=== PATIENT | female | born 1955 | race Caucasian/White ===

== ENCOUNTER 2016-09-15 19:35 | Emergency (ER) | payer BC, OTHER ==
--- NOTE | 2016-09-15 20:22 | EDM.PDOC ---
ED HPI GENERAL MEDICAL PROBLEM - General Chief Complaint: General Stated Complaint: fell Time Seen by Provider: 09/15/16 19:40 Source of Information: Reports: Patient History Limitations: Reports: No Limitations - History of Present Illness INITIAL COMMENTS - FREE TEXT/NARRATIVE: According to patient she was taking her dog for walk, her dog as barking at something and she turned back to look and continued to walk and tripped over the dog and fell, landed of her right forearm and sustained deep abrasion and skin tear over the upper forearm. Able to move her elbow not in pain presently. Pt is not sure of her last tetanus shot. no other injuries. Onset: Today Onset Date: 09/15/16 Onset Time: 19:00 Location: Reports: Other (right elbow) Quality: Reports: Ache Severity: Mild Improves with: Reports: None Worsens with: Reports: None Associated Symptoms: Denies: Confusion, Cough, Fever/Chills, Loss of Appetite, Rash, Shortness of Breath, Syncope, Weakness - Related Data Allergies Allergy/AdvReac Type Severity Reaction Status Date / Time adhesive tape Allergy Intermediate itching Verified 12/20/15 01:18 rash adhesive Allergy itching Verified 12/20/15 01:18 rash Home Meds: Home Meds Amitriptyline [Elavil] 100 mg PO BEDTIME 03/04/13 [History] DULoxetine HCl [Cymbalta] 60 mg PO DAILY 03/04/13 [History] Hydrocodone/Acetaminophen [Hydrocodon-Acetaminophn 10-325] 1 tab PO Q8H PRN [History] Ibuprofen 800 mg PO Q8H PRN 03/04/13 [History] Levothyroxine [Synthroid] 50 mcg PO DAILY 03/04/13 [History] RABEprazole Sodium [Aciphex] 20 mg PO DAILY 03/04/13 [History] Albuterol Sulfate [Proair Respiclick] 90 mcg IH Q4H PRN 09/13/15 [History] Lisinopril 10 mg PO DAILY 09/13/15 [History] Methocarbamol [Methocarbamol] 500 mg PO TID 09/13/15 [History] Potassium Chloride 20 meq PO DAILY 09/13/15 [History] hydrOXYzine HCl [hydrOXYzine] 10 mg PO DAILY 09/13/15 [History] Past Medical History HEENT History: Reports: Impaired Vision Cardiovascular History: Reports: None, Hypertension Respiratory History: Reports: Asthma Gastrointestinal History: Reports: GERD, Other (See Below) Other Gastrointestinal History: constipation Genitourinary History: Reports: Acute Renal Failure 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 parity: 2, gravity: 2 Musculoskeletal History: Reports: Fracture, Osteoarthritis Other Musculoskeletal History: arthritis especially in shoulders, severe fx with plate rt femur, repaired several times shoulders injected with steriods fracture right lower leg 2 days ago fell Psychiatric History: Reports: Addiction, Anxiety, Depression Other Psychiatric History: please note: patient states she stopped smoking approx 8 months ago Endocrine/Metabolic History: Reports: Hypothyroidism, Other (See Below), Osteoporosis, Osteopenia Other Endocrine/Metabolic History: hx of osteomylitis Oncologic (Cancer) History: Reports: None Dermatologic History: Reports: Other (See Below) Other Dermatologic History: Has some allergies whch cause hives, not sure of the source - Infectious Disease History Infectious Disease History: Reports: Chicken Pox, Measles, Mumps - Past Surgical History HEENT Surgical History: Reports: Other (See Below) GI Surgical History: Reports: Hernia, Abdominal Musculoskeletal Surgical History: Reports: Other (See Below) - History Comment History Comment: Pt has a drinking problem recently drawn to my attention. Is also on narcotics for the fracture of her right upper leg, osteomyelitis also - treated at the [facility] in the past year Social & Family History - Family History Family Medical History: Noncontributory - Tobacco Use Smoking Status *Q: Former Smoker Years of Tobacco use: 16 Packs/Tins Daily: 1 Used Tobacco, but Quit: Yes Month Tobacco Last Used: october Second Hand Smoke Exposure: No - Alcohol Use Days Per Week of Alcohol Use: 7 Number of Drinks Per Day: 4 Total Drinks Per Week: 28 - Recreational Drug Use Recreational Drug Use: No ED ROS GENERAL - Review of Systems Review Of Systems: See Below Constitutional: Denies: Fever, Chills HEENT: Denies: Rhinitis, Sinus Problem, Throat Pain, Throat Swelling Respiratory: Denies: Cough, Sputum Cardiovascular: Denies: Chest Pain, Lightheadedness GI/Abdominal: Denies: Abdominal Pain, Nausea, Vomiting : Denies: Dysuria, Flank Pain Musculoskeletal: Denies: Neck Pain, Joint Pain, Joint Swelling Skin: Reports: Bruising. Denies: Pruritis, Rash ED EXAM, GENERAL - Physical Exam Exam: See Below Exam Limited By: No Limitations General Appearance: Alert, WD/WN, No Apparent Distress Eye Exam: Bilateral Eye: EOMI, PERRL Ears: Normal External Exam, Normal Canal, Hearing Grossly Normal, Normal TMs Ear Exam: Bilateral Ear: Auricle Normal, Canal Normal, TM normal Nose: Normal Inspection, Normal Mucosa, No Blood Throat/Mouth: Normal Inspection, Normal Lips, Normal Teeth, Normal Gums, Normal Oropharynx, Normal Voice, No Airway Compromise Head: Atraumatic, Normocephalic Neck: Normal Inspection, Supple, Non-Tender, Full Range of Motion Respiratory/Chest: No Respiratory Distress, Lungs Clear, Normal Breath Sounds, No Accessory Muscle Use, Chest Non-Tender Cardiovascular: Normal Peripheral Pulses, Regular Rate, Rhythm, No Edema, No Gallop, No JVD, No Murmur, No Rub Peripheral Pulses: 2+: Brachial (R), Radial (L) Skin Exam: Warm, Other (Right elbow: there is a 2cm by 3cm skin tear with abrasion over the upper dorsal aspect of the forearm. the wound is hemostatic. there is no dirt contamination of the wound seen. the wound is only skin deep. Good ROM of the right elbow and wrist.) Course - Vital Signs Text/Narrative:: Pt has developed skin tear over the upper right forearm with abrasion. The wound is hemostatic. The wound was washed with normal saline and then iodoform vaseline guaze applied across the wound to prevent skin adherence to dressing. Pressure dressing applied. As she is not sure of her tetanus shot. Tetanus was given today. Advised tylenol 500mg 3-4 times daily as needed. Daily simple dressing. Infection precaution discussed. Followup in clinic next week for recheck. Departure - Departure Time of Disposition: 20:40 Disposition: Home, Self-Care 01 Condition: good Clinical Impression: Skin tear of right upper arm without complication - Discharge Information Forms: ED Department Discharge - Problem List & Annotations (1) Skin tear of right upper arm without complication SNOMED Code(s): 469435027 Code(s): S41.111A - LACERATION W/O FOREIGN BODY OF RIGHT UPPER ARM, INIT ENCNTR Status: Acute - Problem List Review Problem List Initiated/Reviewed/Updated: Yes - Assessment/Plan Assessment:: Skin tear over right forearm Plan: Pt has developed skin tear over the upper right forearm with abrasion. The wound is hemostatic. The wound was washed with normal saline and then iodoform vaseline guaze applied across the wound to prevent skin adherence to dressing. Pressure dressing applied. As she is not sure of her tetanus shot. Tetanus was given today. Advised tylenol 500mg 3-4 times daily as needed. Daily simple dressing. Infection precaution discussed. Followup in clinic next week for recheck.
[2016-09-15] MEDS ORDERED: Diphtheria/Tetanus Toxoids,Adult (Td) 0.5 ML SDV IM ONE (20:29)
[2016-09-16 00:19] VITALS: BP 136/111
== END 2016-09-15 20:32 | disposition home or self-care (01) ==
LOC: LB.ED 19:35
DX: S50.811A Abrasion of right forearm, initial encounter (principal); I10 Essential (primary) hypertension; J45.909 Unspecified asthma, uncomplicated; K21.9 Gastro-esophageal reflux disease without esophagitis; M19.90 Unspecified osteoarthritis, unspecified site; F41.9 Anxiety disorder, unspecified; F32.9 Major depressive disorder, single episode, unspecified; E03.9 Hypothyroidism, unspecified; M81.0 Age-related osteoporosis without current pathological fracture; Z98.890 Other specified postprocedural states; Z79.899 Other long term (current) drug therapy; Z23 Encounter for immunization; Z87.891 Personal history of nicotine dependence; W01.0XXA Fall on same level from slipping, tripping and stumbling without subsequent striking against object, initial encounter
CPT/HCPCS: 90471; 90714; 99283-25

== ENCOUNTER 2018-07-17 23:09 | Emergency (ER) | payer MEDICARE, BC, OTHER ==
[2018-07-17 23:32] VITALS: BP 126/108
--- NOTE | 2018-07-17 23:41 | EDM.PDOC ---
ED HPI GENERAL MEDICAL PROBLEM - General Chief Complaint: General Stated Complaint: POSSIBLE UE Fx Time Seen by Provider: 07/17/18 23:30 Source of Information: Reports: Patient, RN History Limitations: Reports: Intoxication - History of Present Illness INITIAL COMMENTS - FREE TEXT/NARRATIVE: 63 yr female presents to ER, brought in by EMS. Pt states she fell at home and hit the floor and now her right shoulder hurts. Right Shoulder Pain Score (Numeric/FACES): 7 - Related Data Allergies Allergy/AdvReac Type Severity Reaction Status Date / Time adhesive tape Allergy Intermediate itching Verified 07/17/18 23:31 rash adhesive Allergy itching Verified 07/17/18 23:31 rash prednisolone Allergy Nausea Verified 07/17/18 23:31 Home Meds: Home Meds Amitriptyline [Elavil] 100 mg PO BEDTIME 03/04/13 [History] DULoxetine HCl [Cymbalta] 60 mg PO DAILY 03/04/13 [History] Hydrocodone/Acetaminophen [Hydrocodon-Acetaminophn 10-325] 1 tab PO Q8H PRN [History] Ibuprofen 800 mg PO Q8H PRN 03/04/13 [History] Levothyroxine [Synthroid] 50 mcg PO DAILY 03/04/13 [History] RABEprazole Sodium [Aciphex] 20 mg PO DAILY 03/04/13 [History] Albuterol Sulfate [Proair Respiclick] 90 mcg IH Q4H PRN 09/13/15 [History] Lisinopril 10 mg PO DAILY 09/13/15 [History] Methocarbamol 500 mg PO TID 09/13/15 [History] Potassium Chloride 20 meq PO DAILY 09/13/15 [History] hydrOXYzine HCl [hydrOXYzine] 10 mg PO DAILY 09/13/15 [History] Past Medical History HEENT History: Reports: Impaired Vision Cardiovascular History: Reports: None, Hypertension Respiratory History: Reports: Asthma Gastrointestinal History: Reports: GERD, Other (See Below) Other Gastrointestinal History: constipation Genitourinary History: Reports: Acute Renal Failure 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 parity: 2, gravity: 2 Musculoskeletal History: Reports: Fracture, Osteoarthritis Other Musculoskeletal History: arthritis especially in shoulders, severe fx with plate rt femur, repaired several times shoulders injected with steriods fracture right lower leg 2 days ago fell Psychiatric History: Reports: Addiction, Anxiety, Depression Other Psychiatric History: please note: patient states she stopped smoking approx 8 months ago Endocrine/Metabolic History: Reports: Hypothyroidism, Other (See Below), Osteoporosis, Osteopenia Other Endocrine/Metabolic History: hx of osteomylitis Oncologic (Cancer) History: Reports: None Dermatologic History: Reports: Other (See Below) Other Dermatologic History: Has some allergies whch cause hives, not sure of the source - Infectious Disease History Infectious Disease History: Reports: Chicken Pox, Measles, Mumps - Past Surgical History HEENT Surgical History: Reports: Other (See Below) GI Surgical History: Reports: Hernia, Abdominal Musculoskeletal Surgical History: Reports: Other (See Below) - History Comment History Comment: Pt has a drinking problem recently drawn to my attention. Is also on narcotics for the fracture of her right upper leg, osteomyelitis also - treated at the [facility] in the past year Social & Family History - Family History Family Medical History: Noncontributory - Tobacco Use Smoking Status *Q: Current Every Day Smoker ED ROS GENERAL - Review of Systems Review Of Systems: See Below Constitutional: Reports: Weakness HEENT: Reports: No Symptoms Respiratory: Reports: No Symptoms Cardiovascular: Reports: No Symptoms Musculoskeletal: Reports: Shoulder Pain (right) Skin: Reports: Dryness, Bruising ED EXAM, GENERAL - Physical Exam Exam: See Below Exam Limited By: Intoxication General Appearance: Alert, No Apparent Distress Eye Exam: Bilateral Eye: PERRL Ears: Normal External Exam, Hearing Grossly Normal Nose: Normal Inspection, Normal Mucosa Throat/Mouth: Normal Lips, Normal Voice, No Airway Compromise Head: Atraumatic, Normocephalic. No: Facial Swelling, Facial Tenderness Neck: Supple, Non-Tender, Full Range of Motion Respiratory/Chest: No Respiratory Distress, Lungs Clear, Normal Breath Sounds Cardiovascular: Regular Rate, Rhythm, No Edema Peripheral Pulses: 2+: Radial (L), Radial (R) GI/Abdominal: Soft, Non-Tender Back Exam: Normal Inspection Extremities: Limited Range of Motion (right shoulder, moving extremities well.) , Other (pain with moving right shoulder, swelling to mid clavicle area). No: Arm Pain Neurological: Alert, Oriented Psychiatric: Normal Affect, Normal Mood Skin Exam: Warm, Dry, Other (multiple bruising/redness to arms and scabbed skin tears. Skin intact to shoulder and clavicle with mild swelling and bruising noted.) Lymphatic: No Adenopathy Course - Vital Signs Last Recorded V/S: Last Vital Signs Temp 98.1 F 07/17/18 23:22 Pulse 63 07/17/18 23:22 Resp 16 07/17/18 23:22 BP 126/108 H 07/17/18 23:22 Pulse Ox 93 L 07/17/18 23:22 - Orders/Labs/Meds Orders: Active Orders 24 hr Category Date Time Status Shoulder Comp Rt [CR] Stat Exams 07/17/18 23:39 Taken Departure - Departure Time of Disposition: 01:25 Disposition: Home, Self-Care 01 Condition: Fair Clinical Impression: Clavicle fracture - Discharge Information *PRESCRIPTION DRUG MONITORING PROGRAM REVIEWED*: Not Applicable *COPY OF PRESCRIPTION DRUG MONITORING REPORT IN PATIENT SARY: Not Applicable Instructions: Clavicle Fracture, [id number] Referrals: PCP,None [Primary Care Provider] - Forms: ED Department Discharge Additional Instructions: Keep applied immobilizer in place at all times. Apply cold compress to affected area for 10-15 minutes every 2-3 hours to help decrease swelling and for pain relief. Follow up in clinic tomorrow, , 07/18/2018 for further evaluation with Dr. Luo. Call with any questions. - My Orders Last 24 Hours: My Active Orders 07/17/18 23:39 Shoulder Comp Rt [CR] Stat - Assessment/Plan Last 24 Hours: My Active Orders 07/17/18 23:39 Shoulder Comp Rt [CR] Stat Plan: Reviewed rad. read of x-ray and reviewed results with pt and son. Right clavicle fracture and possible rib fracture. Pt has pain to clavicle area and bruising noted to mid clavicle area. Ice applied and immobilizer applied. Instructed on use of immobilizer and keep arm and shoulder in immobile position. Expect 6-8 weeks for healing of fracture. May use Tylenol and alternate with Ibuprofen for relief of pain. Ice important for at least first 48 hour. RTC tomorrow with PCP for follow-up. Pt discharged to care of son.
--- NOTE | 2018-07-18 09:02 | CR ---
Date of Service: 07/17/18 Clinical Data: RIGHT SHOULDER: Comparison is made to a prior exam dated 12/18/14. There is diffuse osteopenia. There is a comminuted minimally displaced fracture through the distal clavicle. There is cortical stepoff of the right third and fourth ribs consistent with displaced rib fractures. There are old fractures of the right eight and ninth ribs anteriorly. No other acute abnormalities. [id number] [facility]
== END 2018-07-18 01:18 | disposition home or self-care (01) ==
LOC: LB.ED 23:09
DX: S42.031A Displaced fracture of lateral end of right clavicle, initial encounter for closed fracture (principal); K21.9 Gastro-esophageal reflux disease without esophagitis; I10 Essential (primary) hypertension; F41.9 Anxiety disorder, unspecified; F32.9 Major depressive disorder, single episode, unspecified; E03.9 Hypothyroidism, unspecified; Z91.09 Other allergy status, other than to drugs and biological substances; Z88.8 Allergy status to other drugs, medicaments and biological substances; Z79.899 Other long term (current) drug therapy; W19.XXXA Unspecified fall, initial encounter; Y92.009 Unspecified place in unspecified non-institutional (private) residence as the place of occurrence of the external cause
CPT/HCPCS: 73030-RT; 99283-25; A0425; A0429

== ENCOUNTER 2018-07-22 14:26 | Emergency (ER) | payer MEDICARE, BC, OTHER ==
[2018-07-22] MEDS ORDERED: Ketorolac 60 MG/2 ML SDV IVPUSH ONE (14:44)
[2018-07-22] MEDS ORDERED: Sodium Chloride 0.9% 10 ML Syringe FLUSH PRN ×2 (14:44→15:13)
--- NOTE | 2018-07-22 15:01 | EDM.PDOC ---
ED HPI GENERAL MEDICAL PROBLEM - General Chief Complaint: Abdominal Pain Stated Complaint: pain Time Seen by Provider: 07/22/18 14:45 Source of Information: Reports: Patient, Family History Limitations: Reports: No Limitations - History of Present Illness INITIAL COMMENTS - FREE TEXT/NARRATIVE: This patient presents to the ED for evaluation of pain. She is accompanied by her son who believes she may have a bowel obstruction "again." He states that she had one in the recent past and was treated in [place] without surgical intervention. She had a fall 5 days ago and fractured her right clavicle and states she is having pain from that as well. She denies a bowel movement in the past 5 days-she has been on narcotic pain medication for her fracture during this time as well. Her appetite has been decreased but she has been drinking some fluids. She denies other concerns or complaints except that her shoulder hurts. Onset: Gradual - Related Data Allergies Allergy/AdvReac Type Severity Reaction Status Date / Time adhesive tape Allergy Intermediate itching Verified 07/22/18 15:09 rash adhesive Allergy itching Verified 07/22/18 15:09 rash prednisolone Allergy Nausea Verified 07/22/18 15:09 Home Meds: Home Meds Amitriptyline [Elavil] 100 mg PO BEDTIME 03/04/13 [History] DULoxetine HCl [Cymbalta] 60 mg PO DAILY 03/04/13 [History] Hydrocodone/Acetaminophen [Hydrocodon-Acetaminophn 10-325] 1 tab PO Q8H PRN [History] Ibuprofen 800 mg PO Q8H PRN 03/04/13 [History] Levothyroxine [Synthroid] 50 mcg PO DAILY 03/04/13 [History] RABEprazole Sodium [Aciphex] 20 mg PO DAILY 03/04/13 [History] Albuterol Sulfate [Proair Respiclick] 90 mcg IH Q4H PRN 09/13/15 [History] Lisinopril 10 mg PO DAILY 09/13/15 [History] Methocarbamol 500 mg PO TID 09/13/15 [History] Potassium Chloride 20 meq PO DAILY 09/13/15 [History] hydrOXYzine HCl [hydrOXYzine] 10 mg PO DAILY 09/13/15 [History] Past Medical History HEENT History: Reports: Impaired Vision Cardiovascular History: Reports: None, Hypertension Respiratory History: Reports: Asthma Gastrointestinal History: Reports: GERD, Other (See Below) Other Gastrointestinal History: constipation Genitourinary History: Reports: Acute Renal Failure AGED OR DISABLED CARER History: Reports: Other AGED OR DISABLED CARER History: 2 son vaginal. parity: 2, gravity: 2 Musculoskeletal History: Reports: Fracture, Osteoarthritis Other Musculoskeletal History: arthritis especially in shoulders, severe fx with plate rt femur, repaired several times shoulders injected with steriods fracture right lower leg 2 days ago fell Psychiatric History: Reports: Addiction, Anxiety, Depression Other Psychiatric History: please note: patient states she stopped smoking approx 8 months ago Endocrine/Metabolic History: Reports: Hypothyroidism, Other (See Below), Osteoporosis, Osteopenia Other Endocrine/Metabolic History: hx of osteomylitis Oncologic (Cancer) History: Reports: None Dermatologic History: Reports: Other (See Below) Other Dermatologic History: Has some allergies whch cause hives, not sure of the source - Infectious Disease History Infectious Disease History: Reports: Chicken Pox, Measles, Mumps - Past Surgical History HEENT Surgical History: Reports: Other (See Below) GI Surgical History: Reports: Hernia, Abdominal Musculoskeletal Surgical History: Reports: Other (See Below) - History Comment History Comment: Pt has a drinking problem recently drawn to my attention. Is also on narcotics for the fracture of her right upper leg, osteomyelitis also - treated at the of in the past year Social & Family History - Family History Family Medical History: Noncontributory - Caffeine Use Caffeine Use: Reports: Coffee ED ROS GENERAL - Review of Systems Review Of Systems: See Below Constitutional: Reports: Decreased Appetite. Denies: Fever HEENT: Reports: No Symptoms Respiratory: Denies: Shortness of Breath, Cough Cardiovascular: Denies: Chest Pain, Lightheadedness Endocrine: Reports: No Symptoms GI/Abdominal: Reports: Abdominal Pain, Constipation, Decreased Appetite. Denies : Bloody Stool, Diarrhea, Vomiting : Reports: No Symptoms Musculoskeletal: Reports: Shoulder Pain Skin: Reports: Dryness, Pruritis, Erythema Neurological: Reports: Other (son states she has been hallucinating the past couple of days but is generally alert and oriented.) ED EXAM, GI/ABD - Physical Exam Exam: See Below Exam Limited By: No Limitations General Appearance: Alert, WD/WN, No Apparent Distress Eyes: Bilateral: Normal Appearance Ears: Normal External Exam Nose: Normal Inspection Throat/Mouth: Normal Inspection Neck: Normal Inspection, Supple, Non-Tender, Full Range of Motion Respiratory/Chest: No Respiratory Distress, Lungs Clear, Normal Breath Sounds, No Accessory Muscle Use Cardiovascular: Regular Rate, Rhythm GI/Abdominal Exam: No Organomegaly, Tender, Abnormal Bowel Sounds, Other ( Abdomen distended, tenderness in all quadrants particularly right upper quadrant. Hypoactive bowel sounds. ). No: Rebound Extremities: Other (distal CMS intact; deformity of right clavicle noted. ) Neurological: Alert, Oriented Psychiatric: Normal Affect, Normal Mood Skin Exam: Warm, Dry, Erythema, Rash, Other (skin erythematous with some scabbed lesions and scars. Evidence of itching with flaking skin on arms) Course - Vital Signs Last Recorded V/S: Last Vital Signs Temp 36.6 C 07/22/18 14:29 Pulse 94 07/22/18 14:29 Resp 22 H 07/22/18 14:29 BP 130/96 H 07/22/18 14:29 Pulse Ox 98 07/22/18 14:29 - Orders/Labs/Meds Orders: Active Orders 24 hr Category Date Time Status NPO [Nothing Per Oral Diet] [DIET] Diet 07/23/18 Breakfast Ordered Abdomen Pelvis wo Cont [CT] Stat Exams 07/22/18 14:45 Taken LACTIC ACID [CHEM] Stat Lab 07/22/18 17:31 Ordered Haloperidol Lactate [Haldol] Med 07/22/18 18:03 Once 1 mg IVPUSH ONETIME ONE Iopamidol [Isovue-300 (61%)] Med 07/22/18 15:15 Active 100 ml IV . DIRECTED Sodium Chloride 0.9% [Normal Saline] 1,000 ml Med 07/22/18 14:45 Active IV ASDIRECTED Sodium Chloride 0.9% [Saline Flush] Med 07/22/18 14:44 Active 10 ml FLUSH ASDIRECTED PRN Sodium Chloride 0.9% [Saline Flush] Med 07/22/18 15:13 Active 10 ml FLUSH ASDIRECTED PRN Peripheral IV Insertion Adult [OM.PC] Routine Oth 07/22/18 15:13 Ordered Saline Lock Insert [OM.PC] Stat Oth 07/22/18 14:44 Ordered Medication Orders Sodium Chloride (Normal Saline) 1,000 mls @ 1,000 mls/hr IV ASDIRECTED DANA Last Admin: 04/15/19 15:07 Dose: 1,000 mls/hr Iopamidol (Isovue-300 (61%)) 100 ml IV . DIRECTED DANA Sodium Chloride (Saline Flush) 10 ml FLUSH ASDIRECTED PRN PRN Reason: Keep Vein Open Last Admin: 07/22/18 15:00 Dose: 10 ml Sodium Chloride (Saline Flush) 10 ml FLUSH ASDIRECTED PRN PRN Reason: Keep Vein Open Labs: Laboratory Tests 07/22/18 07/22/18 Range/Units 14:59 14:59 WBC 4.5 D (4.0-11.0) K/uL RBC 3.39 L (3.80-5.80) M/uL Hgb 12.6 (11.5-16.5) g/dL Hct 36.4 L (37.0-47.0) % MCV 107 H (76-96) fL MCH 37.2 H (27.0-32.0) pg MCHC 34.6 (31.0-35.0) g/dL RDW 15.0 (11.0-16.0) % Plt Count 220 (150-500) K/uL MPV 9.4 (6.0-10.0) fL Neut % (Auto) 77.6 H (45.0-70.0) % Lymph % (Auto) 6.5 L (20.0-40.0) % [place] % (Auto) 15.0 H (3.0-10.0) % Eos % (Auto) 0.7 L (1.0-5.0) % Baso % (Auto) 0.2 (0.0-0.5) % Neut # (Auto) 3.47 (2.00-7.50) K/uL Lymph # (Auto) 0.29 L (1.50-4.00) K/uL [place] # (Auto) 0.67 (0.20-0.80) K/uL Eos # (Auto) 0.03 L (0.04-0.40) K/uL Baso # (Auto) 0.01 L (0.02-0.10) K/uL Sodium 133 L (136-145) mmol/L Potassium 5.5 H D (3.5-5.1) mmol/L Chloride 99 (98-107) mmol/L Carbon Dioxide 15.7 L D (21.0-32.0) mmol/L Anion Gap 23.8 H (5.0-15.0) mmol/L BUN 26 D (8-26) mg/dL Creatinine 1.43 H D (0.55-1.02) mg/dL Est Cr Clr Drug Dosing TNP Estimated GFR (MDRD) 37 L (>60) MLS/MIN BUN/Creatinine Ratio 18.2 (6-25) Glucose 71 L (74-100) mg/dL Calcium 8.7 (8.5-10.1) mg/dL Total Bilirubin 1.2 H D (0.0-1.0) mg/dL AST 28 (15-37) U/L ALT 29 (12-78) U/L Alkaline Phosphatase 210 H (46-116) U/L Total Protein 7.1 (6.4-8.2) g/dL Albumin 2.9 L (3.4-5.0) g/dL Globulin 4.2 (2.2-4.2) g/dL Albumin/Globulin Ratio 0.7 L (0.8-2.0) Meds: Medications Generic Name Dose Route Start Last Admin Trade Name Freq PRN Reason Stop Dose Admin Sodium Chloride 1,000 mls @ 1,000 mls/hr 07/22/18 14:45 07/22/18 15:07 Normal Saline IV 1,000 mls/hr ASDIRECTED DANA Administration Iopamidol 100 ml 07/22/18 15:15 Isovue-300 (61%) IV . DIRECTED DANA Sodium Chloride 10 ml 07/22/18 14:44 07/22/18 15:00 Saline Flush FLUSH 10 ml ASDIRECTED PRN Administration Keep Vein Open Sodium Chloride 10 ml 07/22/18 15:13 Saline Flush FLUSH ASDIRECTED PRN Keep Vein Open Discontinued Medications Generic Name Dose Route Start Last Admin Trade Name Freq PRN Reason Stop Dose Admin Haloperidol Lactate Confirm 07/22/18 18:14 Haldol Administered 07/22/18 18:15 Dose 5 mg .ROUTE .STK-MED ONE Hydromorphone HCl Confirm 07/22/18 15:56 07/22/18 15:56 Dilaudid Administered 07/22/18 15:57 Not Given Dose 2 mg .ROUTE .STK-MED ONE Hydromorphone HCl 0.5 mg 07/22/18 15:55 07/22/18 15:57 Dilaudid IVPUSH 07/22/18 15:56 0.5 mg ONETIME ONE Administration Hydromorphone HCl 0.5 mg 07/22/18 17:20 07/22/18 17:21 Dilaudid IVPUSH 07/22/18 17:21 0.5 mg ONETIME ONE Administration Hydromorphone HCl Confirm 07/22/18 17:24 Dilaudid Administered 07/22/18 17:25 Dose 2 mg .ROUTE .STK-MED ONE Hydromorphone HCl 0.5 mg 07/22/18 17:45 Dilaudid IVPUSH 07/22/18 17:46 ONETIME ONE Hydromorphone HCl Confirm 07/22/18 17:52 Dilaudid Administered 07/22/18 17:53 Dose 2 mg .ROUTE .STK-MED ONE Ketorolac Tromethamine 15 mg 07/22/18 14:44 07/22/18 15:00 Toradol IVPUSH 07/22/18 14:45 15 mg ONETIME ONE Administration Ketorolac Tromethamine Confirm 07/22/18 15:05 07/22/18 15:08 Toradol Administered 07/22/18 15:06 Not Given Dose 30 mg .ROUTE .STK-MED ONE Lorazepam 2 mg 07/22/18 17:44 Ativan IVPUSH 07/22/18 17:45 ONETIME ONE Lorazepam Confirm 07/22/18 17:52 Ativan Administered 07/22/18 17:53 Dose 2 mg .ROUTE .STK-MED ONE Sodium Chloride 50 ml 07/22/18 15:13 07/22/18 15:56 Normal Saline FLUSH 07/22/18 15:14 50 ml ONETIME ONE Administration - Re-Assessments/Exams Free Text/Narrative Re-Assessment/Exam: 07/22/18 17:20 This patient presents to the ED for evaluation of pain. History and clinical findings are most consistent with a small bowel obstruction. According to the CT report, she also has findings concerning for a volvulus. An NG tube was placed and her pain was fairly well controlled with Dilaudid. I contacted [facility] and spoke with hospitalist, Dr. Parra regarding the transfer and definitive care of this patient. Dr. Parra did agree to accept this patient in transfer. Arrangements were made for her transfer to their facility by ground BLS. The patient was stable at the time of transfer. 07/22/18 18:10 Addendum per EMS: patient is well known to EMS. She has a history of heavy drinking. She denies having any alcohol as did her son. Departure - Departure Time of Disposition: 18:20 Disposition: DC/Tfer to [facility] Condition: Fair Clinical Impression: Small bowel obstruction - Discharge Information *PRESCRIPTION DRUG MONITORING PROGRAM REVIEWED*: Not Applicable *COPY OF PRESCRIPTION DRUG MONITORING REPORT IN PATIENT SARY: Not Applicable Referrals: PCP,None [Primary Care Provider] - Forms: ED Department Discharge, ED Return to Work/School Form - My Orders Last 24 Hours: My Active Orders 07/22/18 14:44 Sodium Chloride 0.9% [Saline Flush] 10 ml FLUSH ASDIRECTED PRN Saline Lock Insert [OM.PC] Stat 07/22/18 14:45 Abdomen Pelvis wo Cont [CT] Stat Sodium Chloride 0.9% [Normal Saline] 1,000 ml IV ASDIRECTED 07/22/18 15:13 Sodium Chloride 0.9% [Saline Flush] 10 ml FLUSH ASDIRECTED PRN Peripheral IV Insertion Adult [OM.PC] Routine 07/22/18 15:15 Iopamidol [Isovue-300 (61%)] 100 ml IV . DIRECTED 07/22/18 17:31 LACTIC ACID [CHEM] Stat 07/22/18 18:03 Haloperidol Lactate [Haldol] 1 mg IVPUSH ONETIME ONE 07/23/18 Breakfast NPO [Nothing Per Oral Diet] [DIET] - Assessment/Plan Last 24 Hours: My Active Orders 07/22/18 14:44 Sodium Chloride 0.9% [Saline Flush] 10 ml FLUSH ASDIRECTED PRN Saline Lock Insert [OM.PC] Stat 07/22/18 14:45 Abdomen Pelvis wo Cont [CT] Stat Sodium Chloride 0.9% [Normal Saline] 1,000 ml IV ASDIRECTED 07/22/18 15:13 Sodium Chloride 0.9% [Saline Flush] 10 ml FLUSH ASDIRECTED PRN Peripheral IV Insertion Adult [OM.PC] Routine 07/22/18 15:15 Iopamidol [Isovue-300 (61%)] 100 ml IV . DIRECTED 07/22/18 17:31 LACTIC ACID [CHEM] Stat 07/22/18 18:03 Haloperidol Lactate [Haldol] 1 mg IVPUSH ONETIME ONE 07/23/18 Breakfast NPO [Nothing Per Oral Diet] [DIET]
[2018-07-22] MEDS ORDERED: Ketorolac 30 MG/ML SDV ONE (15:05)
[2018-07-22] MEDS: Sodium Chloride 0.9% 1,000 ML IV SCH ×2 (15:07→16:48)
[2018-07-22] MEDS ORDERED: Sodium Chloride 0.9% 50 ML SDV FLUSH ONE (15:13)
[2018-07-22] MEDS ORDERED: Iopamidol 612 MG/ML 100 ML Bottle IV SCH (15:15)
[2018-07-22] MEDS ORDERED: HYDROmorphone 2 MG/ML Syringe IVPUSH ONE ×3 (15:55→17:45)
[2018-07-22] MEDS ORDERED: HYDROmorphone 2 MG/ML Syringe ONE ×3 (15:56→17:52)
[2018-07-22 16:43] VITALS: BP 130/96
[2018-07-22] MEDS ORDERED: LORazepam 2 MG/ML SDV IVPUSH ONE (17:44)
[2018-07-22] MEDS ORDERED: LORazepam 2 MG/ML SDV ONE (17:52)
[2018-07-22] MEDS ORDERED: Haloperidol Lactate 5 MG/ML SDV IVPUSH ONE ×2 (18:03→18:16)
[2018-07-22] MEDS ORDERED: Haloperidol Lactate 5 MG/ML SDV ONE (18:14)
--- NOTE | 2018-07-23 09:29 | CT ---
DATE OF SERVICE: 07/22/2018 CLINICAL DATA: Abdominal pain, recent bowel obstruction Unenhanced abdomen and pelvic CT: Multislice acquisition through the abdomen and pelvis without IV or oral contrast was performed. No priors. There is a small right pleural effusion. There are atelectatic changes in the dependent portion both lower lungs. There is mild eventration of the right hemidiaphragm. The heart size is normal. No significant pericardial effusion. The liver is normal size with homogeneous attenuation. No focal hepatic lesions. Gallbladder is mildly distended. No calcified gallstones. The spleen appears normal. The pancreas is mildly atrophic. There are calcifications within the head and uncinate process of the pancreas consistent chronic pancreatitis. The right and left adrenals appear normal. No evidence of adrenal mass. There are small nonobstructing renal calculi on the left. No hydronephrosis or hydroureter. The patient is status post right hip internal fixation. This does cause significant beam hardening streak artifact obscuring adjacent structures. The bladder is partially fluid-filled. It appears grossly normal. The patient is status post hysterectomy. There are numerous fluid and gas-filled, distended loops of small bowel throughout the abdomen and pelvis with air-fluid levels consistent obstruction. The cecum and ascending colon also gas filled and distended. The distal colon is decompressed. The possibility of cecal volvulus should be considered. Other causes for obstruction cannot be excluded. No free air. No free fluid. No adenopathy. No aortic aneurysm. Impression: Abnormal exam. See above. The findings were discussed with the patient's health care provider by telephone. CHRISTIANO
== END 2018-07-22 18:25 ==
LOC: LB.ED 14:26
DX: K56.609 Unspecified intestinal obstruction, unspecified as to partial versus complete obstruction (principal); K21.9 Gastro-esophageal reflux disease without esophagitis; J45.909 Unspecified asthma, uncomplicated; I10 Essential (primary) hypertension; F41.9 Anxiety disorder, unspecified; F32.9 Major depressive disorder, single episode, unspecified; E03.9 Hypothyroidism, unspecified; Z91.048 Other nonmedicinal substance allergy status; Z88.8 Allergy status to other drugs, medicaments and biological substances; Z79.899 Other long term (current) drug therapy
CPT/HCPCS: 36415; 74176; 80053; 85025; 96374; 96375; 96376; 99284-25; A0425; A0429; J1170; J1630; J1885; J2060; J7030

== ENCOUNTER 2018-08-25 18:05 | Emergency (ER) | payer MEDICARE, BC, OTHER ==
--- NOTE | 2018-08-25 18:48 | EDM.PDOC ---
ED HPI GENERAL MEDICAL PROBLEM - General Chief Complaint: General Stated Complaint: weakness Time Seen by Provider: 08/25/18 18:10 Source of Information: Reports: Patient History Limitations: Reports: No Limitations - History of Present Illness INITIAL COMMENTS - FREE TEXT/NARRATIVE: 63 year old female s/p hemicolectomy on 07/22/18 for bowel obstruction. Very conflicting history from son and patient. According to patient she claims she has been having abdominal pain for 4-5 days now. Most of the pain is in the upper abdomen and periumbilical region. Has not been able to eat much or drink for the past 5 days. No fever or chills. She claims she has not been able to urinate today. She had small amount of urine yesterday,She did urinate this morning, very little, after which she has not urinated much. Abdominal bloating. Her last bowel movement was last night and was hard stool. She was brought in by her son as she has been c/o abdominal pain. According to son, patient has been having abdominal pain for 4 days, has not eaten or drunk anything for 4 days. Also she has not urinated since yesterday. No nausea or vomiting. No fever or chills. He is concerned that her kidney failure has got worse, as she has renal failure. She has been confused. Pt claims she has not used alcohol since after her surgery. Onset: Gradual Onset Date: 08/22/18 Duration: Getting Worse Quality: Reports: Ache Severity: Moderate Associated Symptoms: Denies: Confusion, Chest Pain, Cough, Diaphoresis, Fever/ Chills, Headaches, Nausea/Vomiting, Rash, Seizure, Shortness of Breath, Syncope , Weakness Abdomen Pain Score (Numeric/FACES): 4 - Related Data Allergies Allergy/AdvReac Type Severity Reaction Status Date / Time adhesive tape Allergy Intermediate itching Verified 08/25/18 20:25 rash adhesive Allergy itching Verified 08/25/18 20:25 rash prednisolone Allergy Nausea Verified 08/25/18 20:25 Home Meds: Home Meds DULoxetine HCl [Cymbalta] 60 mg PO DAILY 03/04/13 [History] Ibuprofen 800 mg PO Q8H PRN 03/04/13 [History] Levothyroxine [Synthroid] 50 mcg PO DAILY 03/04/13 [History] Albuterol Sulfate [Proair Respiclick] 90 mcg IH Q4H PRN 09/13/15 [History] Methocarbamol 500 mg PO TID 09/13/15 [History] Potassium Chloride 20 meq PO DAILY 09/13/15 [History] Doxepin [SINEquan] 50 mg PO BEDTIME 08/25/18 [History] Esomeprazole [NexIUM] 40 mg PO DAILY 08/25/18 [History] Folic Acid 1 mg PO DAILY 08/25/18 [History] Magnesium Oxide 400 mg PO DAILY 08/25/18 [History] Multivit-Min/FA/Lycopene/Lut [Certavite Sr-Antioxidant Tab] 1 tab PO DAILY 08/25 [History] Pramoxine HCl/Benzyl Alcohol [Itch-X] 1 applic TOP DAILY 08/25/18 [History] Thiamine HCl [Vitamin B-1] 1 tab PO DAILY 08/25/18 [History] buPROPion [buPROPion XL] 150 mg PO DAILY 08/25/18 [History] diphenhydrAMINE HCl/Zinc Acet [Benadryl Itch Stopping Crm] 1 applic TOP BID PRN 08/25/18 [History] Past Medical History HEENT History: Reports: Impaired Vision Cardiovascular History: Reports: None, Hypertension Respiratory History: Reports: Asthma Gastrointestinal History: Reports: GERD, Other (See Below) Other Gastrointestinal History: constipation Genitourinary History: Reports: Acute Renal Failure [employer]ER History: Reports: Other [employer]ER History: 2 son vaginal. parity: 2, gravity: 2 Musculoskeletal History: Reports: Fracture, Osteoarthritis Other Musculoskeletal History: arthritis especially in shoulders, severe fx with plate rt femur, repaired several times shoulders injected with steriods fracture right lower leg 2 days ago fell Psychiatric History: Reports: Addiction, Anxiety, Depression Other Psychiatric History: please note: patient states she stopped smoking approx 8 months ago Endocrine/Metabolic History: Reports: Hypothyroidism, Other (See Below), Osteoporosis, Osteopenia Other Endocrine/Metabolic History: hx of osteomylitis Oncologic (Cancer) History: Reports: None Dermatologic History: Reports: Other (See Below) Other Dermatologic History: Has some allergies whch cause hives, not sure of the source - Infectious Disease History Infectious Disease History: Reports: Chicken Pox, Measles, Mumps - Past Surgical History HEENT Surgical History: Reports: Other (See Below) GI Surgical History: Reports: Hernia, Abdominal Musculoskeletal Surgical History: Reports: Other (See Below) - History Comment History Comment: Pt has a drinking problem recently drawn to my attention. Is also on narcotics for the fracture of her right upper leg, osteomyelitis also - treated at the [facility] in the past year Social & Family History - Family History Family Medical History: Noncontributory - Caffeine Use Caffeine Use: Reports: Coffee ED ROS GENERAL - Review of Systems Review Of Systems: See Below Constitutional: Reports: Chills, Decreased Appetite. Denies: Fever, Malaise HEENT: Denies: Ear Pain, Rhinitis, Throat Pain Respiratory: Denies: Shortness of Breath, Cough, Sputum Cardiovascular: Denies: Chest Pain, Lightheadedness GI/Abdominal: Reports: Abdominal Pain, Distension. Denies: Constipation, Diarrhea, Difficulty Swallowing, Flatus, Hematemesis, Nausea, Vomiting : Reports: Urinary Retention. Denies: Discharge, Dysuria, Flank Pain, Frequency, Hematuria, Urgency Musculoskeletal: Denies: Joint Pain, Joint Swelling Skin: Denies: Bruising, Pruritis, Rash Neurological: Denies: Confusion, Dizziness, Headache, Numbness, Tingling Psychiatric: Denies: Agitation, Anxiety ED EXAM, GENERAL - Physical Exam Exam: See Below Exam Limited By: No Limitations General Appearance: Alert, WD/WN, Mild Distress, Other (Pt does not appear confused to me, answers appropriately.) Eye Exam: Bilateral Eye: EOMI, PERRL Ears: Normal External Exam, Normal Canal, Hearing Grossly Normal, Normal TMs Nose: Normal Inspection, Normal Mucosa, No Blood Throat/Mouth: Normal Inspection, Normal Lips, Normal Teeth, Normal Gums, Normal Oropharynx, Normal Voice, No Airway Compromise Head: Atraumatic, Normocephalic Neck: Normal Inspection, Supple, Non-Tender, Full Range of Motion Respiratory/Chest: No Respiratory Distress, Lungs Clear, Normal Breath Sounds, No Accessory Muscle Use, Chest Non-Tender Cardiovascular: Normal Peripheral Pulses, Regular Rate, Rhythm, No Edema, No Gallop, No JVD, No Murmur, No Rub GI/Abdominal: Soft, Distended, Tender (suprapubic mass- appears like distended urinary bladder), Abnormal Bowel Sounds (slightly hyperactive in the periumbilical region.), Other (There is midline healed scar noted. there is a small area of superficial wound over the scar.there is distension over the lower abdomen. Tense distended swellling noted from suprapubic region to the umbilicus.Tender to palpation.Appears like distended bladder.). No: Guarding, Rigid, Rebound Back Exam: Normal Inspection, Full Range of Motion, NT Extremities: Normal Inspection, Normal Range of Motion, Non-Tender, Normal Capillary Refill, No Pedal Edema Skin Exam: Warm, Intact, Other (chronic epidermal erythema from scratching the skin.) Course - Vital Signs Text/Narrative:: Pt has had 4 days history of abdominal pain with distension. She has not had very minimal urine output yesterday and has not had any today. There is a suprapubic mass consistent with a distended bladder. She does have hyperactive upper abdominal bowel sounds. As patient has had 4 days history of abdominal pain with distension and also pt is very poor historian, I did get Ct abdomen and pelvis done. Pt was catheterized and drained about 700cc of foul smelling high colored urine. Her white count is 17K. Her Electrolytes are stable, her creat is up at 1.6 with BUN of 20. UA does show plenty of WBC. Pt was started on Iv normal saline bolus of 500 followed by NS with KCL at 20mq at 125cc/hr.Urine culture ordered. Pt's Ct abdomen was reported as SBO , there is anterior abdominal wall inflammation with anterior abdominal wall gas containing fluid collection along the anterior abdominal wall roughly measuring 0.9 by 10.2 cms. I did contact Dr. Rosas, General surgeon transportation project manager at [facility]. His recommendation as to place NG tube to bowel decompression and start antibiotics and transfer patient down to [facility]. NG tube has been placed and also Zoysn 3.725mg IV given I have discussed patient with Hospitalist , Dr. Peter. He has agreed to accept patient. She did have 2 sets of blood cultures and also lactic acid drawn.Pt will be transferred by ALS ambulance down to [facility] under care pf Dr. Peter/ . Pt is hemodynamically stable at the time of transfer. Last Recorded V/S: Last Vital Signs Temp 98 F 08/25/18 18: Pulse 107 H 08/25/18 18:19 Resp 20 08/25/18 18:19 BP 100/66 08/25/18 18:19 Pulse Ox 95 08/25/18 18:19 - Orders/Labs/Meds Orders: Active Orders 24 hr Category Date Time Status Abdomen Pelvis wo Cont [CT] Stat Exams 08/25/18 18:32 Taken CULTURE URINE [RM] Stat Lab 08/25/18 19:34 Ordered Labs: Laboratory Tests 08/25/18 08/25/18 08/25/18 Range/Units 08:50 18:32 19:14 WBC 17.5 H D (4.0-11.0) K/uL RBC 2.93 L (3.80-5.80) M/uL Hgb 9.9 L D (11.5-16.5) g/dL Hct 29.3 L (37.0-47.0) % MCV 100 H (76-96) fL MCH 33.8 H (27.0-32.0) pg MCHC 33.8 (31.0-35.0) g/dL RDW 14.9 (11.0-16.0) % Plt Count 372 D (150-500) K/uL MPV 9.0 (6.0-10.0) fL Neut % (Auto) 84.5 H (45.0-70.0) % Lymph % (Auto) 8.3 L (20.0-40.0) % [place] % (Auto) 5.7 (3.0-10.0) % Eos % (Auto) 1.4 (1.0-5.0) % Baso % (Auto) 0.1 (0.0-0.5) % Neut # (Auto) 14.83 H (2.00-7.50) K/uL Lymph # (Auto) 1.45 L (1.50-4.00) K/uL [place] # (Auto) 1.00 H (0.20-0.80) K/uL Eos # (Auto) 0.24 (0.04-0.40) K/uL Baso # (Auto) 0.02 (0.02-0.10) K/uL Sodium 146 H (136-145) mmol/L Potassium 3.4 L D (3.5-5.1) mmol/L Chloride 111 H (98-107) mmol/L Carbon Dioxide 19.0 L D (21.0-32.0) mmol/L Anion Gap 19.4 H (5.0-15.0) mmol/L BUN 20 D (8-26) mg/dL Creatinine 1.63 H (0.55-1.02) mg/dL Est Cr Clr Drug Dosing TNP Estimated GFR (MDRD) 32 L (>60) MLS/MIN BUN/Creatinine Ratio 12.3 (6-25) Glucose 96 D (74-100) mg/dL Calcium 7.0 L (8.5-10.1) mg/dL Total Bilirubin 0.5 D (0.0-1.0) mg/dL AST 30 (15-37) U/L ALT 33 (12-78) U/L Alkaline Phosphatase 192 H (46-116) U/L Total Protein 5.8 L (6.4-8.2) g/dL Albumin 1.9 L (3.4-5.0) g/dL Globulin 3.9 (2.2-4.2) g/dL Albumin/Globulin Ratio 0.5 L (0.8-2.0) Urine Color Yellow Urine Appearance Cloudy (CLEAR) Urine pH 6.5 (5.0-8.0) Ur Specific [place] 1.020 (1.003-1.030) Urine Protein 30 H (NEGATIVE) mg/dL Urine Glucose (UA) Negative (NEGATIVE) mg/dL Urine Ketones Negative (NEGATIVE) mg/dL Urine Occult Blood Moderate H (NEGATIVE) Urine Nitrite Negative (NEGATIVE) Urine Bilirubin Small H (NEGATIVE) Urine Urobilinogen 0.2 (0.2-1.0) E.U./dL Ur Leukocyte Esterase Small H (NEGATIVE) Urine RBC 5-10 H /HPF Urine WBC 40-50 H /HPF Urine WBC Clumps Few /HPF Ur Squamous Epith Cells Few /HPF Urine Bacteria Many H /HPF Departure - Departure Time of Disposition: 09:30 Disposition: DC/Tfer to Acute Hospital 02 Condition: Fair Clinical Impression: Small bowel obstruction due to adhesions, Abscess of postoperative wound of abdominal wall - Discharge Information *PRESCRIPTION DRUG MONITORING PROGRAM REVIEWED*: Not Applicable *COPY OF PRESCRIPTION DRUG MONITORING REPORT IN PATIENT SARY: Not Applicable Referrals: PCP,None [Primary Care Provider] - Forms: ED Department Discharge - Problem List & Annotations (1) Abscess of postoperative wound of abdominal wall SNOMED Code(s): 804142183 Code(s): T81.49XA - INFECTION FOLLOWING A PROCEDURE, OTHER SURGICAL SITE, INIT Status: Acute Current Visit: Yes (2) Small bowel obstruction due to adhesions SNOMED Code(s): 537200335 Code(s): K56.50 - INTESTNL ADHESIONS, UNSP TO PARTIAL VERSUS COMPLETE OBST Status: Acute Current Visit: Yes - Problem List Review Problem List Initiated/Reviewed/Updated: Yes - My Orders Last 24 Hours: My Active Orders 08/25/18 18:32 Abdomen Pelvis wo Cont [CT] Stat 08/25/18 19:34 CULTURE URINE [RM] Stat - Assessment/Plan Last 24 Hours: My Active Orders 08/25/18 18:32 Abdomen Pelvis wo Cont [CT] Stat 08/25/18 19:34 CULTURE URINE [RM] Stat Assessment:: Small bowel obstruction with anterior abdominal wall abscess Plan: Pt has had 4 days history of abdominal pain with distension. She has not had very minimal urine output yesterday and has not had any today. There is a suprapubic mass consistent with a distended bladder. She does have hyperactive upper abdominal bowel sounds. As patient has had 4 days history of abdominal pain with distension and also pt is very poor historian, I did get Ct abdomen and pelvis done. Pt was catheterized and drained about 700cc of foul smelling high colored urine. Her white count is 17K. Her Electrolytes are stable, her creat is up at 1.6 with BUN of 20. UA does show plenty of WBC. Pt was started on Iv normal saline bolus of 500 followed by NS with KCL at 20mq at 125cc/hr.Urine culture ordered. Pt's Ct abdomen was reported as SBO , there is anterior abdominal wall inflammation with anterior abdominal wall gas containing fluid collection along the anterior abdominal wall roughly measuring 0.9 by 10.2 cms. I did contact Dr. Rosas, General surgeon transportation project manager at [facility]. His recommendation as to place NG tube to bowel decompression and start antibiotics and transfer patient down to [facility]. NG tube has been placed and also Zoysn 3.725mg IV given I have discussed patient with Hospitalist , Dr. Peter. He has agreed to accept patient. She did have 2 sets of blood cultures and also lactic acid drawn.Pt will be transferred by ALS ambulance down to [facility] under care pf Dr. Peter/ . Pt is hemodynamically stable at the time of transfer.
[2018-08-25] MEDS ORDERED: Sodium Chloride 0.9% 10 ML Syringe FLUSH PRN (19:55)
[2018-08-25] MEDS ORDERED: Sodium Chloride 0.9% 500 ML IV ONE (19:56)
[2018-08-25] MEDS ORDERED: Piperacillin/Tazobactam 3.375 GM in Sodium Chloride 0.9% 100 ML IV STA (19:57)
[2018-08-25] MEDS ORDERED: NS + KCl 20mEq/L 1,000 ML IV SCH (20:00)
[2018-08-25] MEDS ORDERED: HYDROmorphone 2 MG/ML SDV IVPUSH ONE (20:10)
[2018-08-25] MEDS ORDERED: HYDROmorphone 2 MG/ML SDV ONE (20:22)
[2018-08-25 21:20] VITALS: BP 151/88
--- NOTE | 2018-08-26 05:15 | CT ---
DATE OF SERVICE: 08/25/2018 CLINICAL DATA: Abdominal pain. UNENHANCED ABDOMEN AND PELVIC CT: Multislice acquisition through the abdomen and pelvis without IV or oral contrast was performed. Comparison is made to a prior unenhanced abdomen and pelvic CT dated 07/22/2018. There are mild atelectatic changes of the dependent portions of both lung bases. The lung bases are otherwise clear. There is diffuse fatty infiltration of the liver. No focal hepatic lesions. The gallbladder appears normal. The spleen appears normal. The pancreas is mildly atrophic, otherwise normal. The right and left adrenals appear normal. The right and left kidneys are unremarkable. No nephrocalcinosis or nephrolithiasis. No hydronephrosis or hydroureter. The patient is status post internal fixation of the right hip. This does produce beam hardening and streak artifact, obscuring adjacent structures. The bladder is fluid filled and moderately distended. Bladder outlet obstruction cannot be excluded. The patient is status post partial right hemicolectomy with an end-to-end anastomosis with the distal ileum. There are multiple gas and fluid-filled loops of small bowel throughout the abdomen and pelvis with a transition in the left mid-abdomen. There is also swirling of the mesenteric pedicle. The findings are consistent with a small bowel obstruction. There is a moderate amount of stool noted within the splenic flexure and descending colon and within the sigmoid colon and rectum. There are surgical changes in the anterior abdominal wall. There are multiple small gas collections within the anterior abdominal wall at the incision site. These are probably related to prior surgery. A gas-forming infectious process should at least be considered. No free intraperitoneal air. No adenopathy. No aortic aneurysm. IMPRESSION: Abnormal exam. See above. [id number] MTDD
== END 2018-08-25 21:30 ==
LOC: LB.ED 18:05
DX: T81.49XA Infection following a procedure, other surgical site, initial encounter (principal); L02.211 Cutaneous abscess of abdominal wall; K56.609 Unspecified intestinal obstruction, unspecified as to partial versus complete obstruction; F41.9 Anxiety disorder, unspecified; F32.9 Major depressive disorder, single episode, unspecified; I10 Essential (primary) hypertension; J45.909 Unspecified asthma, uncomplicated; K21.9 Gastro-esophageal reflux disease without esophagitis; Z79.899 Other long term (current) drug therapy; Z91.09 Other allergy status, other than to drugs and biological substances; Z88.8 Allergy status to other drugs, medicaments and biological substances
CPT/HCPCS: 36415; 51702; 74176; 80053; 81001; 83605; 85025; 87040; 87086; 87088; 87186; 96374; 99285; 99285-25; J1170; J2543; J3480; J7030; J7040

== ENCOUNTER 2018-09-09 13:38 | Inpatient (IN) | payer MEDICARE, BC, OTHER ==
[2018-09-09] MEDS ORDERED: DIPHENHYDRAMINE HCL TOP PRN (17:22)
[2018-09-09] MEDS ORDERED: [UNRECOGNIZED DRUG - OTHER] TOP PRN (17:22)
[2018-09-09] MEDS ORDERED: ZINC ACET TOP PRN (17:22)
[2018-09-09] MEDS ORDERED: Acetaminophen 500 MG Tab PO PRN (17:28)
[2018-09-09] MEDS ORDERED: Amitriptyline 25 MG Tab PO PRN ×2 (17:29→23:23)
--- NOTE | 2018-09-09 17:38 | PCM.HP ---
H&P History of Present Illness - General Date of Service: 09/09/18 Admit Problem/Dx: Admission Diagnosis/Problem Admission Diagnosis/Problem Weakness Source of Information: Patient History Limitations: Reports: No Limitations - History of Present Illness Initial Comments - Free Text/Narative: This is a 63yo F here in swing bed from 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 She states she is feeling well and denies any concerns or issues. She does request pain pills at this time. She acquired C. diff at [place] and was started on Vancomycin. They noted some concerns of skin irritation and started her on Keflex as well. She has improved greatly from presentation and post surgery. Location: Reports: Abdomen Quality: Reports: Ache Severity: Mild Improves with: Reports: None Worsens with: Reports: None Associated Symptoms: Reports: Weakness Lower Back Pain Score (Numeric/FACES): 3 Abdominal Pain Score (Numeric/FACES): 5 - Related Data Allergies/Adverse Reactions: Allergies Allergy/AdvReac Type Severity Reaction Status Date / Time adhesive tape Allergy Intermediate itching Verified 09/09/18 19:05 rash adhesive Allergy itching Verified 09/09/18 19:05 rash prednisolone Allergy Nausea Verified 09/09/18 19:05 Home Medications: Home Meds Levothyroxine [Synthroid] 50 mcg PO ACBREAKFAST 03/04/13 [History] Albuterol Sulfate [Proair Respiclick] 1 - 2 inh IH Q4H PRN 09/13/15 [History] Methocarbamol 500 mg PO QID PRN 09/13/15 [History] Potassium Chloride 40 meq PO DAILY 09/13/15 [History] Doxepin [SINEquan] 50 mg PO TID PRN 08/25/18 [History] Esomeprazole [NexIUM] 40 mg PO ACBREAKFAST 08/25/18 [History] Folic Acid 1 mg PO DAILY 08/25/18 [History] Magnesium Oxide 400 mg PO BID 08/25/18 [History] Multivit-Min/FA/Lycopene/Lut [Certavite Sr-Antioxidant Tab] 1 tab PO DAILY 08/25 [History] Thiamine HCl [Vitamin B-1] 1 tab PO DAILY 08/25/18 [History] buPROPion [buPROPion XL] 150 mg PO DAILY 08/25/18 [History] diphenhydrAMINE HCl/Zinc Acet [Benadryl Itch Stopping Crm] 1 applic TOP TID PRN 08/25/18 [History] Acetaminophen [Acetaminophen Extra Strength] 500 mg PO Q4HR PRN 09/10/18 [ History] Acetaminophen/HYDROcodone [[place] 325-5 MG] 1 tab PO Q6H PRN 09/10/18 [History] Amitriptyline [Elavil] 25 - 75 mg PO BEDTIME PRN 09/10/18 [History] Cephalexin [Keflex] 500 mg PO BID 09/10/18 [History] DULoxetine [Cymbalta] 60 mg PO DAILY 09/10/18 [History] Ferrous Sulfate 325 mg PO DAILY 09/10/18 [History] Vancomycin HCl 125 mg PO QID 09/10/18 [History] Past Medical History HEENT History: Reports: Impaired Vision Cardiovascular History: Reports: None, Hypertension Respiratory History: Reports: Asthma Gastrointestinal History: Reports: GERD, Other (See Below) Other Gastrointestinal History: constipation Genitourinary History: Reports: Acute Renal Failure Other Genitourinary History: Son stated he was worried about her kidneys 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 parity: 2, gravity: 2 Musculoskeletal History: Reports: Fracture, Osteoarthritis Other Musculoskeletal History: arthritis especially in shoulders, severe fx with plate rt femur, repaired several times shoulders injected with steriods fracture right lower leg 2 days ago fell Psychiatric History: Reports: Addiction, Anxiety, Depression Other Psychiatric History: please note: patient states she stopped smoking approx 8 months ago Endocrine/Metabolic History: Reports: Hypothyroidism, Other (See Below), Osteoporosis, Osteopenia Other Endocrine/Metabolic History: hx of osteomylitis Immunologic History: Reports: None Oncologic (Cancer) History: Reports: None Dermatologic History: Reports: Other (See Below) Other Dermatologic History: Has some allergies whch cause hives, not sure of the source - Infectious Disease History Infectious Disease History: Reports: Chicken Pox, Measles, Mumps - Past Surgical History HEENT Surgical History: Reports: Other (See Below) GI Surgical History: Reports: Hernia, Abdominal Musculoskeletal Surgical History: Reports: Other (See Below) - History Comment History Comment: Pt has a drinking problem recently drawn to my attention. Is also on narcotics for the fracture of her right upper leg, osteomyelitis also - [facility] Social & Family History - Family History Family Medical History: Noncontributory - Caffeine Use Caffeine Use: Reports: Coffee H&P Review of Systems - Review of Systems: Review Of Systems: ROS reveals no pertinent complaints other than HPI. Exam - Exam Exam: See Below - Exam Quality Assessment: Supplemental Oxygen General: Alert, Oriented, Cooperative HEENT: PERRLA, Conjunctiva Clear, EACs Clear, EOMI, Hearing Intact Neck: Supple, Trachea Midline Lungs: Clear to Auscultation, Normal Respiratory Effort Cardiovascular: Regular Rate, Regular Rhythm GI/Abdominal Exam: Other (drainage tube in place, jayce appear healing well, ) Back Exam: Normal Inspection Extremities: Normal Inspection Skin: Ecchymosis, Wound, Incision Neuro Extensive - Mental Status: Alert, Oriented x3, Normal Mood/Affect, Normal Cognition, Memory Intact - Problem List (1) Generalized weakness SNOMED Code(s): 70413131 ICD Code: R53.1 - WEAKNESS Status: Acute Priority: High Current Visit: Yes (2) Clostridium difficile diarrhea SNOMED Code(s): 6111613339981 ICD Code: A04.72 - ENTEROCOLITIS D/T CLOSTRIDIUM DIFFICILE, NOT SPCF RECUR Status: Acute Priority: High Current Visit: Yes (3) Cellulitis SNOMED Code(s): 565975162 ICD Code: L03.90 - CELLULITIS, UNSPECIFIED Status: Acute Priority: High Current Visit: Yes (4) Post-op pain SNOMED Code(s): 397472815 ICD Code: G89.18 - OTHER ACUTE POSTPROCEDURAL PAIN Status: Acute Priority : High Current Visit: Yes (5) Encounter for management of wound VAC SNOMED Code(s): 516954660 ICD Code: IBD3059 - Status: Acute Priority: High Current Visit: Yes (6) Encounter for postoperative wound care SNOMED Code(s): 841633749, 982990328, 662743445 ICD Code: Z48.89 - ENCOUNTER FOR OTHER SPECIFIED SURGICAL AFTERCARE Status : Acute Priority: High Current Visit: Yes Problem List Initiated/Reviewed/Updated: Yes Orders Last 24hrs: Active Orders 24 hr Category Date Time Status Patient Status [ADT] Routine ADT 09/09/18 14:09 Active Consult to Family Reunification Specialist [CONS] Routine Cons 09/09/18 14:09 Active Consult to Home Health [CONS] Routine Cons 09/09/18 14:09 Active Consult to Infection Prevention [CONS] Routine Cons 09/09/18 14:09 Active Consult to Wound Care Services [CONS] Routine Cons 09/09/18 14:09 Active OT Evaluation and Treatment [CONS] Routine Cons 09/09/18 14:09 Active PT Evaluation and Treatment [CONS] Routine Cons 09/09/18 14:09 Active Acetaminophen [Tylenol Extra Strength] Med 09/09/18 17:28 Ordered 500 mg PO Q4H PRN Acetaminophen/HYDROcodone [[place] 325-10 MG] Med 09/09/18 17:37 Ordered 1 tab PO Q6H PRN Albuterol Sulfate [Proair Respiclick] Med 09/09/18 17:22 Ordered 2 inh IH Q4H PRN Amitriptyline [Elavil] Med 09/09/18 17:29 Ordered 25 mg PO BEDTIME PRN Bacitracin [Bacitracin Oint 1 GM] Med 09/09/18 17:30 Once 1 dose TOP ONETIME ONE DULoxetine [Cymbalta] Med 09/10/18 08:00 Ordered 60 mg PO DAILY Doxepin [SINEquan] Med 09/09/18 20:00 Ordered 50 mg PO BEDTIME Esomeprazole [NexIUM] Med 09/10/18 08:00 Ordered 40 mg PO DAILY Ferrous Sulfate Med 09/10/18 07:00 Ordered 325 mg PO WITHBREAKFAST Folic Acid Med 09/10/18 08:00 Ordered 1 mg PO DAILY Levothyroxine [Synthroid] Med 09/10/18 08:00 Ordered 50 mcg PO DAILY Magnesium Oxide Med 09/10/18 08:00 Ordered 400 mg PO DAILY Methocarbamol [Robaxin] Med 09/09/18 20:00 Ordered 500 mg PO TID Multivit-Min/FA/Lycopene/Lut [Certavite Sr-Antioxidant Med 09/10/18 08:00 Ordered Tab] 1 tab PO DAILY Potassium Chloride [Potassium Chloride] Med 09/10/18 08:00 Ordered 20 meq PO DAILY Pramoxine HCl/Benzyl Alcohol [Itch-X] Med 09/10/18 08:00 Ordered 1 applic TOP DAILY Thiamine [Vitamin B-1] Med 09/10/18 08:00 Ordered 100 mg PO DAILY Vancomycin Med 09/09/18 20:00 Active 0.125 gm PO QID buPROPion [Wellbutrin XL] Med 09/10/18 08:00 Ordered 150 mg PO DAILY cephALEXin [Keflex] Med 09/09/18 20:00 Ordered 500 mg PO TID diphenhydrAMINE HCl/Zinc Acet [Benadryl Itch Stopping Med 09/09/18 17:22 Ordered Crm] 1 applic TOP BID PRN Medication Orders Acetaminophen (Tylenol Extra Strength) 500 mg PO Q4H PRN PRN Reason: Pain Hydrocodone Bitart/Acetaminophen ([place] 325-10 Mg) 1 tab PO Q6H PRN PRN Reason: Pain Amitriptyline HCl (Elavil) 25 mg PO BEDTIME PRN PRN Reason: Insomnia Bacitracin (Bacitracin Oint 1 Gm) 1 dose TOP BID DANA Bupropion HCl (Wellbutrin Xl) 150 mg PO DAILY DANA Cephalexin (Keflex) 500 mg PO TID DANA Duloxetine HCl (Cymbalta) 60 mg PO DAILY [facility] Esomeprazole Magnesium (Nexium) 40 mg PO DAILY [facility] Ferrous Sulfate (Ferrous Sulfate) 325 mg PO WITHBREAKFAST [facility] Folic Acid (Folic Acid) 1 mg PO DAILY [facility] Levothyroxine Sodium (Synthroid) 50 mcg PO DAILY [facility] Magnesium Oxide (Magnesium Oxide) 400 mg PO DAILY [facility] Methocarbamol (Robaxin) 500 mg PO TID [facility] Non-Formulary Medication (Albuterol Sulfate [Proair Respiclick]) 2 inh IH Q4H PRN PRN Reason: shortness of breath Non-Formulary Medication (Diphenhydramine Hcl/Zinc Acet [Benadryl Itch Stopping Crm]) 1 applic TOP BID PRN PRN Reason: Itching Non-Formulary Medication (Doxepin [Sinequan]) 50 mg PO BEDTIME DANA Non-Formulary Medication (Multivit-Min/Fa/Lycopene/Lut [Certavite Sr- Antioxidant Tab]) 1 tab PO DAILY DANA Non-Formulary Medication (Potassium Chloride [Potassium Chloride]) 20 meq PO DAILY DANA Non-Formulary Medication (Pramoxine Hcl/Benzyl Alcohol [Itch-X]) 1 applic TOP DAILY DANA Thiamine HCl (Vitamin B-1) 100 mg PO DAILY DANA Vancomycin HCl (Vancomycin) 0.125 gm PO QID DANA Stop: 09/20/18 23:59 Assessment/Plan Comment:: Patient admitted for rehabilitation and wound care. Patient currently on a wound vac. She states her pain is under control. We will have wound care f/u with wound vac and wound dressing and checks. PT/OT referral for strengthening and ADLs. Meds reconciled. Patient agrees with plan of care. Continue current oral vancomycin treatment for another 12 days. Continue keflex for 8 more days. Contact precautions.
[2018-09-09] MEDS ORDERED: Methocarbamol 500 MG Tab PO PRN (20:00)
[2018-09-09] MEDS ORDERED: DOXEPIN 50 MG PO PRN (20:00)
[2018-09-09] MEDS ORDERED: Cephalexin 500 MG Cap PO SCH (20:00)
[2018-09-09] MEDS: Vancomycin 1 GM SDV PO SCH (21:52)
[2018-09-09] MEDS: Bacitracin Oint 1 GM U/D Packet TOP SCH (21:57)
[2018-09-09] MEDS ORDERED: Albuterol 8 GM Inhaler INH PRN (23:07)
[2018-09-10] MEDS ORDERED: Ferrous Sulfate 325 MG Tab PO SCH (07:00)
[2018-09-10] MEDS ORDERED: Thiamine 100 MG Tab PO SCH (08:00)
[2018-09-10] MEDS ORDERED: Esomeprazole 40 MG Cap PO SCH (08:00)
[2018-09-10] MEDS ORDERED: Levothyroxine 50 MCG Tab PO SCH (08:00)
[2018-09-10] MEDS: Magnesium Oxide 400 MG Tab PO SCH ×3 (08:15→19:58)
[2018-09-10] MEDS: DULoxetine 60 MG Cap PO SCH (09:25)
[2018-09-10] MEDS: Folic Acid 1 MG Tab PO SCH (09:26)
[2018-09-10] MEDS: Potassium Chloride 20 MEQ Tab.ER PO SCH (09:26)
[2018-09-10] MEDS: Cephalexin 500 MG Cap PO SCH ×2 (09:26→19:59)
[2018-09-10] MEDS: Multivitamins with Iron/Calcium/Folic Acid/Minerals Tab PO SCH (09:29)
[2018-09-10] MEDS: Thiamine 100 MG Tab PO SCH (09:29)
[2018-09-10] MEDS: buPROPion 150 MG Tab.ER PO SCH (09:29)
[2018-09-10] MEDS: Acetaminophen/HYDROcodone 325-10 MG Tab PO PRN ×2 (09:31→22:45)
[2018-09-10] MEDS: Vancomycin 1 GM SDV PO SCH ×4 (09:41→20:00)
[2018-09-10] MEDS: Tuberculin, PPD 5 Units/0.1 ML 1 ML MDV IDERM ONE ×2 (09:48→15:00)
[2018-09-10] MEDS ORDERED: Amitriptyline 25 MG Tab PO PRN (10:25)
[2018-09-10] MEDS ORDERED: Hydrocortisone Acetate 1% Crm 30 GM Tube TOP PRN (10:26)
[2018-09-10] MEDS: Bacitracin Oint 1 GM U/D Packet TOP SCH ×2 (11:00→19:58)
[2018-09-10] MEDS: [UNRECOGNIZED DRUG - OTHER] TOP SCH (15:28)
[2018-09-10] MEDS: PRAMOXINE TOP SCH (15:28)
[2018-09-10] MEDS ORDERED: hydrOXYzine HCl 25 MG Tab PO PRN (16:15)
[2018-09-11] MEDS: Levothyroxine 50 MCG Tab PO SCH (06:39)
[2018-09-11] MEDS: Esomeprazole 40 MG Cap PO SCH (06:40)
[2018-09-11] MEDS: Vancomycin 1 GM SDV PO SCH ×4 (07:21→20:08)
[2018-09-11] MEDS: Acetaminophen/HYDROcodone 325-10 MG Tab PO PRN ×3 (07:22→21:40)
[2018-09-11] MEDS: DULoxetine 60 MG Cap PO SCH (07:23)
[2018-09-11] MEDS: buPROPion 150 MG Tab.ER PO SCH (07:23)
[2018-09-11] MEDS: Cephalexin 500 MG Cap PO SCH ×2 (07:23→20:07)
[2018-09-11] MEDS: Folic Acid 1 MG Tab PO SCH (07:24)
[2018-09-11] MEDS: Multivitamins with Iron/Calcium/Folic Acid/Minerals Tab PO SCH (07:24)
[2018-09-11] MEDS: Potassium Chloride 20 MEQ Tab.ER PO SCH (07:24)
[2018-09-11] MEDS: Ferrous Sulfate 325 MG Tab PO SCH (07:24)
[2018-09-11] MEDS: Thiamine 100 MG Tab PO SCH (07:24)
[2018-09-11] MEDS: Bacitracin Oint 1 GM U/D Packet TOP SCH ×2 (07:24→20:08)
[2018-09-11] MEDS: Magnesium Oxide 400 MG Tab PO SCH ×2 (07:24→20:07)
[2018-09-11] MEDS: PRAMOXINE TOP SCH (07:26)
[2018-09-11] MEDS: [UNRECOGNIZED DRUG - OTHER] TOP SCH (07:26)
[2018-09-11] MEDS ORDERED: Doxazosin 2 MG Tab PO SCH (08:00)
[2018-09-11] MEDS: Fluconazole 150 MG Tab PO SCH (13:49)
[2018-09-12] MEDS: Esomeprazole 40 MG Cap PO SCH (06:41)
[2018-09-12] MEDS: Levothyroxine 50 MCG Tab PO SCH (06:42)
[2018-09-12] MEDS: Potassium Chloride 20 MEQ Tab.ER PO SCH (07:35)
[2018-09-12] MEDS: DULoxetine 60 MG Cap PO SCH (07:35)
[2018-09-12] MEDS: Multivitamins with Iron/Calcium/Folic Acid/Minerals Tab PO SCH (07:35)
[2018-09-12] MEDS: Ferrous Sulfate 325 MG Tab PO SCH (07:35)
[2018-09-12] MEDS: Vancomycin 1 GM SDV PO SCH ×4 (07:35→20:23)
[2018-09-12] MEDS: Folic Acid 1 MG Tab PO SCH (07:36)
[2018-09-12] MEDS: Thiamine 100 MG Tab PO SCH (07:36)
[2018-09-12] MEDS: Magnesium Oxide 400 MG Tab PO SCH ×2 (07:36→21:20)
[2018-09-12] MEDS: buPROPion 150 MG Tab.ER PO SCH (07:36)
[2018-09-12] MEDS: Fluconazole 150 MG Tab PO SCH (07:36)
[2018-09-12] MEDS: PRAMOXINE TOP SCH (07:37)
[2018-09-12] MEDS: Bacitracin Oint 1 GM U/D Packet TOP SCH ×2 (07:37→20:23)
[2018-09-12] MEDS: [UNRECOGNIZED DRUG - OTHER] TOP SCH (07:37)
[2018-09-12] MEDS: Acetaminophen/HYDROcodone 325-10 MG Tab PO PRN ×2 (07:43→18:06)
[2018-09-13] MEDS: Acetaminophen/HYDROcodone 325-10 MG Tab PO PRN ×2 (00:17→12:24)
[2018-09-13] MEDS: Esomeprazole 40 MG Cap PO SCH (08:45)
[2018-09-13] MEDS: Levothyroxine 50 MCG Tab PO SCH (08:45)
[2018-09-13] MEDS: DULoxetine 60 MG Cap PO SCH (08:46)
[2018-09-13] MEDS: Bacitracin Oint 1 GM U/D Packet TOP SCH (08:46)
[2018-09-13] MEDS: Folic Acid 1 MG Tab PO SCH (08:47)
[2018-09-13] MEDS: Ferrous Sulfate 325 MG Tab PO SCH (08:47)
[2018-09-13] MEDS: Potassium Chloride 20 MEQ Tab.ER PO SCH (08:48)
[2018-09-13] MEDS ORDERED: Potassium Chloride 20 MEQ Tab.ER ONE (08:50)
[2018-09-13] MEDS ORDERED: Fluconazole 150 MG Tab ONE (08:50)
[2018-09-13] MEDS: Multivitamins with Iron/Calcium/Folic Acid/Minerals Tab PO SCH (08:51)
[2018-09-13] MEDS: Fluconazole 150 MG Tab PO SCH (08:51)
[2018-09-13] MEDS: Magnesium Oxide 400 MG Tab PO SCH (08:51)
[2018-09-13] MEDS: buPROPion 150 MG Tab.ER PO SCH (08:52)
[2018-09-13] MEDS: Thiamine 100 MG Tab PO SCH (08:52)
[2018-09-13] MEDS: Vancomycin 1 GM SDV PO SCH ×2 (08:52→12:26)
--- NOTE | 2018-09-13 11:30 | PCM.DCSUM1 ---
Discharge Summary - Discharge Data Discharge Date: 09/13/18 Discharge Disposition: Home, Self-Care 01 Condition: Good - Discharge Diagnosis/Problem(s) (1) Generalized weakness SNOMED Code(s): 40528170 ICD Code: R53.1 - WEAKNESS Status: Acute Priority: High (2) Clostridium difficile diarrhea SNOMED Code(s): 1938313976122 ICD Code: A04.72 - ENTEROCOLITIS D/T CLOSTRIDIUM DIFFICILE, NOT SPCF RECUR Status: Acute Priority: High (3) Cellulitis SNOMED Code(s): 372140350 ICD Code: L03.90 - CELLULITIS, UNSPECIFIED Status: Acute Priority: High (4) Post-op pain SNOMED Code(s): 330936504 ICD Code: G89.18 - OTHER ACUTE POSTPROCEDURAL PAIN Status: Acute Priority : High (5) Encounter for management of wound VAC SNOMED Code(s): 576398605 ICD Code: BYY8174 - Status: Acute Priority: High (6) Encounter for postoperative wound care SNOMED Code(s): 798552137, 779425427, 496561734 ICD Code: Z48.89 - ENCOUNTER FOR OTHER SPECIFIED SURGICAL AFTERCARE Status : Acute Priority: High - Patient Summary/Data Consults: Consultations 09/09/18 14:09 Consult to Elementary Assistant Principal [CONS] Routine Comment: Physician Instructions: Quantity: Consult to Home Health [CONS] Routine Comment: Physician Instructions: Consult to Infection Prevention [CONS] Routine Comment: Physician Instructions: Consult to Wound Care Services [CONS] Routine Comment: Physician Instructions: OT Evaluation and Treatment [CONS] Routine Please Evaluate and Treat. OT Reason for Consult: ADL's This query below is only for informational purposes and is not editable. Admission Diagnosis/Problem: Weakness PT Evaluation and Treatment [CONS] Routine Please Evaluate and Treat. PT Reason for Consult: Wound Care Special Instructions: Wound vac This query below is only for informational purposes and is not editable. Admission Diagnosis/Problem: Weakness - Patient Instructions Diet: Usual Diet as Tolerated Activity: As Tolerated Driving: Do Not Drive - Discharge Plan Prescriptions/Med Rec: Vancomycin HCl [Firvanq] 50 mg PO QID #1 soln.recon Home Medications: Home Meds Levothyroxine [Synthroid] 50 mcg PO ACBREAKFAST 03/04/13 [History] Albuterol Sulfate [Proair Respiclick] 1 - 2 inh IH Q4H PRN 09/13/15 [History] Methocarbamol 500 mg PO QID PRN 09/13/15 [History] Potassium Chloride 40 meq PO DAILY 09/13/15 [History] Doxepin [SINEquan] 50 mg PO TID PRN 08/25/18 [History] Esomeprazole [NexIUM] 40 mg PO ACBREAKFAST 08/25/18 [History] Folic Acid 1 mg PO DAILY 08/25/18 [History] Magnesium Oxide 400 mg PO BID 08/25/18 [History] Multivit-Min/FA/Lycopene/Lut [Certavite Sr-Antioxidant Tab] 1 tab PO DAILY 08/25 [History] Thiamine HCl [Vitamin B-1] 1 tab PO DAILY 08/25/18 [History] buPROPion [buPROPion XL] 150 mg PO DAILY 08/25/18 [History] Acetaminophen [Acetaminophen Extra Strength] 500 mg PO Q4HR PRN 09/10/18 [ History] Amitriptyline [Elavil] 25 - 75 mg PO BEDTIME PRN 09/10/18 [History] DULoxetine [Cymbalta] 60 mg PO DAILY 09/10/18 [History] Ferrous Sulfate 325 mg PO DAILY 09/10/18 [History] Vancomycin HCl [Firvanq] 50 mg PO QID #1 soln.recon 09/12/18 [Rx] Acetaminophen/HYDROcodone [[place] 325-10 MG] 1 tab PO Q6H PRN tablet 09/13/18 [ Rx] Bacitracin [Bacitracin Oint 1 GM] 1 dose TOP BID packet 09/13/18 [Rx] Fluconazole [Diflucan] 150 mg PO DAILY tablet 09/13/18 [Rx] Hydrocortisone Acetate [Hydrocortisone Acetate 1% Crm] 1 gm TOP TID PRN tube [Rx] Pramoxine HCl/Benzyl Alcohol [Itch-X] 1 applic TOP DAILY 09/13/18 [Rx] Patient Handouts: Clostridium Difficile Infection, [id number], Negative Pressure Wound Therapy, Vancomycin oral solution, Peripheral Edema - Discharge Summary/Plan Comment DC Time >30 min.: No Discharge Summary/Plan Comment: Counseled on continued f/u in clinic. Discussed care and management and rtc as needed. Patient meds reconciled and discussed with patient. F/u as routine. - Patient Data Vitals - Most Recent: Last Vital Signs Temp 37.1 C 09/12/18 20:00 Pulse 80 09/12/18 20:00 Resp 14 09/12/18 20:00 BP 98/56 L 09/12/18 20:00 Pulse Ox 97 09/12/18 20:00 Weight - Most Recent: 60.781 kg Med Orders - Current: Current Medications Acetaminophen (Tylenol Extra Strength) 500 mg PO Q4H PRN PRN Reason: Pain Hydrocodone Bitart/Acetaminophen ([place] 325-10 Mg) 1 tab PO Q6H PRN PRN Reason: Pain Last Admin: 09/13/18 00:17 Dose: 1 tab Albuterol (Ventolin Hfa) 0 gm INH Q4H PRN PRN Reason: Shortness of Breath Amitriptyline HCl (Elavil) 25 mg PO BEDTIME PRN PRN Reason: Insomnia Bacitracin (Bacitracin Oint 1 Gm) 1 dose TOP BID [facility] Last Admin: 09/13/18 08:46 Dose: Not Given Bupropion HCl (Wellbutrin Xl) 150 mg PO DAILY [facility] Last Admin: 09/13/18 08:52 Dose: 150 mg Duloxetine HCl (Cymbalta) 60 mg PO DAILY [facility] Last Admin: 09/13/18 08:46 Dose: 60 mg Esomeprazole Magnesium (Nexium) 40 mg PO ACBREAKFAST [facility] Last Admin: 09/13/18 08:45 Dose: 40 mg Ferrous Sulfate (Ferrous Sulfate) 325 mg PO DAILY [facility] Last Admin: 09/13/18 08:47 Dose: 325 mg Fluconazole (Diflucan) 150 mg PO DAILY [facility] Stop: 09/14/18 23:59 Last Admin: 09/13/18 08:51 Dose: 150 mg Folic Acid (Folic Acid) 1 mg PO DAILY [facility] Last Admin: 09/13/18 08:47 Dose: 1 mg Hydrocortisone Acetate (Hydrocortisone Acetate 1% Crm) 1 gm TOP TID PRN PRN Reason: ITCHING Hydroxyzine HCl (Atarax) 25 mg PO TID PRN PRN Reason: ITCHING Levothyroxine Sodium (Synthroid) 50 mcg PO ACBREAKFAST [facility] Last Admin: 09/13/18 08:45 Dose: 50 mcg Magnesium Oxide (Magnesium Oxide) 400 mg PO BID [facility] Last Admin: 09/13/18 08:51 Dose: 400 mg Methocarbamol (Robaxin) 500 mg PO QID PRN PRN Reason: Muscle Spasm Multivitamins/Minerals (Thera M Plus) 1 tab PO DAILY [facility] Last Admin: 09/13/18 08:51 Dose: 1 tab Non-Formulary Medication (Pramoxine Hcl/Benzyl Alcohol [Itch-X]) 1 applic TOP DAILY [facility] Last Admin: 09/12/18 07:37 Dose: 1 applic Potassium Chloride (Klor-Con M20) 40 meq PO DAILY [facility] Last Admin: 09/13/18 08:48 Dose: 40 meq Thiamine HCl (Vitamin B-1) 100 mg PO DAILY [facility] Last Admin: 09/13/18 08:52 Dose: 100 mg Vancomycin HCl (Vancomycin) 0.125 gm PO QID [facility] Stop: 09/22/18 20:01 Last Admin: 09/13/18 08:52 Dose: 0.125 gm Discontinued Medications Amitriptyline HCl (Elavil) 25 mg PO BEDTIME PRN PRN Reason: Insomnia Amitriptyline HCl (Elavil) 0 mg PO BEDTIME PRN PRN Reason: Insomnia Cephalexin (Keflex) 500 mg PO TID [facility] Last Admin: 09/09/18 21:58 Dose: 500 mg Cephalexin (Keflex) 500 mg PO BID [facility] Stop: 09/11/18 20:01 Last Admin: 09/11/18 20:07 Dose: 500 mg Esomeprazole Magnesium (Nexium) 40 mg PO DAILY [facility] Last Admin: 09/10/18 09:27 Dose: 40 mg Ferrous Sulfate (Ferrous Sulfate) 325 mg PO WITHBREAKFAST [facility] Last Admin: 09/10/18 09:28 Dose: 325 mg Fluconazole (Diflucan) Confirm Administered Dose 150 mg .ROUTE .STK-MED ONE Stop: 09/13/18 08:51 Levothyroxine Sodium (Synthroid) 50 mcg PO DAILY [facility] Last Admin: 09/10/18 09:33 Dose: 50 mcg Potassium Chloride (Klor-Con M20) Confirm Administered Dose 20 meq .ROUTE .STK- MED ONE Stop: 09/13/18 08:51 Tuberculin PPD (Aplisol) 5 unit IDERM ONETIME ONE Stop: 09/09/18 14:10 Last Admin: 09/10/18 15:00 Dose: Not Given
[2018-09-13 16:24] VITALS: BP 137/110
== END 2018-09-13 14:10 | disposition home or self-care (01) | DRG 948 ==
LOC: LB.MS 13:59 → UNDOADMIN 13:59 → LB.MS 18:25
PROVIDERS: ADMIT Family Medicine; ATTEND Family Medicine
DX: R53.1 Weakness (principal); A04.72 Enterocolitis due to Clostridium difficile, not specified as recurrent; L03.90 Cellulitis, unspecified; G89.18 Other acute postprocedural pain; Z48.89 Encounter for other specified surgical aftercare; I10 Essential (primary) hypertension; H54.7 Unspecified visual loss; J45.909 Unspecified asthma, uncomplicated; K21.9 Gastro-esophageal reflux disease without esophagitis; K59.00 Constipation, unspecified; M19.90 Unspecified osteoarthritis, unspecified site; M81.0 Age-related osteoporosis without current pathological fracture; E03.9 Hypothyroidism, unspecified; F32.9 Major depressive disorder, single episode, unspecified; F41.9 Anxiety disorder, unspecified; Z87.891 Personal history of nicotine dependence; Z72.89 Other problems related to lifestyle; Z88.8 Allergy status to other drugs, medicaments and biological substances; Z91.048 Other nonmedicinal substance allergy status
CPT/HCPCS: 86580; 97110-GP; 97116-GP; 97161-GP; 97165-GO; 97530-GO; 97530-GP; 97535-GO; 97605-GP; A9270-GY; J3370

== ENCOUNTER 2018-12-23 16:10 | Emergency (ER) | payer MEDICARE, BC, OTHER ==
[2018-12-23 17:30] VITALS: BP 96/67; PULSE 82
[2018-12-23] MEDS ORDERED: Sodium Chloride 0.9% with KCl 1,000 ML IV SCH (18:15)
--- NOTE | 2018-12-23 19:32 | EDM.PDOC ---
ED HPI GENERAL MEDICAL PROBLEM - General Chief Complaint: General Stated Complaint: POSSIBLE STROKE Time Seen by Provider: 12/23/18 16:40 Source of Information: Reports: Patient, Family History Limitations: Reports: No Limitations - History of Present Illness INITIAL COMMENTS - FREE TEXT/NARRATIVE: This is a 63yo F here for left sided weakness and some right sided weakness. She states her symptoms began a few days ago and progressed. She denies any other health concerns or complaints. Her son is with her and does note her symptoms have progressed and worsened the past few days. Onset: Gradual Duration: Day(s):, Getting Worse Location: Reports: Upper Extremity, Left, Upper Extremity, Right, Lower Extremity, Left, Lower Extremity, Right Severity: Moderate Improves with: Reports: None Worsens with: Reports: None Associated Symptoms: Reports: Weakness Generalized Pain Score (Numeric/FACES): 8 - Related Data Allergies Allergy/AdvReac Type Severity Reaction Status Date / Time adhesive tape Allergy Intermediate itching Verified 09/09/18 19:05 rash adhesive Allergy itching Verified 09/09/18 19:05 rash prednisolone Allergy Nausea Verified 09/09/18 19:05 Home Meds: Home Meds Levothyroxine [Synthroid] 50 mcg PO ACBREAKFAST 03/04/13 [History] Albuterol Sulfate [Proair Respiclick] 1 - 2 inh IH Q4H PRN 09/13/15 [History] Methocarbamol 500 mg PO QID PRN 09/13/15 [History] Potassium Chloride 40 meq PO DAILY 09/13/15 [History] Doxepin [SINEquan] 50 mg PO TID PRN 08/25/18 [History] Esomeprazole [NexIUM] 40 mg PO ACBREAKFAST 08/25/18 [History] Folic Acid 1 mg PO DAILY 08/25/18 [History] Magnesium Oxide 400 mg PO BID 08/25/18 [History] Multivit-Min/FA/Lycopene/Lut [Certavite Sr-Antioxidant Tab] 1 tab PO DAILY 08/25 [History] Thiamine HCl [Vitamin B-1] 1 tab PO DAILY 08/25/18 [History] buPROPion [buPROPion XL] 150 mg PO DAILY 08/25/18 [History] Acetaminophen [Acetaminophen Extra Strength] 500 mg PO Q4HR PRN 09/10/18 [ History] Amitriptyline [Elavil] 25 - 75 mg PO BEDTIME PRN 09/10/18 [History] DULoxetine [Cymbalta] 60 mg PO DAILY 09/10/18 [History] Ferrous Sulfate 325 mg PO DAILY 09/10/18 [History] Acetaminophen/HYDROcodone [[place] 325-10 MG] 1 tab PO Q6H PRN tablet 09/13/18 [ Rx] Bacitracin [Bacitracin Oint 1 GM] 1 dose TOP BID packet 09/13/18 [Rx] Fluconazole [Diflucan] 150 mg PO DAILY tablet 09/13/18 [Rx] Hydrocortisone Acetate [Hydrocortisone Acetate 1% Crm] 1 gm TOP TID PRN tube [Rx] Pramoxine HCl/Benzyl Alcohol [Itch-X] 1 applic TOP DAILY 09/13/18 [Rx] Past Medical History HEENT History: Reports: Impaired Vision Cardiovascular History: Reports: None, Hypertension Respiratory History: Reports: Asthma Gastrointestinal History: Reports: GERD, Other (See Below) Other Gastrointestinal History: constipation Genitourinary History: Reports: Acute Renal Failure Other Genitourinary History: Son stated he was worried about her kidneys MARKETING SYSTEMS ANALYST 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 parity: 2, gravity: 2 Musculoskeletal History: Reports: Fracture, Osteoarthritis Other Musculoskeletal History: arthritis especially in shoulders, severe fx with plate rt femur, repaired several times shoulders injected with steriods fracture right lower leg 2 days ago fell Psychiatric History: Reports: Addiction, Anxiety, Depression Other Psychiatric History: please note: patient states she stopped smoking approx 8 months ago Endocrine/Metabolic History: Reports: Hypothyroidism, Other (See Below), Osteoporosis, Osteopenia Other Endocrine/Metabolic History: hx of osteomylitis Immunologic History: Reports: None Oncologic (Cancer) History: Reports: None Dermatologic History: Reports: Other (See Below) Other Dermatologic History: Has some allergies whch cause hives, not sure of the source - Infectious Disease History Infectious Disease History: Reports: Chicken Pox, Measles, Mumps - Past Surgical History HEENT Surgical History: Reports: Other (See Below) GI Surgical History: Reports: Hernia, Abdominal Other Neurological Surgeries/Procedures: B LEs: no sensation changes Musculoskeletal Surgical History: Reports: Other (See Below) - History Comment History Comment: Pt has a drinking problem recently drawn to my attention. Is also on narcotics for the fracture of her right upper leg, osteomyelitis also - [facility] Social & Family History - Family History Family Medical History: Noncontributory - Tobacco Use Smoking Status *Q: Current Every Day Smoker Years of Tobacco use: 50 Packs/Tins Daily: 1 - Caffeine Use Caffeine Use: Reports: None Caffeine Use Comment: 2 cups a day - Alcohol Use Days Per Week of Alcohol Use: 7 Number of Drinks Per Day: 3 Total Drinks Per Week: 21 - Recreational Drug Use Recreational Drug Use: No ED ROS GENERAL - Review of Systems Review Of Systems: ROS reveals no pertinent complaints other than HPI. ED EXAM, GENERAL - Physical Exam Exam: See Below Exam Limited By: No Limitations General Appearance: Alert, No Apparent Distress, Thin Eye Exam: Bilateral Eye: EOMI, PERRL Ears: Normal External Exam Nose: Normal Inspection Throat/Mouth: Normal Inspection Head: Atraumatic, Normocephalic Neck: Normal Inspection, Supple, Non-Tender Respiratory/Chest: No Respiratory Distress, Lungs Clear, Normal Breath Sounds Cardiovascular: Normal Peripheral Pulses, Regular Rate, Rhythm Peripheral Pulses: 2+: Dorsalis Pedis (L), Dorsalis Pedis (R) GI/Abdominal: Normal Bowel Sounds Back Exam: Normal Inspection Extremities: Normal Inspection, Normal Range of Motion, Non-Tender Neurological: Alert, Sensory/Motor Deficit Psychiatric: Normal Affect, Normal Mood Skin Exam: Warm, Dry, Intact Course - Vital Signs Last Recorded V/S: Last Vital Signs Temp 36.4 C 12/23/18 17:27 Pulse 82 12/23/18 17:27 Resp 18 12/23/18 17:27 BP 96/67 12/23/18 17:27 Pulse Ox 97 12/23/18 17:27 - Orders/Labs/Meds Orders: Active Orders 24 hr Category Date Time Status Head wo Cont [CT] Stat Exams 12/23/18 16:19 Taken DRUG SCREEN, URINE [URCHEM] Stat Lab 12/23/18 16:19 Ordered UA RFX LANCE AND CULT IF INDIC [URIN] Stat Lab 12/23/18 16:20 Ordered Sodium Chloride 0.9% with KCl [Normal Saline with 40 Med 12/23/18 18:15 Active mEq KCl] 1,000 ml IV ASDIRECTED Medication Orders Potassium Chloride/Sodium Chloride (Normal Saline With 40 Meq Kcl) 1,000 mls @ 250 mls/hr IV ASDIRECTED DANA Last Admin: 12/23/18 18:24 Dose: 250 mls/hr Labs: Laboratory Tests 12/23/18 12/23/18 Range/Units 16:19 16:19 WBC 7.7 D (4.0-11.0) K/uL RBC 4.39 (3.80-5.80) M/uL Hgb 14.6 D (11.5-16.5) g/dL Hct 41.6 D (37.0-47.0) % MCV 95 (76-96) fL MCH 33.3 H (27.0-32.0) pg MCHC 35.1 H (31.0-35.0) g/dL RDW 14.6 (11.0-16.0) % Plt Count 272 D (150-500) K/uL MPV 9.0 (6.0-10.0) fL Neut % (Auto) 75.1 H (45.0-70.0) % Lymph % (Auto) 14.8 L (20.0-40.0) % [place] % (Auto) 8.6 (3.0-10.0) % Eos % (Auto) 1.4 (1.0-5.0) % Baso % (Auto) 0.1 (0.0-0.5) % Neut # (Auto) 5.75 (2.00-7.50) K/uL Lymph # (Auto) 1.13 L (1.50-4.00) K/uL [place] # (Auto) 0.66 (0.20-0.80) K/uL Eos # (Auto) 0.11 (0.04-0.40) K/uL Baso # (Auto) 0.01 L (0.02-0.10) K/uL Sodium 141 (136-145) mmol/L Potassium 1.8 L* D (3.5-5.1) mmol/L Chloride 103 (98-107) mmol/L Carbon Dioxide 23.4 D (21.0-32.0) mmol/L Anion Gap 16.4 H (5.0-15.0) mmol/L BUN 15 D (8-26) mg/dL Creatinine 0.97 D (0.55-1.02) mg/dL Est Cr Clr Drug Dosing 41.40 mL/min Estimated GFR (MDRD) 58 L (>60) MLS/MIN BUN/Creatinine Ratio 15.5 (6-25) Glucose 131 H D (74-100) mg/dL Calcium 8.2 L (8.5-10.1) mg/dL Total Bilirubin 0.8 D (0.0-1.0) mg/dL AST 105 H (15-37) U/L ALT 71 (12-78) U/L Alkaline Phosphatase 265 H (46-116) U/L Total Protein 7.3 (6.4-8.2) g/dL Albumin 3.0 L (3.4-5.0) g/dL Globulin 4.3 H (2.2-4.2) g/dL Albumin/Globulin Ratio 0.7 L (0.8-2.0) TSH, Ultra Sensitive 1.627 (0.358-3.740) uIU/mL Ethyl Alcohol 9.0 H (0.0-0.0) mg/dL Meds: Medications Generic Name Dose Route Start Last Admin Trade Name Freq PRN Reason Stop Dose Admin Potassium Chloride/Sodium Chloride 1,000 mls @ 250 mls/hr 12/23/18 18:15 18:24 Normal Saline With 40 Meq Kcl IV 250 mls/hr ASDIRECTED DANA Administration Departure - Departure Time of Disposition: 19:31 Disposition: DC/Tfer to Acute Hospital 02 Condition: Fair Clinical Impression: CVA (cerebral vascular accident) Qualifiers: CVA mechanism: unspecified Qualified Code(s): I63.9 - Cerebral infarction, unspecified - Discharge Information Referrals: PCP,Unknown [Primary Care Provider] - Forms: ED Department Discharge - Problem List & Annotations (1) CVA (cerebral vascular accident) SNOMED Code(s): 424315014 Code(s): I63.9 - CEREBRAL INFARCTION, UNSPECIFIED Status: Acute Priority : High Qualifiers: CVA mechanism: unspecified Qualified Code(s): I63.9 - Cerebral infarction, unspecified - Problem List Review Problem List Initiated/Reviewed/Updated: Yes - My Orders Last 24 Hours: My Active Orders 12/23/18 16:19 Head wo Cont [CT] Stat DRUG SCREEN, URINE [URCHEM] Stat 12/23/18 16:20 UA RFX LANCE AND CULT IF INDIC [URIN] Stat 12/23/18 18:15 Sodium Chloride 0.9% with KCl [Normal Saline with 40 mEq KCl] 1,000 ml IV ASDIRECTED - Assessment/Plan Last 24 Hours: My Active Orders 12/23/18 16:19 Head wo Cont [CT] Stat DRUG SCREEN, URINE [URCHEM] Stat 12/23/18 16:20 UA RFX LANCE AND CULT IF INDIC [URIN] Stat 12/23/18 18:15 Sodium Chloride 0.9% with KCl [Normal Saline with 40 mEq KCl] 1,000 ml IV ASDIRECTED Plan: Patient to be transferred to [facility] for further CVA workup and management. Patient and family agree with plan of care. Neurology and Hospitalist consulted.
--- NOTE | 2018-12-23 21:33 | CT ---
DATE OF SERVICE: 12/23/2018 CLINICAL DATA: Weakness - stroke symptoms. UNENHANCED BRAIN CT: Multislice acquisitions through the brain without IV contrast was performed. No priors. There is bifrontal atrophy. There are periventricular lucencies bilaterally consistent with small vessel ischemic change. There is a subtle low density in the left internal capsule suggesting the possibility of an acute/subacute infarct. No other significant findings. No intracranial hemorrhage. No osseous abnormalities. Followup CT or followup MRI may be helpful. [id number] [facility]
== END 2018-12-23 19:20 ==
LOC: LB.ED 16:10
DX: I63.9 Cerebral infarction, unspecified (principal); I10 Essential (primary) hypertension; J45.909 Unspecified asthma, uncomplicated; K21.9 Gastro-esophageal reflux disease without esophagitis; F41.9 Anxiety disorder, unspecified; F32.9 Major depressive disorder, single episode, unspecified; E03.9 Hypothyroidism, unspecified; F17.210 Nicotine dependence, cigarettes, uncomplicated; Z91.048 Other nonmedicinal substance allergy status; Z88.8 Allergy status to other drugs, medicaments and biological substances; Z79.899 Other long term (current) drug therapy
CPT/HCPCS: 36415; 70450; 80053; 84443; 85025; 96365; 99285; 99285-25; G0480; J3480

== ENCOUNTER 2020-04-04 13:35 | Inpatient (IN) | payer MEDICARE, BC, OTHER ==
[2020-04-04] MEDS ORDERED: Lactated Ringers 1,000 ML IV SCH (14:00)
--- NOTE | 2020-04-04 14:02 | EDM.PDOC ---
ED HPI GENERAL MEDICAL PROBLEM - General Chief Complaint: General Stated Complaint: Low Potassium/Weakness Time Seen by Provider: 04/04/20 13:45 Source of Information: Reports: Patient, Old Records, Significant Other History Limitations: Reports: No Limitations - History of Present Illness INITIAL COMMENTS - FREE TEXT/NARRATIVE: patient presented to the ER with a c/o progressive fatigue over the last 5-7 days. h/o hypokalemia. hasn't been taking her K supplements lately. Similar incidence a year ago. Reports fatigue and progressive weakness. no headache, no CP, SOB, no loose stool. Decreased appetite today. lives at home with son, who report that she hasn't been able to move around by herself like usual and has been needing help and assistance. No fever or chills. h/o afib, but not on any blood thinners. h/o SBO requiring SBRx2 several months ago. Onset: Gradual Duration: Week(s): (1) - Related Data Allergies Allergy/AdvReac Type Severity Reaction Status Date / Time adhesive tape Allergy Intermediate itching Verified 09/09/18 19:05 rash adhesive Allergy itching Verified 09/09/18 19:05 rash prednisolone Allergy Nausea Verified 09/09/18 19:05 Home Meds: Home Meds Levothyroxine [Synthroid] 50 mcg PO ACBREAKFAST 03/04/13 [History] Albuterol Sulfate [Proair Respiclick] 1 - 2 inh IH Q4H PRN 09/13/15 [History] Potassium Chloride 40 meq PO DAILY 09/13/15 [History] methocarbamoL [Methocarbamol] 500 mg PO QID PRN 09/13/15 [History] Doxepin [SINEquan] 50 mg PO TID PRN 08/25/18 [History] Esomeprazole [NexIUM] 40 mg PO ACBREAKFAST 08/25/18 [History] Folic Acid 1 mg PO DAILY 08/25/18 [History] Magnesium Oxide 400 mg PO BID 08/25/18 [History] Multivit-Min/FA/Lycopen/Lutein [Certavite Sr-Antioxidant Tab] 1 tab PO DAILY 08/25/18 [History] Thiamine HCl [Vitamin B-1] 1 tab PO DAILY 08/25/18 [History] buPROPion [buPROPion XL] 150 mg PO DAILY 08/25/18 [History] Acetaminophen [Acetaminophen Extra Strength] 500 mg PO Q4HR PRN 09/10/18 [History] Amitriptyline [Elavil] 25 - 75 mg PO BEDTIME PRN 09/10/18 [History] DULoxetine [Cymbalta] 60 mg PO DAILY 09/10/18 [History] Ferrous Sulfate 325 mg PO DAILY 09/10/18 [History] Acetaminophen/HYDROcodone [[place] 325-10 MG] 1 tab PO Q6H PRN tablet 09/13/18 [Rx] Bacitracin [Bacitracin Oint 1 GM] 1 dose TOP BID packet 09/13/18 [Rx] Fluconazole [Diflucan] 150 mg PO DAILY tablet 09/13/18 [Rx] Hydrocortisone Acetate [Hydrocortisone Acetate 1% Crm] 1 gm TOP TID PRN tube 09/13/18 [Rx] Pramoxine HCl/Benzyl Alcohol [Itch-X] 1 applic TOP DAILY 09/13/18 [Rx] Past Medical History HEENT History: Reports: Impaired Vision Cardiovascular History: Reports: None, Hypertension Respiratory History: Reports: Asthma Gastrointestinal History: Reports: GERD, Other (See Below) Other Gastrointestinal History: constipation Genitourinary History: Reports: Acute Renal Failure Other Genitourinary History: Son stated he was worried about her kidneys DATA ABSTRACTOR 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 parity: 2, gravity: 2 Musculoskeletal History: Reports: Fracture, Osteoarthritis Other Musculoskeletal History: arthritis especially in shoulders, severe fx with plate rt femur, repaired several times shoulders injected with steriods fracture right lower leg 2 days ago fell Psychiatric History: Reports: Addiction, Anxiety, Depression Other Psychiatric History: please note: patient states she stopped smoking approx 8 months ago Endocrine/Metabolic History: Reports: Hypothyroidism, Other (See Below), Osteoporosis, Osteopenia Other Endocrine/Metabolic History: hx of osteomylitis Immunologic History: Reports: None Oncologic (Cancer) History: Reports: None Dermatologic History: Reports: Other (See Below) Other Dermatologic History: Has some allergies whch cause hives, not sure of the source - Infectious Disease History Infectious Disease History: Reports: Chicken Pox, Measles, Mumps - Past Surgical History HEENT Surgical History: Reports: Other (See Below) GI Surgical History: Reports: Hernia, Abdominal Other Neurological Surgeries/Procedures: B LEs: no sensation changes Musculoskeletal Surgical History: Reports: Other (See Below) - History Comment History Comment: Pt has a drinking problem recently drawn to my attention. Is also on narcotics for the fracture of her right upper leg, osteomyelitis also - [facility] Social & Family History - Family History Family Medical History: No Pertinent Family History - Caffeine Use Caffeine Use: Reports: None Caffeine Use Comment: 2 cups a day ED ROS GENERAL - Review of Systems Review Of Systems: Comprehensive ROS is negative, except as noted in HPI. Constitutional: Reports: Malaise, Fatigue HEENT: Reports: No Symptoms Respiratory: Reports: No Symptoms Cardiovascular: Reports: No Symptoms Endocrine: Reports: Fatigue GI/Abdominal: Reports: Anorexia, Decreased Appetite. Denies: Abdominal Pain, Diarrhea, Distension Musculoskeletal: Reports: No Symptoms Skin: Reports: No Symptoms Neurological: Reports: No Symptoms Psychiatric: Reports: No Symptoms ED EXAM, GENERAL - Physical Exam Exam: See Below Exam Limited By: No Limitations General Appearance: Alert, No Apparent Distress, Lethargic, Thin Eye Exam: Bilateral Eye: PERRL Nose: Normal Inspection Head: Atraumatic, Normocephalic Respiratory/Chest: No Respiratory Distress, Lungs Clear Cardiovascular: Normal Peripheral Pulses, Irregularly Irregular GI/Abdominal: Normal Bowel Sounds, Soft, Non-Tender, No Distention Back Exam: Normal Inspection Extremities: Normal Inspection Neurological: Alert, Oriented Psychiatric: Normal Affect Course - Vital Signs Last Recorded V/S: Last Vital Signs Temp 36.4 C 04/04/20 14:14 Pulse 10 L 04/04/20 14:14 Resp 20 04/04/20 14:14 BP 101/65 04/04/20 14:14 Pulse Ox 95 04/04/20 14:14 - Orders/Labs/Meds Orders: Active Orders 24 hr Category Date Time Status EKG Documentation Completion [RC] ASDIRECTED Care 04/04/20 13:51 Active AMMONIA VENOUS [CHEM] Stat Lab 04/04/20 13:49 Ordered CBC WITH AUTO DIFF [HEME] Stat Lab 04/04/20 13:50 Results COMPREHENSIVE METABOLIC PN,CMP [CHEM] Stat Lab 04/04/20 13:49 Ordered CORONAVIRUS COVID-19 RAPID [MOLEC] Urgent Lab 04/04/20 13:56 Ordered INR,PT,PROTHROMBIN TIME [COAG] Stat Lab 04/04/20 13:58 Ordered MAGNESIUM [CHEM] Stat Lab 04/04/20 13:49 Ordered PHOSPHORUS [CHEM] Stat Lab 04/04/20 13:49 Ordered TSH ULTRASENSITIVE [CHEM] Stat Lab 04/04/20 13:49 Ordered UA RFX LANCE AND CULT IF INDIC [URIN] Urgent Lab 04/04/20 13:50 Ordered Lactated Ringers [Ringers, Lactated] 1,000 ml Med 04/04/20 14:00 Active IV ASDIRECTED Medication Orders Lactated Ringer's (Ringers, Lactated) 1,000 mls @ 100 mls/hr IV ASDIRECTED DANA Last Admin: 04/04/20 14:02 Dose: 100 mls/hr Documented by: LINDA Labs: Laboratory Tests 04/04/20 Range/Units 13:50 WBC 9.0 D (4.0-11.0) K/uL RBC 3.10 L (3.80-5.80) M/uL Hgb 12.2 (11.5-16.5) g/dL Hct 34.4 L (37.0-47.0) % MCV 111 H (76-96) fL MCH 39.4 H (27.0-32.0) pg MCHC 35.5 H (31.0-35.0) g/dL RDW 14.2 (11.0-16.0) % Plt Count 270 D (150-500) K/uL MPV 9.4 (6.0-10.0) fL Add Manual Diff Yes Meds: Medications Generic Name Dose Route Start Last Admin Trade Name [place] PRN Reason Stop Dose Admin Lactated Ringer's 1,000 mls @ 100 mls/hr 04/04/20 14:00 04/04/20 14:02 Ringers, Lactated IV 100 mls/hr ASDIRECTED DANA Administration - Re-Assessments/Exams Free Text/Narrative Re-Assessment/Exam: 04/04/20 14:28 patient was connected to a monitor EKG showed afib - with a rate of 100-110. labs ordered - K significant for 1.6, as well as, hypokalemia and hyomagnesemia. IVF LR was started,as well as, K replacement by IV 04/04/20 14:31 her labs also significant for hyperammonemia. h/o alcoholic liver disease, last drink was yesterday. given the significant abnormalities in blood tests - recommend admission for electrolytes replacement and close monitoring Departure - Departure Time of Disposition: 14:32 Disposition: Admitted As Inpatient 64 Condition: Critical Clinical Impression: Hypokalemia, Hypomagnesemia, Hypophosphatemia, Alcoholic liver damage, Generalized weakness, Increased ammonia level Fatigue Qualifiers: Fatigue type: other Qualified Code(s): R53.83 - Other fatigue Afib Qualifiers: Atrial fibrillation type: persistent (not longstanding) Qualified Code(s): I48.19 - Other persistent atrial fibrillation; I48.1 - Persistent atrial fibrillation - Discharge Information *PRESCRIPTION DRUG MONITORING PROGRAM REVIEWED*: Not Applicable *COPY OF PRESCRIPTION DRUG MONITORING REPORT IN PATIENT SARY: Not Applicable Forms: ED Department Discharge Sepsis Event Note (ED) - Focused Exam Vital Signs: Vital Signs Temp Pulse Resp BP Pulse Ox 04/04/20 14:14 36.4 C 10 L 20 101/65 95 04/04/20 13:51 36.9 C 110 H 17 110/62 - Problem List & Annotations (1) Increased ammonia level SNOMED Code(s): 538464787, 540886157, 057517250 Code(s): R79.89 - OTHER SPECIFIED ABNORMAL FINDINGS OF BLOOD CHEMISTRY Status: Acute Priority: High (2) Alcoholic liver damage SNOMED Code(s): 08454308 Code(s): K70.9 - ALCOHOLIC LIVER DISEASE, UNSPECIFIED Status: Acute (3) Hypokalemia SNOMED Code(s): 99225898 Code(s): E87.6 - HYPOKALEMIA Status: Acute (4) Hypomagnesemia SNOMED Code(s): 380463040 Code(s): E83.42 - HYPOMAGNESEMIA Status: Acute (5) Hypophosphatemia SNOMED Code(s): 9631218 Code(s): E83.39 - OTHER DISORDERS OF PHOSPHORUS METABOLISM Status: Acute - Problem List Review Problem List Initiated/Reviewed/Updated: Yes - My Orders Last 24 Hours: My Active Orders 04/04/20 13:49 AMMONIA VENOUS [CHEM] Stat COMPREHENSIVE METABOLIC PN,CMP [CHEM] Stat MAGNESIUM [CHEM] Stat PHOSPHORUS [CHEM] Stat TSH ULTRASENSITIVE [CHEM] Stat 04/04/20 13:50 CBC WITH AUTO DIFF [HEME] Stat UA RFX LANCE AND CULT IF INDIC [URIN] Urgent 04/04/20 13:51 EKG Documentation Completion [RC] ASDIRECTED 04/04/20 13:56 CORONAVIRUS COVID-19 RAPID [MOLEC] Urgent 04/04/20 13:58 INR,PT,PROTHROMBIN TIME [COAG] Stat 04/04/20 14:00 Lactated Ringers [Ringers, Lactated] 1,000 ml IV ASDIRECTED - Assessment/Plan Last 24 Hours: My Active Orders 04/04/20 13:49 AMMONIA VENOUS [CHEM] Stat COMPREHENSIVE METABOLIC PN,CMP [CHEM] Stat MAGNESIUM [CHEM] Stat PHOSPHORUS [CHEM] Stat TSH ULTRASENSITIVE [CHEM] Stat 04/04/20 13:50 CBC WITH AUTO DIFF [HEME] Stat UA RFX LANCE AND CULT IF INDIC [URIN] Urgent 04/04/20 13:51 EKG Documentation Completion [RC] ASDIRECTED 04/04/20 13:56 CORONAVIRUS COVID-19 RAPID [MOLEC] Urgent 04/04/20 13:58 INR,PT,PROTHROMBIN TIME [COAG] Stat 04/04/20 14:00 Lactated Ringers [Ringers, Lactated] 1,000 ml IV ASDIRECTED
[2020-04-04] MEDS ORDERED: Potassium Chloride Riders 10 MEQ in Premix Bag 1 BAG IV ONE (14:30)
[2020-04-04] MEDS ORDERED: Sodium Chloride 0.9% 1,000 ML IV SCH (14:45)
[2020-04-04] MEDS: Enoxaparin 40 MG/0.4 ML Syringe SUBCUT SCH (16:05)
[2020-04-04] MEDS: Nicotine 14 MG/24 Hr Patch TRDERM SCH (16:05)
[2020-04-04] MEDS: Magnesium Sulfate/D5W 1 GM/100 ML Premix Bag IV SCH (16:11)
[2020-04-04] MEDS ORDERED: Potassium Chloride Riders 50 ML ONE (19:12)
[2020-04-04] MEDS: Potassium Chloride Riders 10 MEQ in Premix Bag 1 BAG IV SCH (19:34)
[2020-04-05] MEDS ORDERED: NS + KCl 20mEq/L 1,000 ML ONE (01:44)
[2020-04-05] MEDS ORDERED: Potassium Chloride Riders 50 ML ONE ×2 (01:45→19:32)
[2020-04-05] MEDS: Benzonatate 100 MG Cap PO PRN ×2 (01:49→07:55)
[2020-04-05] MEDS ORDERED: Potassium Chloride 10% 20 MEQ/15 ML Soln 15 ML UD Cup PO ONE (01:57)
[2020-04-05] MEDS: NS + KCl 20mEq/L 1,000 ML IV SCH ×2 (02:06→17:59)
[2020-04-05] MEDS: Potassium Chloride Riders 10 MEQ in Premix Bag 1 BAG IV SCH ×4 (02:15→19:44)
[2020-04-05] MEDS: Nicotine 14 MG/24 Hr Patch TRDERM SCH (08:01)
[2020-04-05] MEDS: Enoxaparin 40 MG/0.4 ML Syringe SUBCUT SCH (08:04)
[2020-04-05] MEDS: Magnesium Sulfate/D5W 1 GM/100 ML Premix Bag IV SCH (09:16)
[2020-04-05] MEDS ORDERED: Potassium Phosphates 20 MMOLE in Sodium Chloride 0.9% 250 ML IV SCH (11:15)
[2020-04-05] MEDS ORDERED: Melatonin 3 MG Tab PO PRN (11:24)
[2020-04-05] MEDS: Cetirizine 10 MG Tab PO SCH (12:02)
[2020-04-05] MEDS: [UNRECOGNIZED DRUG - OTHER] PO SCH ×3 (12:50→19:45)
--- NOTE | 2020-04-05 12:50 | PCM.HP.2 ---
H&P History of Present Illness - General Date of Service: 04/05/20 Admit Problem/Dx: Admission Diagnosis/Problem Admission Diagnosis/Problem Hypokalemia Source of Information: Patient History Limitations: Reports: No Limitations - History of Present Illness Initial Comments - Free Text/Narative: ida presented to the ER with a c/o progressive fatigue over the last 5-7 days was found to be severe hypokalemia, and low phosphorous and magnesium. h/o hypokalemia. hasn't been taking her K supplements lately. Similar incidence a year ago. lives at home with son, who report that she hasn't been able to move around by herself like usual and has been needing help and assistance. h/o afib, but not on any blood thinners. h/o SBO requiring SBRx2 several months ago. Was admitted to the floor for hydration and electrolytes correction. Received K by IV as well as magnesium replacement. Onset of Symptoms: Reports: Gradual Duration of Symptoms: Reports: Day(s): (7) - Related Data Allergies/Adverse Reactions: Allergies Allergy/AdvReac Type Severity Reaction Status Date / Time adhesive Allergy Mild itching Verified 04/04/20 17:09 rash adhesive tape Allergy Mild itching Verified 04/04/20 17:09 rash prednisolone Allergy Mild Nausea Verified 04/04/20 17:09 Home Medications: Home Meds Levothyroxine [Synthroid] 50 mcg PO ACBREAKFAST 03/04/13 [History] Albuterol Sulfate [Proair Respiclick] 1 - 2 inh IH Q4H PRN 09/13/15 [History] Potassium Chloride 40 meq PO BID 09/13/15 [History] methocarbamoL [Methocarbamol] 500 mg PO TID 09/13/15 [History] Esomeprazole [NexIUM] 40 mg PO ACBREAKFAST PRN 08/25/18 [History] Multivit-Min/FA/Lycopen/Lutein [Certavite Sr-Antioxidant Tab] 1 tab PO DAILY 08/25/18 [History] Amitriptyline [Elavil] 25 - 75 mg PO BEDTIME PRN 09/10/18 [History] DULoxetine [Cymbalta] 120 mg PO DAILY 09/10/18 [History] Loperamide HCl [Loperamide] 2 mg PO TID PRN 04/04/20 [History] Past Medical History HEENT History: Reports: Impaired Vision Cardiovascular History: Reports: Afib, Hypertension Respiratory History: Reports: Asthma Gastrointestinal History: Reports: GERD, Other (See Below) Other Gastrointestinal History: constipation Genitourinary History: Reports: Acute Renal Failure Other Genitourinary History: Son stated he was worried about her kidneys [employer] History: Reports: Other OB/BYN History: 2 son vaginal. parity: 2, gravity: 2 Musculoskeletal History: Reports: Fracture, Osteoarthritis Other Musculoskeletal History: arthritis especially in shoulders, severe fx with plate rt femur, repaired several times shoulders injected with steriods fracture right lower leg 2 days ago fell Psychiatric History: Reports: Addiction, Anxiety, Depression Other Psychiatric History: please note: patient states she stopped smoking approx 8 months ago Endocrine/Metabolic History: Reports: Hypothyroidism, Other (See Below), Osteopo rosis, Osteopenia Other Endocrine/Metabolic History: hx of osteomylitis Immunologic History: Reports: None Oncologic (Cancer) History: Reports: None Dermatologic History: Reports: Other (See Below) Other Dermatologic History: Has some allergies whch cause hives, not sure of the source - Infectious Disease History Infectious Disease History: Reports: Chicken Pox, Measles, Mumps - Past Surgical History HEENT Surgical History: Reports: Other (See Below) Other HEENT Surgeries/Procedures: wears glasses at times Cardiovascular Surgical History: Reports: None Respiratory Surgical History: Reports: None GI Surgical History: Reports: Hernia, Abdominal Female Surgical History: Reports: Hysterectomy, Oophorectomy Endocrine Surgical History: Reports: None Other Neurological Surgeries/Procedures: B LEs: no sensation changes Musculoskeletal Surgical History: Reports: Other (See Below) Other Musculoskeletal Surgeries/Procedures:: ankle fracture: R. back pain. general shoulder arthritis. neck pain Dermatological Surgical History: Reports: None - History Comment History Comment: Pt has a drinking problem recently drawn to my attention. Is also on narcotics for the fracture of her right upper leg, osteomyelitis also - treated at the [facility] in the past year Social & Family History - Family History Family Medical History: No Pertinent Family History - Tobacco Use Tobacco Use Status *Q: Current Every Day Tobacco User Years of Tobacco use: 50 Packs/Tins Daily: 1 Second Hand Smoke Exposure: Yes - Caffeine Use Caffeine Use: Reports: Soda Caffeine Use Comment: 2 cups a day - Alcohol Use Days Per Week of Alcohol Use: 1 Number of Drinks Per Day: 5 Total Drinks Per Week: 5 - Recreational Drug Use Recreational Drug Use: No H&P Review of Systems - Review of Systems: Review Of Systems: Comprehensive ROS is negative, except as noted in HPI. General: Reports: Malaise, Fatigue HEENT: Reports: No Symptoms Pulmonary: Reports: No Symptoms Cardiovascular: Reports: No Symptoms Gastrointestinal: Reports: No Symptoms Musculoskeletal: Reports: No Symptoms Skin: Reports: No Symptoms Neurological: Reports: No Symptoms Exam - Exam Exam: See Below - Vital Signs Vital Signs: Last Vital Signs Temp 37.0 C 04/05/20 12:00 Pulse 84 04/05/20 12:00 Resp 18 04/05/20 12:00 BP 128/59 L 04/05/20 12:00 Pulse Ox 98 04/05/20 12:00 Weight: 43.545 kg - Exam General: Alert, Oriented HEENT: PERRLA, Conjunctiva Clear Neck: Supple Lungs: Clear to Auscultation Cardiovascular: Irregular Rhythm GI/Abdominal Exam: Normal Bowel Sounds Back Exam: Normal Inspection Extremities: Normal Inspection Neuro Extensive - Mental Status: Alert, Oriented x3, Normal Mood/Affect - Patient Data Lab Results Last 24 hrs: Laboratory Results - last 24 hr 04/04/20 04/04/20 04/04/20 Range/Units 13:50 13:50 13:50 WBC 9.0 D (4.0-11.0) K/uL RBC 3.10 L (3.80-5.80) M/uL Hgb 12.2 (11.5-16.5) g/dL Hct 34.4 L (37.0-47.0) % MCV 111 H (76-96) fL MCH 39.4 H (27.0-32.0) pg MCHC 35.5 H (31.0-35.0) g/dL RDW 14.2 (11.0-16.0) % Plt Count 270 D (150-500) K/uL MPV 9.4 (6.0-10.0) fL Add Manual Diff Yes Neutrophils % (Manual) 80.0 H (45.0-70.0) % Lymphocytes % (Manual) 14.0 L (20.0-40.0) % Monocytes % (Manual) 5.0 (3.0-10.0) % Eosinophils % (Manual) 1.0 (1.0-5.0) % Platelet Estimate Adequate PT (9.0-11.5) sec INR (1.0-3.5) Sodium 142 (136-145) mmol/L Potassium 1.6 L* D (3.5-5.1) mmol/L Chloride 104 (98-107) mmol/L Carbon Dioxide 19.6 L (21.0-32.0) mmol/L Anion Gap 20.0 H (5.0-15.0) mmol/L BUN 16 D (8-26) mg/dL Creatinine 1.08 H D (0.55-1.02) mg/dL Est Cr Clr Drug Dosing TNP Estimated GFR (MDRD) 51 L (>60) MLS/MIN BUN/Creatinine Ratio 14.8 (6-25) Glucose 137 H (74-100) mg/dL Calcium 8.4 L (8.5-10.1) mg/dL Phosphorus 1.8 L (2.5-4.9) mg/dL Magnesium 1.0 L (1.8-2.4) mg/dL Total Bilirubin 1.2 H D (0.0-1.0) mg/dL AST 210 H (15-37) U/L ALT 58 (12-78) U/L Alkaline Phosphatase 244 H (46-116) U/L Ammonia 101 H (11-32) umol/L Total Protein 7.1 (6.4-8.2) g/dL Albumin 2.6 L (3.4-5.0) g/dL Globulin 4.5 H (2.2-4.2) g/dL Albumin/Globulin Ratio 0.6 L (0.8-2.0) TSH, Ultra Sensitive 2.527 D (0.358-3.740) uIU/mL Urine Color Urine Appearance (CLEAR) Urine pH (5.0-8.0) Ur Specific [place] (1.003-1.030) Urine Protein (NEGATIVE) mg/dL Urine Glucose (UA) (NEGATIVE) mg/dL Urine Ketones (NEGATIVE) mg/dL Urine Occult Blood (NEGATIVE) Urine Nitrite (NEGATIVE) Urine Bilirubin (NEGATIVE) Urine Urobilinogen (0.2-1.0) E.U./dL Ur Leukocyte Esterase (NEGATIVE) Urine RBC /HPF Urine WBC Ur Epithelial Cells /HPF Ur Squamous Epith Cells /HPF Urine Bacteria /HPF Urine Mucus /HPF SARS-CoV-2 RNA (RAÚL) (NEGATIVE) SARS CoV-2 RNA Rapid RAÚL 04/04/20 04/04/20 04/04/20 Range/Units 13:56 13:58 14:20 WBC (4.0-11.0) K/uL RBC (3.80-5.80) M/uL Hgb (11.5-16.5) g/dL Hct (37.0-47.0) % MCV (76-96) fL MCH (27.0-32.0) pg MCHC (31.0-35.0) g/dL RDW (11.0-16.0) % Plt Count (150-500) K/uL MPV (6.0-10.0) fL Add Manual Diff Neutrophils % (Manual) (45.0-70.0) % Lymphocytes % (Manual) (20.0-40.0) % Monocytes % (Manual) (3.0-10.0) % Eosinophils % (Manual) (1.0-5.0) % Platelet Estimate PT 11.7 H (9.0-11.5) sec INR 1.1 (1.0-3.5) Sodium (136-145) mmol/L Potassium (3.5-5.1) mmol/L Chloride (98-107) mmol/L Carbon Dioxide (21.0-32.0) mmol/L Anion Gap (5.0-15.0) mmol/L BUN (8-26) mg/dL Creatinine (0.55-1.02) mg/dL Est Cr Clr Drug Dosing Estimated GFR (MDRD) (>60) MLS/MIN BUN/Creatinine Ratio (6-25) Glucose (74-100) mg/dL Calcium (8.5-10.1) mg/dL Phosphorus (2.5-4.9) mg/dL Magnesium (1.8-2.4) mg/dL Total Bilirubin (0.0-1.0) mg/dL AST (15-37) U/L ALT (12-78) U/L Alkaline Phosphatase (46-116) U/L Ammonia (11-32) umol/L Total Protein (6.4-8.2) g/dL Albumin (3.4-5.0) g/dL Globulin (2.2-4.2) g/dL Albumin/Globulin Ratio (0.8-2.0) TSH, Ultra Sensitive (0.358-3.740) uIU/mL Urine Color Urine Appearance (CLEAR) Urine pH (5.0-8.0) Ur Specific [place] (1.003-1.030) Urine Protein (NEGATIVE) mg/dL Urine Glucose (UA) (NEGATIVE) mg/dL Urine Ketones (NEGATIVE) mg/dL Urine Occult Blood (NEGATIVE) Urine Nitrite (NEGATIVE) Urine Bilirubin (NEGATIVE) Urine Urobilinogen (0.2-1.0) E.U./dL Ur Leukocyte Esterase (NEGATIVE) Urine RBC /HPF Urine WBC Ur Epithelial Cells /HPF Ur Squamous Epith Cells /HPF Urine Bacteria /HPF Urine Mucus /HPF SARS-CoV-2 RNA (RAÚL) Negative (NEGATIVE) SARS CoV-2 RNA Rapid RAÚL Cancelled 04/04/20 04/05/20 04/05/20 Range/Units 18:00 00:42 10:00 WBC (4.0-11.0) K/uL RBC (3.80-5.80) M/uL Hgb (11.5-16.5) g/dL Hct (37.0-47.0) % MCV (76-96) fL MCH (27.0-32.0) pg MCHC (31.0-35.0) g/dL RDW (11.0-16.0) % Plt Count (150-500) K/uL MPV (6.0-10.0) fL Add Manual Diff Neutrophils % (Manual) (45.0-70.0) % Lymphocytes % (Manual) (20.0-40.0) % Monocytes % (Manual) (3.0-10.0) % Eosinophils % (Manual) (1.0-5.0) % Platelet Estimate PT (9.0-11.5) sec INR (1.0-3.5) Sodium 140 (136-145) mmol/L Potassium 1.3 L* 1.4 L* (3.5-5.1) mmol/L Chloride 106 (98-107) mmol/L Carbon Dioxide 20.9 L (21.0-32.0) mmol/L Anion Gap 14.4 (5.0-15.0) mmol/L BUN 15 (8-26) mg/dL Creatinine 1.00 (0.55-1.02) mg/dL Est Cr Clr Drug Dosing 37.64 Estimated GFR (MDRD) 55 L (>60) MLS/MIN BUN/Creatinine Ratio 15.0 (6-25) Glucose 107 H (74-100) mg/dL Calcium 7.4 L (8.5-10.1) mg/dL Phosphorus (2.5-4.9) mg/dL Magnesium 1.7 L D (1.8-2.4) mg/dL Total Bilirubin (0.0-1.0) mg/dL AST (15-37) U/L ALT (12-78) U/L Alkaline Phosphatase (46-116) U/L Ammonia (11-32) umol/L Total Protein (6.4-8.2) g/dL Albumin (3.4-5.0) g/dL Globulin (2.2-4.2) g/dL Albumin/Globulin Ratio (0.8-2.0) TSH, Ultra Sensitive (0.358-3.740) uIU/mL Urine Color Yellow Urine Appearance Clear (CLEAR) Urine pH 7.0 (5.0-8.0) Ur Specific [place] 1.020 (1.003-1.030) Urine Protein 100 H (NEGATIVE) mg/dL Urine Glucose (UA) Negative (NEGATIVE) mg/dL Urine Ketones Negative (NEGATIVE) mg/dL Urine Occult Blood Moderate H (NEGATIVE) Urine Nitrite Negative (NEGATIVE) Urine Bilirubin Negative (NEGATIVE) Urine Urobilinogen 0.2 (0.2-1.0) E.U./dL Ur Leukocyte Esterase Negative (NEGATIVE) Urine RBC 0-5 H /HPF Urine WBC Not Reportable Ur Epithelial Cells Few /HPF Ur Squamous Epith Cells Few /HPF Urine Bacteria Few /HPF Urine Mucus Few /HPF SARS-CoV-2 RNA (RAÚL) (NEGATIVE) SARS CoV-2 RNA Rapid RAÚL Result Diagrams: 04/04/20 13:50 04/05/20 10:00 Sepsis Event Note - Evaluation Sepsis Screening Result: No Definite Risk - Focused Exam Vital Signs: Vital Signs Temp Pulse Pulse Resp BP Pulse Ox 04/05/20 12:00 37.0 C 84 18 128/59 L 98 04/05/20 08:00 37.3 C 68 18 108/75 99 04/05/20 02:22 37.2 C 89 18 124/75 98 - Problem List (1) Increased ammonia level SNOMED Code(s): 874642871, 736402456, 166445094 ICD Code: R79.89 - OTHER SPECIFIED ABNORMAL FINDINGS OF BLOOD CHEMISTRY Status: Acute Priority: High Current Visit: No (2) Alcoholic liver damage SNOMED Code(s): 83623602 ICD Code: K70.9 - ALCOHOLIC LIVER DISEASE, UNSPECIFIED Status: Acute Current Visit: No (3) Hypokalemia SNOMED Code(s): 15595230 ICD Code: E87.6 - HYPOKALEMIA Status: Acute Current Visit: No (4) Hypomagnesemia SNOMED Code(s): 509781356 ICD Code: E83.42 - HYPOMAGNESEMIA Status: Acute Current Visit: No (5) Hypophosphatemia SNOMED Code(s): 1464184 ICD Code: E83.39 - OTHER DISORDERS OF PHOSPHORUS METABOLISM Status: Acute Current Visit: No (6) Nicotine addiction SNOMED Code(s): 84094086 ICD Code: F17.200 - NICOTINE DEPENDENCE, UNSPECIFIED, UNCOMPLICATED Status: Chronic Priority: Medium Current Visit: Yes Qualifiers: Nicotine product type: cigarettes Problem List Initiated/Reviewed/Updated: Yes Orders Last 24hrs: Active Orders 24 hr Category Date Time Status Admission Status [Patient Status] [ADT] Routine ADT 04/04/20 14:41 Active Cardiac Monitoring [RC] 08,14,20,02 Care 04/04/20 18:00 Active Influenza Vaccine Charge [RC] .DISCHARGE Care 04/04/20 16:30 Active Oxygen Therapy [RC] PRN Care 04/04/20 14:43 Active Up With Assistance [RC] ASDIRECTED Care 04/04/20 14:42 Active VTE/DVT Education [RC] DAILY Care 04/04/20 14:43 Active Vital Signs [RC] 00,04,08,12,16,20 Care 04/04/20 14:43 Active Regular Diet [DIET] Diet 04/04/20 Dinner Ordered CXR [Chest 2V] [CR] Routine Exams 04/05/20 11:26 Taken CULTURE MRSA SURVEY [RM] Routine Lab 04/04/20 15:41 Received Benzonatate [Tessalon Perles] Med 04/05/20 01:20 Active 100 mg PO QID PRN Cetirizine [ZyrTEC] Med 04/05/20 11:30 Active 10 mg PO DAILY Enoxaparin [Lovenox] Med 04/04/20 14:45 Active 40 mg SUBCUT DAILY Magnesium Sulfate/D5W [Magnesium Sulfate in D5W 100 Med 04/04/20 15:30 Active Premix] 1 gm IV DAILY Melatonin Med 04/05/20 11:24 Active 6 mg PO BEDTIME PRN NS + KCl 20mEq/L [Normal Saline with 20 mEq KCl] 1,000 Med 04/05/20 01:45 Active ml IV ASDIRECTED Nicotine [Habitrol] Med 04/04/20 14:45 Active 14 mg TRDERM DAILY Potassium Chloride Riders [KCl 10 MEQ in Water 50 ML] Med 04/04/20 20:00 Active 10 meq Premix Bag 1 bag IV TID Resuscitation Status Routine Resus Stat 04/04/20 14:42 Ordered Medication Orders Benzonatate (Tessalon Perles) 100 mg PO QID PRN PRN Reason: Cough Last Admin: 04/05/20 07:55 Dose: 100 mg Documented by: Admin: 04/05/20 01:49 Dose: 100 mg Documented by: OSCAR Cetirizine HCl (Zyrtec) 10 mg PO DAILY [facility] Last Admin: 04/05/20 12:02 Dose: 10 mg Documented by: GAURAV Enoxaparin Sodium (Lovenox) 40 mg SUBCUT DAILY [facility] Last Admin: 04/05/20 08:04 Dose: 40 mg Documented by: Admin: 04/04/20 16:05 Dose: 40 mg Documented by: CYNTHIA Potassium Chloride 10 meq/ (Premix) 50 mls @ 50 mls/hr IV TID [facility] Last Admin: 04/05/20 07:56 Dose: 20 mls/hr Documented by: Infusion: 04/05/20 04:45 Dose: 20 mls/hr Documented by: Admin: 04/05/20 02:15 Dose: 20 mls/hr Documented by: Infusion: 04/04/20 22:04 Dose: 20 mls/hr Documented by: Admin: 04/04/20 19:34 Dose: 20 mls/hr Documented by: TAWANA Potassium Chloride/Sodium Chloride (Normal Saline With 20 Meq Kcl) 1,000 mls @ 100 mls/hr IV ASDIRECTED [facility] Last Admin: 04/05/20 02:06 Dose: 100 mls/hr Documented by: OSCAR Magnesium Sulfate/Dextrose (Magnesium Sulfate In D5w 100 Premix) 1 gm IV DAILY [facility] Last Admin: 04/05/20 09:16 Dose: 1 gm Documented by: Admin: 04/04/20 16:11 Dose: 1 gm Documented by: CYNTHIA Melatonin (Melatonin) 6 mg PO BEDTIME PRN PRN Reason: Insomnia Nicotine (Habitrol) 14 mg TRDERM DAILY [facility] Last Admin: 04/05/20 08:01 Dose: 14 mg Documented by: Admin: 04/04/20 16:05 Dose: 14 mg Documented by: CYNTHIA Assessment/Plan Comment:: K replacement per protocol Mg and PO4 replacement IVF for hydration Electrolytes monitoring - Mortality Measure Prognosis:: Good
[2020-04-05] MEDS ORDERED: Amitriptyline 25 MG Tab PO PRN (13:24)
[2020-04-05] MEDS ORDERED: ALBUTEROL SULFATE IH PRN (13:24)
[2020-04-05] MEDS ORDERED: Esomeprazole 40 MG Cap PO PRN (13:24)
[2020-04-05] MEDS: guaiFENesin/Dextromethorphan 100-10 MG/5 ML Soln 10 ML Cup PO PRN ×2 (13:45→20:55)
[2020-04-05] MEDS: Methocarbamol 500 MG Tab PO SCH ×3 (13:56→19:46)
[2020-04-05] MEDS: DULoxetine 60 MG Cap PO SCH ×2 (13:56→14:12)
[2020-04-05] MEDS: Aspirin 81 MG Tab.EC PO SCH ×2 (13:56→14:12)
--- NOTE | 2020-04-05 16:47 | CR ---
Date of Service: 04/05/20 Clinical Data: cough PA AND LATERAL CHEST: Comparison is made to a prior exam dated 12/28/15. The heart size is normal. There is calcification of the aortic arch. There are healed rib fractures bilaterally with adjacent pleural thickening. The lungs are otherwise clear. No pneumothorax. No pleural effusions. No evidence of acute intrathoracic disease. [id number] [facility]
[2020-04-05] MEDS: Potassium Chloride 20 MEQ Tab.ER PO SCH ×2 (17:52→19:46)
[2020-04-05] MEDS: Magnesium Oxide 400 MG Tab PO SCH (17:52)
[2020-04-06] MEDS: guaiFENesin/Dextromethorphan 100-10 MG/5 ML Soln 10 ML Cup PO PRN ×3 (03:56→22:22)
[2020-04-06] MEDS: NS + KCl 20mEq/L 1,000 ML IV SCH ×2 (03:57→17:41)
[2020-04-06] MEDS: Levothyroxine 50 MCG Tab PO SCH (07:54)
[2020-04-06] MEDS: Methocarbamol 500 MG Tab PO SCH ×4 (07:54→19:44)
[2020-04-06] MEDS: DULoxetine 60 MG Cap PO SCH ×2 (07:54→09:59)
[2020-04-06] MEDS: Magnesium Oxide 400 MG Tab PO SCH (07:54)
[2020-04-06] MEDS: Cetirizine 10 MG Tab PO SCH ×2 (07:54→10:17)
[2020-04-06] MEDS: Potassium Chloride 20 MEQ Tab.ER PO SCH ×2 (07:55→19:45)
[2020-04-06] MEDS: Aspirin 81 MG Tab.EC PO SCH ×2 (07:55→10:00)
[2020-04-06] MEDS: Nicotine 14 MG/24 Hr Patch TRDERM SCH (07:55)
[2020-04-06] MEDS: Enoxaparin 40 MG/0.4 ML Syringe SUBCUT SCH (07:56)
[2020-04-06] MEDS: Magnesium Sulfate/D5W 1 GM/100 ML Premix Bag IV SCH (07:56)
[2020-04-06] MEDS ORDERED: Potassium Chloride Riders 50 ML ONE ×2 (08:06→14:21)
[2020-04-06] MEDS: [UNRECOGNIZED DRUG - OTHER] PO SCH ×3 (08:17→16:12)
[2020-04-06] MEDS ORDERED: Magnesium Sulfate/D5W 1 GM/100 ML Premix Bag IV STA (09:54)
[2020-04-06] MEDS ORDERED: Calcium Gluconate 10% 1 GM/10 ML SDV IVPUSH ONE (09:54)
[2020-04-06] MEDS: Potassium Chloride Riders 10 MEQ in Premix Bag 1 BAG IV SCH ×3 (10:09→19:42)
--- NOTE | 2020-04-06 11:47 | PCM.PN ---
- General Info Date of Service: 04/06/20 Admission Dx/Problem (Free Text): Admission Diagnosis/Problem Admission Diagnosis/Problem Hypokalemia Functional Status: Reports: Tolerating Diet, Ambulating. Denies: New Symptoms - Review of Systems General: Reports: No Symptoms HEENT: Reports: No Symptoms Pulmonary: Reports: No Symptoms Cardiovascular: Reports: No Symptoms Gastrointestinal: Reports: Diarrhea Genitourinary: Reports: No Symptoms Musculoskeletal: Reports: No Symptoms Skin: Reports: No Symptoms Neurological: Reports: No Symptoms - Patient Data Vitals - Most Recent: Last Vital Signs Temp 36.3 C 04/06/20 08:00 Pulse 67 04/06/20 08:00 Resp 16 04/06/20 08:00 BP 114/76 04/06/20 08:00 Pulse Ox 99 04/06/20 08:00 Weight - Most Recent: 43.545 kg I&O - Last 24 Hours: Intake & Output 04/05/20 04/06/20 04/06/20 22:59 06:59 14:59 Intake Total 2040 950 Output Total 1150 850 Balance 890 100 Lab Results Last 24 Hours: Laboratory Results - last 24 hr 04/06/20 04/06/20 Range/Units 07:20 07:20 Sodium 145 (136-145) mmol/L Potassium 1.9 L* D (3.5-5.1) mmol/L Chloride 112 H (98-107) mmol/L Carbon Dioxide 18.8 L (21.0-32.0) mmol/L Anion Gap 16.1 H (5.0-15.0) mmol/L BUN 11 D (8-26) mg/dL Creatinine 0.95 (0.55-1.02) mg/dL Est Cr Clr Drug Dosing 40.04 mL/min Estimated GFR (MDRD) 59 L (>60) MLS/MIN BUN/Creatinine Ratio 11.6 (6-25) Glucose 100 (74-100) mg/dL Calcium 6.1 L* (8.5-10.1) mg/dL Phosphorus 3.8 (2.5-4.9) mg/dL Magnesium 1.3 L (1.8-2.4) mg/dL Dong Results Last 24 Hours: Microbiology 04/04/20 15:41 MRSA Surveillance Culture - Final Nares, Left NO MRSA ISOLATED Med Orders - Current: Current Medications Amitriptyline HCl (Elavil) 25 mg PO BEDTIME PRN PRN Reason: Insomnia Aspirin (Halfprin) 81 mg PO DAILY [facility] Last Admin: 04/06/20 10:00 Dose: Not Given Documented by: Benzonatate (Tessalon Perles) 100 mg PO QID PRN PRN Reason: Cough Last Admin: 04/05/20 07:55 Dose: 100 mg Documented by: Cetirizine HCl (Zyrtec) 10 mg PO DAILY [facility] Last Admin: 04/06/20 10:17 Dose: 10 mg Documented by: Duloxetine HCl (Cymbalta) 120 mg PO DAILY [facility] Last Admin: 04/06/20 09:59 Dose: Not Given Documented by: Enoxaparin Sodium (Lovenox) 40 mg SUBCUT DAILY [facility] Last Admin: 04/06/20 07:56 Dose: 40 mg Documented by: Esomeprazole Magnesium (Nexium) 40 mg PO ACBREAKFAST PRN PRN Reason: Abdominal Pain Guaifenesin/Dextromethorphan (Robitussin Dm) 10 ml PO Q4H PRN PRN Reason: Cough Last Admin: 04/06/20 10:31 Dose: 10 ml Documented by: Potassium Chloride 10 meq/ (Premix) 50 mls @ 50 mls/hr IV TID [facility] Last Admin: 04/06/20 10:09 Dose: 50 mls/hr Documented by: Potassium Chloride/Sodium Chloride (Normal Saline With 20 Meq Kcl) 1,000 mls @ 100 mls/hr IV ASDIRECTED [facility] Last Admin: 04/06/20 03:57 Dose: 100 mls/hr Documented by: Levothyroxine Sodium (Synthroid) 50 mcg PO ACBREAKFAST [facility] Last Admin: 04/06/20 07:54 Dose: 50 mcg Documented by: Magnesium Sulfate/Dextrose (Magnesium Sulfate In D5w 100 Premix) 1 gm IV DAILY [facility] Last Admin: 04/06/20 07:56 Dose: 1 gm Documented by: Melatonin (Melatonin) 6 mg PO BEDTIME PRN PRN Reason: Insomnia Methocarbamol (Robaxin) 500 mg PO TID [facility] Last Admin: 04/06/20 08:57 Dose: Not Given Documented by: Nicotine (Habitrol) 14 mg TRDERM DAILY [facility] Last Admin: 04/06/20 07:55 Dose: 14 mg Documented by: Virt-Phos 250 (Neutral Tablet) 1 each PO QID [facility] Last Admin: 04/06/20 11:31 Dose: 1 each Documented by: Non-Formulary Medication (Albuterol Sulfate [Proair Respiclick]) 1 - 2 inh IH Q4H PRN PRN Reason: shortness of breath Potassium Chloride (Klor-Con M20) 20 meq PO BID [facility] Last Admin: 04/06/20 07:55 Dose: 20 meq Documented by: Discontinued Medications Calcium Gluconate (Calcium Gluconate) 1 gm IVPUSH ONETIME ONE Stop: 04/06/20 09:55 Last Admin: 04/06/20 10:25 Dose: 1 gm Documented by: Guaifenesin/Dextromethorphan (Robitussin Dm) 10 ml PO Q6H PRN PRN Reason: Cough Last Admin: 04/06/20 03:56 Dose: 10 ml Documented by: Lactated Ringer's (Ringers, Lactated) 1,000 mls @ 100 mls/hr IV ASDIRECTED [facility] Last Admin: 04/04/20 14:02 Dose: 100 mls/hr Documented by: Potassium Chloride 10 meq/ (Premix) 50 mls @ 50 mls/hr IV ONETIME ONE Stop: 04/04/20 15:29 Last Admin: 04/04/20 14:36 Dose: 50 mls/hr Documented by: Sodium Chloride (Normal Saline) 1,000 mls @ 75 mls/hr IV ASDIRECTED [facility] Last Admin: 04/04/20 14:36 Dose: 75 mls/hr Documented by: Potassium Chloride (Kcl 10 Meq In Water 50 Ml) Confirm Administered Dose 50 mls @ as directed .ROUTE .STK-MED ONE Stop: 04/04/20 19:13 Last Admin: 04/04/20 20:21 Dose: Not Given Documented by: Potassium Chloride/Sodium Chloride (Normal Saline With 20 Meq Kcl) Confirm Administered Dose 1,000 mls @ as directed .ROUTE .STK-MED ONE Stop: 04/05/20 01:45 Last Admin: 04/05/20 02:08 Dose: Not Given Documented by: Potassium Chloride (Kcl 10 Meq In Water 50 Ml) Confirm Administered Dose 50 mls @ as directed .ROUTE .STK-MED ONE Stop: 04/05/20 01:46 Last Admin: 04/05/20 02:09 Dose: Not Given Documented by: Potassium Phosphate 20 mmole/ (Sodium Chloride) 256.6667 mls @ 85.556 mls/hr IV ONETIME [facility] Potassium Chloride (Kcl 10 Meq In Water 50 Ml) Confirm Administered Dose 50 mls @ as directed .ROUTE .STK-MED ONE Stop: 04/05/20 19:33 Last Admin: 04/05/20 19:45 Dose: Not Given Documented by: Potassium Chloride (Kcl 10 Meq In Water 50 Ml) Confirm Administered Dose 50 mls @ as directed .ROUTE .STK-MED ONE Stop: 04/06/20 08:07 Last Admin: 04/06/20 10:44 Dose: Not Given Documented by: Influenza Virus Vaccine (Pharmacy To Dose - Influenza Vaccine) 1 each IM ONETIME ONE Stop: 04/04/20 16:31 Influenza Virus Vaccine (Fluad Quad Syringe) 60 mcg IM .ONCE ONE Stop: 04/04/20 17:01 Last Admin: 04/05/20 10:48 Dose: Not Given Documented by: Magnesium Oxide (Magnesium Oxide) 400 mg PO DAILY [facility] Stop: 04/06/20 08:01 Last Admin: 04/06/20 07:54 Dose: 400 mg Documented by: Magnesium Sulfate/Dextrose (Magnesium Sulfate In D5w 100 Premix) 1 gm IV NOW STA Stop: 04/06/20 09:55 - Exam Quality Assessment: No: Supplemental Oxygen General: Alert, Oriented, Cooperative, No Acute Distress HEENT: Pupils Equal Lungs: Clear to Auscultation, Normal Respiratory Effort Cardiovascular: Regular Rate, Irregular Rhythm GI/Abdominal Exam: Normal Bowel Sounds, Non-Tender, No Distention Back Exam: Normal Inspection, Full Range of Motion Neurological: No New Focal Deficit Psy/Mental Status: Alert, Normal Affect, Normal Mood Sepsis Event Note - Evaluation Sepsis Screening Result: No Definite Risk - Focused Exam Vital Signs: Vital Signs Temp Pulse Resp BP Pulse Ox 04/06/20 08:00 36.3 C 67 16 114/76 99 04/06/20 04:00 36.6 C 81 20 120/88 99 04/06/20 00:00 36.6 C 80 20 112/84 98 - Problem List & Annotations (1) Increased ammonia level SNOMED Code(s): 691963542, 487890651, 550332876 Code(s): R79.89 - OTHER SPECIFIED ABNORMAL FINDINGS OF BLOOD CHEMISTRY Status: Acute Priority: Medium Current Visit: No (2) Alcoholic liver damage SNOMED Code(s): 31253601 Code(s): K70.9 - ALCOHOLIC LIVER DISEASE, UNSPECIFIED Status: Acute Priority: Low Current Visit: No (3) Hypokalemia SNOMED Code(s): 19263539 Code(s): E87.6 - HYPOKALEMIA Status: Acute Priority: Medium Current Visit: Yes (4) Hypomagnesemia SNOMED Code(s): 346569928 Code(s): E83.42 - HYPOMAGNESEMIA Status: Acute Priority: Medium Current Visit: Yes (5) Hypophosphatemia SNOMED Code(s): 3171872 Code(s): E83.39 - OTHER DISORDERS OF PHOSPHORUS METABOLISM Status: Acute Priority: Medium Current Visit: Yes (6) Nicotine addiction SNOMED Code(s): 75122281 Code(s): F17.200 - NICOTINE DEPENDENCE, UNSPECIFIED, UNCOMPLICATED Status: Chronic Priority: Medium Current Visit: Yes Qualifiers: Nicotine product type: cigarettes - Problem List Review Problem List Initiated/Reviewed/Updated: Yes - My Orders Last 24 Hours: My Active Orders 04/05/20 11:24 Melatonin 6 mg PO BEDTIME PRN 04/05/20 11:30 Cetirizine [ZyrTEC] 10 mg PO DAILY 04/05/20 12:00 Non-Formulary Medication [NF Drug] 1 each PO QID 04/05/20 13:24 Albuterol Sulfate [Proair Respiclick] 1 - 2 inh IH Q4H PRN Amitriptyline [Elavil] 25 mg PO BEDTIME PRN Esomeprazole [NexIUM] 40 mg PO ACBREAKFAST PRN 04/05/20 13:30 Aspirin [Halfprin] 81 mg PO DAILY DULoxetine [Cymbalta] 120 mg PO DAILY 04/05/20 14:00 methocarbamoL [Robaxin] 500 mg PO TID 04/05/20 17:45 Potassium Chloride [Klor-Con M20] 20 meq PO BID 04/06/20 07:00 Levothyroxine [Synthroid] 50 mcg PO ACBREAKFAST 04/06/20 10:08 Dextromethorphan/guaiFENesin [Robitussin DM] 10 ml PO Q4H PRN 04/06/20 15:00 BASIC METABOLIC PANEL,BMP [CHEM] Routine MAGNESIUM [CHEM] Routine 04/06/20 15:04 PHOSPHORUS [CHEM] Routine - Plan Plan:: 1- acute hypokalemia- K replacement per protocol 2- acute hypomagnesemia and hypo-phosphatemia: Mg and PO4 replacement daily 3- mild dehydration: IVF for hydration daily Electrolytes monitoring 4- loose stool - r/u c.diff 5- meds non-compliance: education and reminder 6- daily alcohol abuse: e/o alcoholic hepatitis and hyperammonemia: will monitor for signs of alcohol withdrawal. Didn't require any benzo so far 7- nicotine addiction: educational materials. Nicotine replacement patch 8- cough: chronic in nature. CXR and COVID negative. Improving with anti-cough syrup. 9- new-onset afib w CVR: not on blood thinners due to h/o recent GI surgery and bleeding ( several months ago ). Discussed her case with the PCP Dr. Luo, we both agreed to start her on ASA 81mg for now.
[2020-04-06] MEDS: Potassium Chloride Riders 50 ML ONE ×2 (19:40→19:41)
[2020-04-06] MEDS ORDERED: Loperamide 2 MG Cap PO PRN (20:19)
[2020-04-07] MEDS: guaiFENesin/Dextromethorphan 100-10 MG/5 ML Soln 10 ML Cup PO PRN (03:00)
[2020-04-07] MEDS: Potassium Chloride Riders 10 MEQ in Premix Bag 1 BAG IV SCH ×2 (05:56→09:19)
[2020-04-07] MEDS: NS + KCl 20mEq/L 1,000 ML IV SCH (06:18)
[2020-04-07] MEDS: Levothyroxine 50 MCG Tab PO SCH (07:11)
[2020-04-07] MEDS: Nicotine 14 MG/24 Hr Patch TRDERM SCH (08:00)
[2020-04-07] MEDS: Enoxaparin 40 MG/0.4 ML Syringe SUBCUT SCH (08:01)
[2020-04-07] MEDS: Potassium Chloride 20 MEQ Tab.ER PO SCH (08:04)
[2020-04-07] MEDS: Aspirin 81 MG Tab.EC PO SCH (08:04)
[2020-04-07] MEDS: DULoxetine 60 MG Cap PO SCH (08:05)
[2020-04-07] MEDS: Cetirizine 10 MG Tab PO SCH (08:05)
[2020-04-07] MEDS: Methocarbamol 500 MG Tab PO SCH (08:06)
[2020-04-07] MEDS: Magnesium Sulfate/D5W 1 GM/100 ML Premix Bag IV SCH (08:14)
[2020-04-07] MEDS ORDERED: Potassium Chloride Riders 50 ML ONE (09:17)
[2020-04-07 11:52] VITALS: BP 108/72; PULSE 70
--- NOTE | 2020-04-07 13:54 | DISCH ---
HOSPITAL COURSE: This 64-year-old lady was admitted for hypokalemia and hypomagnesium. She has been here for a couple of days. Her lab results have been steadily improving. Her admitting K level was 1.3. Potassium level today is 3.2. Magnesium level is now 1.8. The patient states she is feeling fine. She has been eating good and she wants to go home. Vital signs are reviewed today. Blood pressure 108/72, pulse 84, respirations 20, temp 98.2. The patient will be discharged home. She tells me that she got into trouble because she was not taking her medications, but she agrees to do so going forward. The patient has no further questions. CRS/MODL /[id number]
== END 2020-04-07 13:40 | disposition home or self-care (01) | DRG 641 ==
LOC: LB.ED 13:35 → LB.MS 14:41 → UNDOADMIN 14:56 → LB.MS 14:56
PROVIDERS: ADMIT Surgery; ATTEND Surgery
DX: E87.6 Hypokalemia (principal); I48.19 Other persistent atrial fibrillation; E83.42 Hypomagnesemia; R53.1 Weakness; R53.83 Other fatigue; H54.7 Unspecified visual loss; I10 Essential (primary) hypertension; J45.909 Unspecified asthma, uncomplicated; K21.9 Gastro-esophageal reflux disease without esophagitis; Z20.828 Contact with and (suspected) exposure to other viral communicable diseases; M19.90 Unspecified osteoarthritis, unspecified site; F41.9 Anxiety disorder, unspecified; F32.9 Major depressive disorder, single episode, unspecified; F17.200 Nicotine dependence, unspecified, uncomplicated; E03.9 Hypothyroidism, unspecified; M81.0 Age-related osteoporosis without current pathological fracture; R79.89 Other specified abnormal findings of blood chemistry; Z91.048 Other nonmedicinal substance allergy status; K70.9 Alcoholic liver disease, unspecified; E83.39 Other disorders of phosphorus metabolism; E86.0 Dehydration; F10.10 Alcohol abuse, uncomplicated; Z91.09 Other allergy status, other than to drugs and biological substances; Z88.8 Allergy status to other drugs, medicaments and biological substances; Z79.890 Hormone replacement therapy; Z79.899 Other long term (current) drug therapy; Z91.14 Patient's other noncompliance with medication regimen
CPT/HCPCS: 36415; 71046; 80048; 80053; 81001; 82140; 83735; 84100; 84132; 84443; 85025; 85610; 87493; 93005; 96374; 99285-25; A9270-GY; J0610; J1650; J3475; J3480; J7030; J7120; U0002

== ENCOUNTER 2021-04-26 13:11 | Emergency (ER) | payer MEDICARE, BC, OTHER ==
[2021-04-26 17:13] VITALS: BP 119/74
[2021-04-26 18:31] VITALS: PULSE 76
== END 2021-04-26 19:16 | disposition home or self-care (01) ==
LOC: LB.ED 13:11
DX: K70.31 Alcoholic cirrhosis of liver with ascites (principal); I48.91 Unspecified atrial fibrillation; I10 Essential (primary) hypertension; K21.9 Gastro-esophageal reflux disease without esophagitis; E03.9 Hypothyroidism, unspecified; M19.90 Unspecified osteoarthritis, unspecified site; Z91.048 Other nonmedicinal substance allergy status; Z88.8 Allergy status to other drugs, medicaments and biological substances; Z79.899 Other long term (current) drug therapy
CPT/HCPCS: 36415; 49083; 51702; 74176; 80053; 81001; 83605; 83690; 85025; 99284-25; 99285

== ENCOUNTER 2021-05-31 16:48 | Emergency (ER) | payer MEDICARE, BC, OTHER ==
[2021-05-31 18:29] VITALS: BP 119/82; PULSE 83
== END 2021-05-31 18:35 | disposition home or self-care (01) ==
LOC: LB.ED 16:48
DX: K70.31 Alcoholic cirrhosis of liver with ascites (principal); I48.91 Unspecified atrial fibrillation; I10 Essential (primary) hypertension; K21.9 Gastro-esophageal reflux disease without esophagitis; E03.9 Hypothyroidism, unspecified; Z91.048 Other nonmedicinal substance allergy status; Z79.899 Other long term (current) drug therapy
CPT/HCPCS: 99283

== ENCOUNTER 2021-06-15 18:12 | Emergency (ER) | payer MEDICARE, BC, OTHER ==
[2021-06-15 18:41] VITALS: PULSE 100
== END 2021-06-15 19:38 | disposition home or self-care (01) ==
LOC: LB.ED 18:12
DX: K74.60 Unspecified cirrhosis of liver (principal); R18.8 Other ascites
CPT/HCPCS: 49083; 99283-25

== ENCOUNTER 2021-06-24 17:40 | Emergency (ER) | payer MEDICARE, BC, OTHER | END 2021-06-24 19:13 | disposition home or self-care (01) | LOC: LB.ED 17:40 | DX: K70.31 Alcoholic cirrhosis of liver with ascites (principal); I48.91 Unspecified atrial fibrillation; I10 Essential (primary) hypertension; K21.9 Gastro-esophageal reflux disease without esophagitis; Z91.048 Other nonmedicinal substance allergy status; Z88.8 Allergy status to other drugs, medicaments and biological substances; Z79.899 Other long term (current) drug therapy | CPT/HCPCS: 36415; 49083; 80048; 85025; 87070; 87205; 99284 ==

== ENCOUNTER 2021-08-04 10:22 | Emergency (ER) | payer MEDICARE, BC, OTHER ==
[2021-08-04 11:30] VITALS: BP 103/75; PULSE 75
[2021-08-04] MEDS ORDERED: Ketorolac 30 MG/ML SDV IM ONE (11:50)
[2021-08-04] MEDS ORDERED: Ketorolac 30 MG/ML SDV ONE (12:01)
== END 2021-08-04 12:48 | disposition home or self-care (01) ==
LOC: LB.ED 10:22
DX: R10.84 Generalized abdominal pain (principal); J45.909 Unspecified asthma, uncomplicated; I10 Essential (primary) hypertension; E03.9 Hypothyroidism, unspecified; K21.9 Gastro-esophageal reflux disease without esophagitis; Z88.8 Allergy status to other drugs, medicaments and biological substances; Z90.710 Acquired absence of both cervix and uterus
CPT/HCPCS: 36415; 74176; 80048; 81001; 83605; 85025; 87086; 87088; 87186; 96372; 99284; J1885

== ENCOUNTER 2021-10-05 19:08 | Emergency (ER) | payer MEDICARE, BC, OTHER ==
[2021-10-05 19:29] VITALS: BP 102/81; PULSE 98
[2021-10-05] MEDS ORDERED: Ketorolac 30 MG/ML SDV IM ONE (19:36)
[2021-10-05] MEDS ORDERED: Ketorolac 60 MG/2 ML SDV IVPUSH ONE (20:16)
== END 2021-10-05 21:45 | disposition home or self-care (01) ==
LOC: LB.ED 19:08
DX: K70.31 Alcoholic cirrhosis of liver with ascites (principal); I48.91 Unspecified atrial fibrillation; I10 Essential (primary) hypertension; K21.9 Gastro-esophageal reflux disease without esophagitis; E03.9 Hypothyroidism, unspecified; M19.90 Unspecified osteoarthritis, unspecified site; Z91.048 Other nonmedicinal substance allergy status; Z88.0 Allergy status to penicillin; Z88.8 Allergy status to other drugs, medicaments and biological substances; Z79.899 Other long term (current) drug therapy
CPT/HCPCS: 36415; 74176; 80053; 82150; 83605; 85025; 96374; 99283; 99284; J1885

== ENCOUNTER 2021-10-17 18:26 | Emergency (ER) | payer MEDICARE, BC, OTHER ==
[2021-10-17] MEDS ORDERED: Sodium Chloride 0.9% 1,000 ML IV ONE (18:41)
[2021-10-17] MEDS ORDERED: HYDROmorphone 2 MG/ML Syringe IVPUSH ONE (18:43)
[2021-10-17] MEDS ORDERED: HYDROmorphone 2 MG/ML Syringe ONE (19:21)
[2021-10-17] MEDS ORDERED: NS + KCl 20mEq/L 1,000 ML ONE (19:27)
[2021-10-17] MEDS ORDERED: NS + KCl 20mEq/L 1,000 ML IV SCH (19:30)
[2021-10-17] MEDS ORDERED: Potassium Chloride Riders 50 ML ONE (20:02)
[2021-10-17] MEDS ORDERED: Naloxone 2 MG/2 ML Syringe ONE (21:12)
[2021-10-17] MEDS ORDERED: Potassium Chloride Riders 10 MEQ in Premix Bag 1 BAG IV ONE (21:30)
[2021-10-17] MEDS ORDERED: methylPREDNISolone Sodium Succinate 125 MG/2 ML SDV IVPUSH ONE (22:03)
[2021-10-17] MEDS ORDERED: Magnesium Sulfate/D5W 1 GM/100 ML Premix Bag IV ONE (22:05)
[2021-10-17] MEDS ORDERED: methylPREDNISolone Sodium Succinate 125 MG/2 ML SDV ONE (22:16)
[2021-10-17 23:05] VITALS: BP 74/56; PULSE 99
[2021-11-07] MEDS ORDERED: Naloxone 2 MG/2 ML Syringe IVPUSH PRN (13:21)
== END 2021-10-17 23:30 | disposition home or self-care (01) ==
LOC: LB.ED 18:26
DX: I95.9 Hypotension, unspecified (principal); E87.8 Other disorders of electrolyte and fluid balance, not elsewhere classified; J45.909 Unspecified asthma, uncomplicated; I10 Essential (primary) hypertension; F17.210 Nicotine dependence, cigarettes, uncomplicated; Z91.048 Other nonmedicinal substance allergy status; Z88.8 Allergy status to other drugs, medicaments and biological substances; Z88.0 Allergy status to penicillin; Z79.899 Other long term (current) drug therapy; Z90.710 Acquired absence of both cervix and uterus
CPT/HCPCS: 36415; 74176; 80048; 80053; 81001; 83690; 83735; 85025; 93005; 93010; 96361; 96365; 96366; 96367; 96375; 99283; 99284; J1170; J2310; J2930; J3475; J3480; J7030

== ENCOUNTER 2022-01-14 22:05 | Emergency (ER) | payer MEDICARE, BC, OTHER ==
[2022-01-14] MEDS ORDERED: fentaNYL 100 MCG/2 ML SDV IM ONE (22:15)
[2022-01-14] MEDS ORDERED: HYDROmorphone 2 MG/ML SDV IM ONE (22:55)
[2022-01-14] MEDS ORDERED: Acetaminophen/oxyCODONE 325-5 MG Tab ONE (23:00)
[2022-01-14] MEDS ORDERED: Acetaminophen/HYDROcodone 325-10 MG Tab PO ONE (23:53)
[2022-01-14] MEDS ORDERED: Ketorolac 60 MG/2 ML SDV IM ONE (23:53)
[2022-01-15 00:04] VITALS: PULSE 64
[2022-01-15 02:04] VITALS: BP 101/64
== END 2022-01-15 01:17 | disposition home or self-care (01) ==
LOC: LB.ED 22:05
DX: S42.211A Unspecified displaced fracture of surgical neck of right humerus, initial encounter for closed fracture (principal); I48.91 Unspecified atrial fibrillation; I10 Essential (primary) hypertension; K21.9 Gastro-esophageal reflux disease without esophagitis; Z91.048 Other nonmedicinal substance allergy status; Z88.0 Allergy status to penicillin; Z88.8 Allergy status to other drugs, medicaments and biological substances; Z79.899 Other long term (current) drug therapy; W18.30XA Fall on same level, unspecified, initial encounter
CPT/HCPCS: 73030; 73560; 73610; 73620; 96372; 99283; A9270; J1170; J1885; J3010

== ENCOUNTER 2022-05-20 19:36 | Emergency (ER) | payer MEDICARE, BC, OTHER ==
[2022-05-20 19:47] VITALS: BP 115/82; PULSE 107
[2022-05-20] MEDS: methylPREDNISolone Sodium Succinate 125 MG/2 ML SDV IM ONE (20:16)
[2022-05-20] MEDS: methylPREDNISolone Sodium Succinate 125 MG/2 ML SDV ONE (20:23)
[2022-05-20] MEDS ORDERED: Hydrocortisone Acetate 1% Crm 30 GM Tube ONE (21:00)
[2022-05-20] MEDS: Cetirizine 10 MG Tab PO ONE (21:03)
== END 2022-05-20 21:22 | disposition home or self-care (01) ==
LOC: LB.ED 19:36
DX: L50.8 Other urticaria (principal); I48.91 Unspecified atrial fibrillation; I10 Essential (primary) hypertension; J45.909 Unspecified asthma, uncomplicated; K21.9 Gastro-esophageal reflux disease without esophagitis; M19.90 Unspecified osteoarthritis, unspecified site; E03.9 Hypothyroidism, unspecified; Z91.048 Other nonmedicinal substance allergy status; Z88.8 Allergy status to other drugs, medicaments and biological substances; Z88.0 Allergy status to penicillin; Z88.1 Allergy status to other antibiotic agents; Z79.899 Other long term (current) drug therapy
CPT/HCPCS: 96372; 99283; A9270-GY; J2930

== ENCOUNTER 2022-09-09 19:25 | Emergency (ER) | payer MEDICARE, BC, OTHER ==
[2022-09-09 20:16] VITALS: BP 86/51; PULSE 126
== END 2022-09-09 20:30 | disposition home or self-care (01) ==
LOC: LB.ED 19:25
DX: S61.211A Laceration without foreign body of left index finger without damage to nail, initial encounter (principal); I10 Essential (primary) hypertension; K21.9 Gastro-esophageal reflux disease without esophagitis; I48.91 Unspecified atrial fibrillation; J45.909 Unspecified asthma, uncomplicated; M19.90 Unspecified osteoarthritis, unspecified site; E03.9 Hypothyroidism, unspecified; F17.210 Nicotine dependence, cigarettes, uncomplicated; Z91.048 Other nonmedicinal substance allergy status; Z88.8 Allergy status to other drugs, medicaments and biological substances; Z88.0 Allergy status to penicillin; Z79.899 Other long term (current) drug therapy; W26.0XXA Contact with knife, initial encounter
CPT/HCPCS: 99282

== ENCOUNTER 2022-10-17 16:01 | Emergency (ER) | payer MEDICARE, BC ==
[2022-10-17 17:22] LABS: BASOPHILS ABSOLUTE AUTO 0.01 K/uL (0.02-0.10); BASOPHILS PERCENT AUTO 0.1 % (0.0-0.5); EOSINOPHILS ABSOLUTE AUTO 0.03 K/uL (0.04-0.40); EOSINOPHILS PERCENT AUTO 0.4 % (1.0-5.0); HEMATOCRIT 40.6 % (37.0-47.0); LYMPHOCYTES PERCENT AUTO 12.7 % (20.0-40.0); MEAN CORPUSCULAR HEMOGLOBIN 34.5 pg (27.0-32.0); MEAN CORPUSCULAR HGB CONC 34.5 g/dL (31.0-35.0); MEAN CORPUSCULAR VOLUME 100 fL (76-96); MEAN PLATELET VOLUME 9.4 fL (6.0-10.0); MONOCYTES ABSOLUTE AUTO 0.51 K/uL (0.20-0.80); MONOCYTES PERCENT AUTO 7.2 % (3.0-10.0); NEUTROPHILS ABSOLUTE AUTO 5.62 K/uL (2.00-7.50); NEUTROPHILS PERCENT AUTO 79.6 % (45.0-70.0); PLATELET COUNT,PLT 238 K/uL (150-500); RED BLOOD CELL COUNT 4.06 M/uL (3.80-5.80); RED CELL DISTRIBUTION WIDTH 15.4 % (11.0-16.0); WHITE BLOOD CELL COUNT,WBC 7.1 K/uL (4.0-11.0)
[2022-10-17] MEDS: Sodium Chloride 0.9% 1,000 ML IV ONE (17:25)
[2022-10-17] MEDS: Pantoprazole 40 MG Vial IVPUSH ONE (17:31)
[2022-10-17] MEDS: GI Cocktail Oral Solution 30 ML PO ONE (17:34)
[2022-10-17 17:38] LABS: ALBUMIN 3.3 g/dL (3.4-5.0); ANION GAP 23.6 mmol/L (5.0-15.0); BILIRUBIN TOTAL 1.1 mg/dL (0.0-1.0); BUN/CREATININE RATIO 13.9 (6-25); CALCIUM 8.6 mg/dL (8.5-10.1); CARBON DIOXIDE,CO2 16.7 mmol/L (21.0-32.0); CREATININE 1.65 mg/dL (0.55-1.02); EST CRCL DRUG DOSING (CG) 23.23 mL/min; PROTEIN TOTAL,TP 8.4 g/dL (6.4-8.2)
[2022-10-17 17:39] LABS: A/G RATIO 0.7 (0.8-2.0)
[2022-10-17 17:40] LABS: POTASSIUM,K 2.3 mmol/L (3.5-5.1)
[2022-10-17] MEDS: NS + KCl 20mEq/L 1,000 ML IV SCH (17:50)
[2022-10-17] MEDS: Ketorolac 30 MG/ML SDV IVPUSH ONE (17:53)
[2022-10-17] MEDS: Magnesium Sulfate/Water 2 GM in Premix Bag 1 BAG IV ONE (18:08)
[2022-10-17] MEDS: Magnesium Sulfate/Water 50 ML ONE (18:15)
[2022-10-17] MEDS: Ketorolac 30 MG/ML SDV ONE (18:15)
[2022-10-17] MEDS: Pantoprazole 40 MG Vial ONE (18:15)
[2022-10-17] MEDS: Potassium Chloride 10 MEQ Tab.ER PO ONE (19:39)
[2022-10-17 20:29] VITALS: BP 115/79; PULSE 96
== END 2022-10-17 20:15 | disposition home or self-care (01) ==
LOC: LB.ED 16:01
DX: K21.00 Gastro-esophageal reflux disease with esophagitis, without bleeding (principal); E87.6 Hypokalemia; E83.42 Hypomagnesemia; I48.91 Unspecified atrial fibrillation; I10 Essential (primary) hypertension; E03.9 Hypothyroidism, unspecified; Z91.048 Other nonmedicinal substance allergy status; Z88.0 Allergy status to penicillin; Z88.8 Allergy status to other drugs, medicaments and biological substances; Z79.899 Other long term (current) drug therapy; Z72.0 Tobacco use
CPT/HCPCS: 36415; 80053; 83690; 83735; 85025; 96365; 96366; 96368; 96375; 99284-25; A9270-GY; C9113; J1885; J3475; J3480; J7030

== ENCOUNTER 2023-03-09 03:52 | Observation (INO) | payer MEDICARE, BC, OTHER ==
[2023-03-09 04:41] LABS: BASOPHILS ABSOLUTE AUTO 0.01 K/uL (0.02-0.10); BASOPHILS PERCENT AUTO 0.2 % (0.0-0.5); EOSINOPHILS ABSOLUTE AUTO 0.11 K/uL (0.04-0.40); HEMATOCRIT 37.8 % (37.0-47.0); HEMOGLOBIN 12.7 g/dL (11.5-16.5); LYMPHOCYTES ABSOLUTE AUTO 1.16 K/uL (1.50-4.00); LYMPHOCYTES PERCENT AUTO 20.9 % (20.0-40.0); MEAN CORPUSCULAR HEMOGLOBIN 32.6 pg (27.0-32.0); MEAN CORPUSCULAR HGB CONC 33.6 g/dL (31.0-35.0); MEAN CORPUSCULAR VOLUME 97 fL (76-96); MEAN PLATELET VOLUME 9.6 fL (6.0-10.0); NEUTROPHILS ABSOLUTE AUTO 3.77 K/uL (2.00-7.50); NEUTROPHILS PERCENT AUTO 67.9 % (45.0-70.0); PLATELET COUNT,PLT 202 K/uL (150-500); RED BLOOD CELL COUNT 3.89 M/uL (3.80-5.80); RED CELL DISTRIBUTION WIDTH 15.8 % (11.0-16.0); WHITE BLOOD CELL COUNT,WBC 5.6 K/uL (4.0-11.0)
[2023-03-09 04:54] LABS: A/G RATIO 0.6 (0.8-2.0); ALBUMIN 2.4 g/dL (3.4-5.0); ANION GAP 18.2 mmol/L (5.0-15.0); BILIRUBIN TOTAL 0.7 mg/dL (0.0-1.0); BUN/CREATININE RATIO 12.3 (6-25); CALCIUM 8.3 mg/dL (8.5-10.1); CARBON DIOXIDE,CO2 19.4 mmol/L (21.0-32.0); CREATININE 1.06 mg/dL (0.55-1.02); EST CRCL DRUG DOSING (CG) 38.38 mL/min; POTASSIUM,K 3.6 mmol/L (3.5-5.1); PROTEIN TOTAL,TP 6.8 g/dL (6.4-8.2)
[2023-03-09] MEDS ORDERED: Bisacodyl 10 MG Supp RECTAL ONE (05:09)
[2023-03-09] MEDS ORDERED: Sodium Phosphate,Monobasic/Sodium Phosphate,Dibasic Enema 133 ML Bottle RECTAL ONE (06:15)
[2023-03-09] MEDS ORDERED: Sodium Phosphate,Monobasic/Sodium Phosphate,Dibasic Enema 133 ML Bottle RECTAL SCH (09:00)
[2023-03-09] MEDS ORDERED: TACROLIMUS TP PRN (12:43)
[2023-03-09] MEDS ORDERED: Albuterol 90 MCG/6.7 GM Inhaler INH PRN (12:43)
[2023-03-09] MEDS ORDERED: DOXEPIN 50 MG PO PRN (12:43)
[2023-03-09] MEDS ORDERED: hydrOXYzine HCl 25 MG Tab PO PRN (12:43)
[2023-03-09] MEDS ORDERED: Acetaminophen/HYDROcodone 325-5 MG Tab PO PRN (12:43)
[2023-03-09] MEDS: Sodium Chloride 0.9% 1,000 ML IV SCH (14:31)
[2023-03-09] MEDS ORDERED: Amitriptyline 25 MG Tab PO SCH (20:00)
[2023-03-09] MEDS ORDERED: LORazepam 1 MG Tab PO ONE (20:20)
[2023-03-10] MEDS: Sodium Chloride 0.9% 1,000 ML IV SCH (00:35)
[2023-03-10] MEDS ORDERED: Levothyroxine 50 MCG Tab PO SCH (07:00)
[2023-03-10] MEDS ORDERED: Non-Formulary Medication 1 Each (Omeprazole [Omeprazole] 40 MG Capsule.Dr) PO SCH (08:00)
[2023-03-10] MEDS ORDERED: Omeprazole 20 MG Cap.CR PO SCH (08:00)
[2023-03-10] MEDS ORDERED: Sulfamethoxazole/Trimethoprim 800-160 MG Tab PO SCH (08:00)
[2023-03-10 10:08] VITALS: BP 120/87; PULSE 83
== END 2023-03-10 10:05 | disposition home or self-care (01) ==
LOC: LB.ED 03:52 → LB.MS 07:46
PROVIDERS: ADMIT Surgery; ATTEND Surgery
DX: K56.609 Unspecified intestinal obstruction, unspecified as to partial versus complete obstruction (principal); I50.9 Heart failure, unspecified; I48.91 Unspecified atrial fibrillation; K21.9 Gastro-esophageal reflux disease without esophagitis; Z79.899 Other long term (current) drug therapy; Z88.8 Allergy status to other drugs, medicaments and biological substances
CPT/HCPCS: 36415; 71045; 74176; 80053; 83690; 85025; 96360; 96361; 99223; 99238; 99285; A9270-GY; G0378; J7030

== ENCOUNTER 2023-07-25 14:41 | Emergency (ER) | payer MEDICARE, BC ==
[2023-07-25] MEDS ORDERED: Sodium Chloride 0.9% 10 ML Syringe FLUSH PRN (15:56)
[2023-07-25 16:32] LABS: APPEARANCE,URINE CLOUDY (CLEAR); BILIRUBIN,URINE NEGATIVE (NEGATIVE); COLOR,URINE YELLOW; GLUCOSE,URINE NEGATIVE (NEGATIVE); KETONES,URINE NEGATIVE (NEGATIVE); LEUKOCYTE ESTERASE,URINE TRACE (NEGATIVE); NITRITE,URINE NEGATIVE (NEGATIVE); OCCULT BLOOD,URINE TRACE-INTACT (NEGATIVE); PROTEIN,URINE 100 mg/dL (NEGATIVE); UROBILINOGEN,URINE 0.2 E.U./dL (0.2-1.0)
[2023-07-25 16:40] LABS: RBC,URINE 0-5 /HPF; SQUAMOUS EPITHELIAL CELLS,UR FEW /HPF
[2023-07-25 17:13] LABS: HEMATOCRIT 33.2 % (37.0-47.0); MEAN CORPUSCULAR HEMOGLOBIN 32.4 pg (27.0-32.0); MEAN CORPUSCULAR HGB CONC 33.1 g/dL (31.0-35.0); MEAN PLATELET VOLUME 8.8 fL (6.0-10.0); RED BLOOD CELL COUNT 3.39 M/uL (3.80-5.80); RED CELL DISTRIBUTION WIDTH 18.4 % (11.0-16.0); WHITE BLOOD CELL COUNT,WBC 5.6 K/uL (4.0-11.0)
[2023-07-25 17:37] LABS: BASE EXCESS VENOUS -23.8 mm/L (-2-3); BICARBONATE,VENOUS 7.5 mmol/L (23.0-28.0); PCO2 VENOUS 30.4 mm/Hg (41-51)
[2023-07-25 17:55] LABS: ANION GAP 20.3 mmol/L (5.0-15.0); BUN/CREATININE RATIO 13.7 (6-25); CALCIUM 6.7 mg/dL (8.5-10.1); CREATININE 1.02 mg/dL (0.55-1.02); EST CRCL DRUG DOSING (CG) 36.75 mL/min; POTASSIUM,K 4.4 mmol/L (3.5-5.1); TROPONIN I HIGH SENSITIVITY 6.7 pg/ml (<=60.4)
[2023-07-25 17:58] LABS: CARBON DIOXIDE,CO2 9.1 mmol/L (21.0-32.0)
[2023-07-25 18:02] LABS: MAGNESIUM 0.9 mg/dL (1.8-2.4); PHOSPHORUS 3.6 mg/dL (2.5-4.9); TSH ULTRASENSITIVE 3.149 uIU/mL (0.358-3.740)
[2023-07-25 18:17] LABS: A/G RATIO 0.6 (0.8-2.0); ALBUMIN 2.4 g/dL (3.4-5.0); BILIRUBIN DIRECT 0.2 mg/dL (0.0-0.3); BILIRUBIN INDIRECT 0.3 mg/dL (<= 0.7); BILIRUBIN TOTAL 0.5 mg/dL (0.0-1.0); PROTEIN TOTAL,TP 6.5 g/dL (6.4-8.2)
[2023-07-25] MEDS: Magnesium Sulfate/Water 2 GM in Premix Bag 1 BAG IV ONE ×2 (18:26→18:27)
[2023-07-25] MEDS: Magnesium Sulfate/Water 50 ML ONE (18:27)
[2023-07-25 22:19] VITALS: BP 105/75; PULSE 95
== END 2023-07-25 21:50 | disposition home or self-care (01) ==
LOC: LB.ED 14:41
DX: I48.19 Other persistent atrial fibrillation (principal); E83.42 Hypomagnesemia; I10 Essential (primary) hypertension; J44.9 Chronic obstructive pulmonary disease, unspecified; K21.9 Gastro-esophageal reflux disease without esophagitis; E03.9 Hypothyroidism, unspecified; F17.210 Nicotine dependence, cigarettes, uncomplicated; Z90.710 Acquired absence of both cervix and uterus; Z79.51 Long term (current) use of inhaled steroids; Z88.0 Allergy status to penicillin; Z91.048 Other nonmedicinal substance allergy status; Z88.8 Allergy status to other drugs, medicaments and biological substances; Z79.899 Other long term (current) drug therapy
CPT/HCPCS: 36415; 80048; 80076; 80307; 81001; 81003; 82803; 83605; 83735; 84100; 84443; 84484; 85027; 87086; 93005; 96365; 96366; 99285; J3475

== ENCOUNTER 2023-08-25 14:27 | Emergency (ER) | payer MEDICARE, BC, OTHER ==
[2023-08-25 15:08] LABS: BASOPHILS ABSOLUTE AUTO 0.01 K/uL (0.02-0.10); BASOPHILS PERCENT AUTO 0.1 % (0.0-0.5); EOSINOPHILS ABSOLUTE AUTO 0.02 K/uL (0.04-0.40); EOSINOPHILS PERCENT AUTO 0.2 % (1.0-5.0); HEMATOCRIT 37.8 % (37.0-47.0); HEMOGLOBIN 12.8 g/dL (11.5-16.5); LYMPHOCYTES ABSOLUTE AUTO 0.72 K/uL (1.50-4.00); LYMPHOCYTES PERCENT AUTO 8.4 % (20.0-40.0); MEAN CORPUSCULAR HEMOGLOBIN 32.9 pg (27.0-32.0); MEAN CORPUSCULAR HGB CONC 33.9 g/dL (31.0-35.0); MEAN CORPUSCULAR VOLUME 97 fL (76-96); MONOCYTES ABSOLUTE AUTO 0.57 K/uL (0.20-0.80); MONOCYTES PERCENT AUTO 6.6 % (3.0-10.0); NEUTROPHILS ABSOLUTE AUTO 7.26 K/uL (2.00-7.50); NEUTROPHILS PERCENT AUTO 84.7 % (45.0-70.0); PLATELET COUNT,PLT 292 K/uL (150-500); RED BLOOD CELL COUNT 3.89 M/uL (3.80-5.80); RED CELL DISTRIBUTION WIDTH 16.7 % (11.0-16.0); WHITE BLOOD CELL COUNT,WBC 8.6 K/uL (4.0-11.0)
[2023-08-25 15:33] LABS: A/G RATIO 0.6 (0.8-2.0); ALBUMIN 2.7 g/dL (3.4-5.0); BILIRUBIN TOTAL 0.7 mg/dL (0.0-1.0); BUN/CREATININE RATIO 13.2 (6-25); CALCIUM 7.5 mg/dL (8.5-10.1); CREATININE 1.59 mg/dL (0.55-1.02); EST CRCL DRUG DOSING (CG) 21.22 mL/min; MAGNESIUM 1.1 mg/dL (1.8-2.4); POTASSIUM,K 3.5 mmol/L (3.5-5.1); PROTEIN TOTAL,TP 7.1 g/dL (6.4-8.2)
[2023-08-25 15:35] LABS: ANION GAP 23.9 mmol/L (5.0-15.0); CARBON DIOXIDE,CO2 10.6 mmol/L (21.0-32.0)
[2023-08-25] MEDS: Nystatin Susp 100,000 Unit/ML 5 ML UD Cup PO ONE (15:43)
[2023-08-25 15:51] LABS: CORONAVIRUS COVID-19 NAA NEGATIVE (NEGATIVE); INFLUENZA A NAA NEGATIVE (NEGATIVE); INFLUENZA B NAA NEGATIVE (NEGATIVE); RESPIRATORY SYNCYTIAL VIR NAA NEGATIVE (NEGATIVE)
[2023-08-25] MEDS ORDERED: Sodium Chloride 0.9% 10 ML Syringe FLUSH PRN (16:19)
[2023-08-25] MEDS: Fluconazole 150 MG Tab PO ONE (17:49)
[2023-08-25] MEDS: Magnesium Oxide 400 MG Tab PO ONE ×2 (17:50→17:53)
[2023-08-25] MEDS: Magnesium Oxide 400 MG Tab ONE ×2 (17:53→18:08)
[2023-08-25] MEDS: Magnesium Sulfate/Water 50 ML ONE (17:53)
[2023-08-25] MEDS: Fluconazole 150 MG Tab ONE (17:53)
[2023-08-25 18:08] VITALS: BP 99/71; PULSE 96
[2023-08-25] MEDS ORDERED: Magnesium Oxide 400 MG Tab ONE (19:13)
[2023-08-25] MEDS ORDERED: Fluconazole 150 MG Tab ONE (19:13)
[2023-08-27] MEDS: Magnesium Sulfate/Water 2 GM in Premix Bag 1 BAG IV ONE (10:08)
== END 2023-08-25 18:10 | disposition home or self-care (01) ==
LOC: LB.ED 14:27
DX: B37.0 Candidal stomatitis (principal); E83.42 Hypomagnesemia; K76.9 Liver disease, unspecified; N18.9 Chronic kidney disease, unspecified; I12.9 Hypertensive chronic kidney disease with stage 1 through stage 4 chronic kidney disease, or unspecified chronic kidney disease; J44.9 Chronic obstructive pulmonary disease, unspecified; Z91.048 Other nonmedicinal substance allergy status; Z88.1 Allergy status to other antibiotic agents; Z88.8 Allergy status to other drugs, medicaments and biological substances
CPT/HCPCS: 0241U; 36415; 80053; 83735; 85025; 87430; 99284; A9270

== ENCOUNTER 2023-10-09 13:29 | Inpatient (IN) | payer MEDICARE, BC, OTHER ==
[2023-10-09] MEDS ORDERED: DOCOSANOL TOP PRN (18:02)
[2023-10-09] MEDS ORDERED: Albuterol 6.7 GM Inhaler INH PRN (18:02)
[2023-10-09] MEDS ORDERED: Loperamide 2 MG Cap PO SCH (18:15)
[2023-10-09] MEDS: Amitriptyline 25 MG Tab PO SCH (20:50)
[2023-10-09] MEDS: Magnesium Oxide 400 MG Tab PO SCH (20:55)
[2023-10-09] MEDS: Midodrine 5 MG Tab PO SCH (20:55)
[2023-10-09] MEDS: Metoprolol Tartrate 25 MG Tab PO SCH (20:55)
[2023-10-09] MEDS: OLANZapine 5 MG Tab PO SCH (20:55)
[2023-10-09] MEDS: Loratadine 10 MG Tab PO SCH (20:55)
[2023-10-09] MEDS: Tuberculin, PPD 5 Units/0.1 ML 1 ML MDV IDERM ONE (21:43)
[2023-10-10] MEDS: Levothyroxine 50 MCG Tab PO SCH (08:21)
[2023-10-10] MEDS: Omeprazole 20 MG Cap.CR PO SCH (08:21)
[2023-10-10] MEDS: Potassium Chloride 20 MEQ Tab.ER PO SCH (08:22)
[2023-10-10] MEDS: Nicotine 14 MG/24 Hr Patch TOP SCH (08:22)
[2023-10-10] MEDS: Megestrol Susp 40 MG/ML ML (240 ML Bottle) PO SCH (08:26)
[2023-10-10] MEDS: Acetaminophen/HYDROcodone 325-5 MG Tab PO PRN (10:14)
[2023-10-11] MEDS: OLANZAPINE 10 MG SL SCH (17:51)
[2023-10-12] MEDS: traMADol 50 MG Tab PO PRN (02:20)
[2023-10-13] MEDS: Melatonin 3 MG Tab PO PRN (01:00)
[2023-10-13] MEDS: Furosemide 40 MG Tab PO SCH (21:15)
[2023-10-13] MEDS: Amitriptyline 25 MG Tab PO SCH (22:16)
[2023-10-14 14:32] LABS: BASOPHILS ABSOLUTE AUTO 0.02 K/uL (0.02-0.10); BASOPHILS PERCENT AUTO 0.2 % (0.0-0.5); EOSINOPHILS ABSOLUTE AUTO 0.18 K/uL (0.04-0.40); EOSINOPHILS PERCENT AUTO 1.9 % (1.0-5.0); HEMATOCRIT 31.7 % (37.0-47.0); HEMOGLOBIN 9.9 g/dL (11.5-16.5); LYMPHOCYTES ABSOLUTE AUTO 1.17 K/uL (1.50-4.00); LYMPHOCYTES PERCENT AUTO 12.1 % (20.0-40.0); MEAN CORPUSCULAR HEMOGLOBIN 31.6 pg (27.0-32.0); MEAN CORPUSCULAR HGB CONC 31.2 g/dL (31.0-35.0); MEAN CORPUSCULAR VOLUME 101 fL (76-96); MEAN PLATELET VOLUME 9.3 fL (6.0-10.0); MONOCYTES ABSOLUTE AUTO 0.89 K/uL (0.20-0.80); MONOCYTES PERCENT AUTO 9.2 % (3.0-10.0); NEUTROPHILS ABSOLUTE AUTO 7.43 K/uL (2.00-7.50); NEUTROPHILS PERCENT AUTO 76.6 % (45.0-70.0); PLATELET COUNT,PLT 372 K/uL (150-500); RED BLOOD CELL COUNT 3.13 M/uL (3.80-5.80); RED CELL DISTRIBUTION WIDTH 16.7 % (11.0-16.0); WHITE BLOOD CELL COUNT,WBC 9.7 K/uL (4.0-11.0)
[2023-10-14 14:40] LABS: A/G RATIO 0.6 (0.8-2.0); ALANINE AMINOTRANSFERASE,ALT 20 U/L (12-78); ALBUMIN 2.6 g/dL (3.4-5.0); ALKALINE PHOSPHATASE 266 U/L (46-116); ANION GAP 17.7 mmol/L (5.0-15.0); ASPARTATE AMNIOTRANSFERASE,AST 25 U/L (15-37); BILIRUBIN TOTAL 0.5 mg/dL (0.0-1.0); BLOOD UREA NITROGEN,BUN 18 mg/dL (8-26); BUN/CREATININE RATIO 16.7 (6-25); CALCIUM 7.9 mg/dL (8.5-10.1); CARBON DIOXIDE,CO2 23.3 mmol/L (21.0-32.0); CHLORIDE,CL 105 mmol/L (98-107); CREATININE 1.08 mg/dL (0.55-1.02); ESTIMATED GFR 55 mL/min (>60); GLUCOSE RANDOM 87 mg/dL (74-100); PROTEIN TOTAL,TP 6.9 g/dL (6.4-8.2); SODIUM,NA 142 mmol/L (136-145)
[2023-10-14] MEDS: Potassium Chloride 20 MEQ Tab.ER PO SCH (15:44)
[2023-10-14] MEDS ORDERED: Methocarbamol 500 MG Tab PO SCH (20:00)
[2023-10-14] MEDS: Methocarbamol 500 MG Tab PO SCH (21:29)
[2023-10-16] MEDS: Loratadine 10 MG Tab PO SCH (07:50)
[2023-10-16 09:28] LABS: A/G RATIO 0.6 (0.8-2.0); ALANINE AMINOTRANSFERASE,ALT 16 U/L (12-78); ALBUMIN 2.4 g/dL (3.4-5.0); ALKALINE PHOSPHATASE 258 U/L (46-116); ASPARTATE AMNIOTRANSFERASE,AST 33 U/L (15-37); BILIRUBIN TOTAL 0.5 mg/dL (0.0-1.0); BLOOD UREA NITROGEN,BUN 14 mg/dL (8-26); BUN/CREATININE RATIO 13.7 (6-25); CALCIUM 7.6 mg/dL (8.5-10.1); CARBON DIOXIDE,CO2 25.7 mmol/L (21.0-32.0); CREATININE 1.02 mg/dL (0.55-1.02); ESTIMATED GFR 59 mL/min (>60); GLUCOSE RANDOM 85 mg/dL (74-100); POTASSIUM,K 5.6 mmol/L (3.5-5.1); PROTEIN TOTAL,TP 6.5 g/dL (6.4-8.2); SODIUM,NA 140 mmol/L (136-145)
[2023-10-16 09:39] LABS: ANION GAP 15.9 mmol/L (5.0-15.0); CHLORIDE,CL 104 mmol/L (98-107)
[2023-10-18] MEDS ORDERED: Potassium Chloride 20 MEQ Tab.ER PO SCH (08:00)
[2023-10-20] MEDS: Acetaminophen 500 MG Tab PO PRN (18:22)
[2023-10-22] MEDS: DEXAMETHASONE 0.5 MG PO SCH (10:10)
[2023-10-26] MEDS: Furosemide 20 MG Tab PO SCH (12:48)
[2023-10-26 15:29] LABS: ANION GAP 11.8 mmol/L (5.0-15.0); BUN/CREATININE RATIO 23.8 (6-25); CALCIUM 8.1 mg/dL (8.5-10.1); CREATININE 0.84 mg/dL (0.55-1.02); EST CRCL DRUG DOSING (CG) 45.84 mL/min; POTASSIUM,K 3.8 mmol/L (3.5-5.1)
[2023-10-28] MEDS: Midodrine 5 MG Tab ONE (23:19)
[2023-10-31 13:56] VITALS: BP 110/72; PULSE 86
== END 2023-10-31 15:30 | disposition home or self-care (01) | DRG 948 ==
LOC: LB.MS 17:36
PROVIDERS: ADMIT Surgery; ATTEND Surgery
DX: R53.83 Other fatigue (principal); E46 Unspecified protein-calorie malnutrition; J44.9 Chronic obstructive pulmonary disease, unspecified; E03.9 Hypothyroidism, unspecified; K21.9 Gastro-esophageal reflux disease without esophagitis; M19.90 Unspecified osteoarthritis, unspecified site; G43.909 Migraine, unspecified, not intractable, without status migrainosus; J45.909 Unspecified asthma, uncomplicated; I48.91 Unspecified atrial fibrillation; M81.0 Age-related osteoporosis without current pathological fracture; K74.60 Unspecified cirrhosis of liver; I50.9 Heart failure, unspecified; F17.210 Nicotine dependence, cigarettes, uncomplicated; Z68.20 Body mass index [BMI] 20.0-20.9, adult; Z88.1 Allergy status to other antibiotic agents; Z88.0 Allergy status to penicillin; Z88.8 Allergy status to other drugs, medicaments and biological substances; Z98.49 Cataract extraction status, unspecified eye; Z90.710 Acquired absence of both cervix and uterus; Z90.721 Acquired absence of ovaries, unilateral
CPT/HCPCS: 36415; 80048; 80053; 84132; 85025; 86580; 92526-GN; 92610-GN; 97110-GO; 97110-GP; 97116-GP; 97161-GP; 97165-GO; 97530-GO; 97530-GP; 97535-GO; 99305; 99308; 99315; A9270-GY

== ENCOUNTER 2024-01-13 20:55 | Inpatient (IN) | payer MEDICARE, BC, OTHER ==
[2024-01-13] MEDS ORDERED: Sodium Chloride 0.9% 10 ML Syringe FLUSH PRN (21:36)
[2024-01-13 22:18] LABS: HEMATOCRIT 28.6 % (37.0-47.0); HEMOGLOBIN 8.5 g/dL (11.5-16.5); MEAN CORPUSCULAR HEMOGLOBIN 23.7 pg (27.0-32.0); MEAN CORPUSCULAR HGB CONC 29.7 g/dL (31.0-35.0); MEAN PLATELET VOLUME 9.6 fL (6.0-10.0); RED BLOOD CELL COUNT 3.58 M/uL (3.80-5.80); RED CELL DISTRIBUTION WIDTH 19.1 % (11.0-16.0); WHITE BLOOD CELL COUNT,WBC 6.8 K/uL (4.0-11.0)
[2024-01-13 22:30] LABS: INFLUENZA A NAA NEGATIVE (NEGATIVE); INFLUENZA B NAA NEGATIVE (NEGATIVE); RESPIRATORY SYNCYTIAL VIR NAA NEGATIVE (NEGATIVE)
[2024-01-13 22:34] LABS: CORONAVIRUS COVID-19 NAA NEGATIVE (NEGATIVE)
[2024-01-13 22:38] LABS: A/G RATIO 0.7 (0.8-2.0); ALBUMIN 2.8 g/dL (3.4-5.0); BILIRUBIN TOTAL 0.3 mg/dL (0.0-1.0); CREATININE 1.32 mg/dL (0.55-1.02); EST CRCL DRUG DOSING (CG) 31.37 mL/min; POTASSIUM,K 4.8 mmol/L (3.5-5.1); PROTEIN TOTAL,TP 6.8 g/dL (6.4-8.2)
[2024-01-13 22:59] LABS: ANION GAP 19.5 mmol/L (5.0-15.0); CALCIUM 7.9 mg/dL (8.5-10.1); CARBON DIOXIDE,CO2 16.3 mmol/L (21.0-32.0)
[2024-01-13] MEDS ORDERED: Furosemide 40 MG/4 ML VIAL IVPUSH ONE (23:06)
[2024-01-13] MEDS: Albuterol/Ipratropium 3.0-0.5 MG/3 ML Neb Soln NEB SCH (23:07)
[2024-01-13] MEDS: Furosemide 20 MG/2 ML VIAL IVPUSH ONE (23:20)
[2024-01-13] MEDS: Albuterol/Ipratropium 3.0-0.5 MG/3 ML Neb Soln ONE (23:21)
[2024-01-13] MEDS: Furosemide 40 MG/4 ML VIAL ONE (23:21)
[2024-01-13] MEDS ORDERED: Albuterol 0.083% 2.5 MG/3 ML Neb Soln NEB PRN (23:39)
[2024-01-14] MEDS: Nicotine 14 MG/24 Hr Patch TRDERM SCH (00:56)
[2024-01-14] MEDS: Melatonin 3 MG Tab PO SCH (02:16)
[2024-01-14] MEDS: Amitriptyline 25 MG Tab PO SCH (02:16)
[2024-01-14] MEDS: Acetaminophen/HYDROcodone 325-5 MG Tab PO PRN ×2 (05:51→10:56)
[2024-01-14] MEDS ORDERED: FLU (Fluad Triv) TS24-25 (65UP)/MF59C/PF 45 MCG/0.5 ML Syringe IM ONE (10:00)
[2024-01-14] MEDS: Magnesium Oxide 400 MG Tab PO SCH (10:57)
[2024-01-14] MEDS: Levothyroxine 50 MCG Tab PO SCH (10:58)
[2024-01-14] MEDS: Midodrine 5 MG Tab PO SCH (11:00)
[2024-01-14] MEDS: Metoprolol Tartrate 25 MG Tab PO SCH (11:00)
[2024-01-14] MEDS: Potassium Chloride 20 MEQ Tab.ER PO SCH (11:04)
[2024-01-14] MEDS: Furosemide 20 MG/2 ML VIAL IVPUSH SCH (11:05)
[2024-01-14] MEDS: Sulfamethoxazole/Trimethoprim 800-160 MG Tab PO SCH (11:06)
[2024-01-14 11:08] VITALS: BP 109/76
[2024-01-14 14:57] VITALS: PULSE 92
[2024-01-14] MEDS ORDERED: Melatonin 3 MG Tab PO SCH (20:00)
[2024-01-14] MEDS ORDERED: Amitriptyline 25 MG Tab PO SCH (20:00)
== END 2024-01-14 14:20 | disposition home or self-care (01) | DRG 292 ==
LOC: LB.ED 20:55 → LB.MS 23:30 → UNDOADMIN 23:30 → LB.MS 23:39
PROVIDERS: ADMIT Surgery; ATTEND Surgery
DX: I50.43 Acute on chronic combined systolic (congestive) and diastolic (congestive) heart failure (principal); J90 Pleural effusion, not elsewhere classified; N17.9 Acute kidney failure, unspecified; I50.813 Acute on chronic right heart failure; N18.9 Chronic kidney disease, unspecified; F17.210 Nicotine dependence, cigarettes, uncomplicated; Z79.890 Hormone replacement therapy; I48.91 Unspecified atrial fibrillation; Z91.048 Other nonmedicinal substance allergy status; K21.9 Gastro-esophageal reflux disease without esophagitis; E03.9 Hypothyroidism, unspecified; K74.60 Unspecified cirrhosis of liver; J44.89 Other specified chronic obstructive pulmonary disease; M81.0 Age-related osteoporosis without current pathological fracture; M19.90 Unspecified osteoarthritis, unspecified site; R09.02 Hypoxemia; G43.909 Migraine, unspecified, not intractable, without status migrainosus; Z88.0 Allergy status to penicillin; Z88.1 Allergy status to other antibiotic agents; Z88.8 Allergy status to other drugs, medicaments and biological substances; Z79.899 Other long term (current) drug therapy; Z98.49 Cataract extraction status, unspecified eye; Z90.710 Acquired absence of both cervix and uterus; Z98.890 Other specified postprocedural states; Z90.721 Acquired absence of ovaries, unilateral
CPT/HCPCS: 0241U; 36415; 71045; 80053; 83880; 85027; 93005; 93010; 96374; 99222; 99238; 99285-25; A9270-GY; J1940; J7620

== ENCOUNTER 2024-01-24 23:49 | Emergency (ER) | payer MEDICARE, BC, OTHER ==
[2024-01-24] MEDS ORDERED: Azithromycin 250 MG Tab ONE (23:55)
[2024-01-25] MEDS: Albuterol/Ipratropium 3.0-0.5 MG/3 ML Neb Soln NEB PRN (00:05)
[2024-01-25 00:40] LABS: BASOPHILS ABSOLUTE AUTO 0.02 K/uL (0.02-0.10); BASOPHILS PERCENT AUTO 0.3 % (0.0-0.5); EOSINOPHILS ABSOLUTE AUTO 0.07 K/uL (0.04-0.40); HEMATOCRIT 30.1 % (37.0-47.0); HEMOGLOBIN 8.8 g/dL (11.5-16.5); LYMPHOCYTES PERCENT AUTO 25.9 % (20.0-40.0); MEAN CORPUSCULAR HEMOGLOBIN 22.7 pg (27.0-32.0); MEAN CORPUSCULAR HGB CONC 29.2 g/dL (31.0-35.0); MEAN CORPUSCULAR VOLUME 78 fL (76-96); MEAN PLATELET VOLUME 9.1 fL (6.0-10.0); MONOCYTES ABSOLUTE AUTO 0.72 K/uL (0.20-0.80); MONOCYTES PERCENT AUTO 10.4 % (3.0-10.0); NEUTROPHILS ABSOLUTE AUTO 4.33 K/uL (2.00-7.50); NEUTROPHILS PERCENT AUTO 62.4 % (45.0-70.0); PLATELET COUNT,PLT 220 K/uL (150-500); RED BLOOD CELL COUNT 3.87 M/uL (3.80-5.80); RED CELL DISTRIBUTION WIDTH 19.9 % (11.0-16.0); WHITE BLOOD CELL COUNT,WBC 6.9 K/uL (4.0-11.0)
[2024-01-25 01:01] LABS: A/G RATIO 0.8 (0.8-2.0); ALBUMIN 3.1 g/dL (3.4-5.0); ANION GAP 18.3 mmol/L (5.0-15.0); BILIRUBIN TOTAL 0.6 mg/dL (0.0-1.0); BUN/CREATININE RATIO 20.9 (6-25); CALCIUM 8.4 mg/dL (8.5-10.1); CARBON DIOXIDE,CO2 21.4 mmol/L (21.0-32.0); CREATININE 1.53 mg/dL (0.55-1.02); EST CRCL DRUG DOSING (CG) 27.06 mL/min; POTASSIUM,K 3.7 mmol/L (3.5-5.1); PROTEIN TOTAL,TP 7.2 g/dL (6.4-8.2)
[2024-01-25 01:03] LABS: INFLUENZA A NAA NEGATIVE (NEGATIVE); INFLUENZA B NAA NEGATIVE (NEGATIVE); RESPIRATORY SYNCYTIAL VIR NAA NEGATIVE (NEGATIVE)
[2024-01-25 01:05] LABS: CORONAVIRUS COVID-19 NAA NEGATIVE (NEGATIVE)
[2024-01-25] MEDS: Furosemide 40 MG/4 ML VIAL ONE (01:23)
[2024-01-25] MEDS: Furosemide 40 MG/4 ML VIAL IVPUSH ONE (01:24)
[2024-01-25 08:31] VITALS: BP 106/76; PULSE 61
== END 2024-01-25 08:35 | disposition home or self-care (01) ==
LOC: LB.ED 23:49
DX: J18.9 Pneumonia, unspecified organism (principal); J44.1 Chronic obstructive pulmonary disease with (acute) exacerbation; K21.9 Gastro-esophageal reflux disease without esophagitis; E03.9 Hypothyroidism, unspecified; Z90.710 Acquired absence of both cervix and uterus; Z88.0 Allergy status to penicillin; Z79.899 Other long term (current) drug therapy
CPT/HCPCS: 0241U; 36415; 71045; 80053; 83880; 85025; 94640; 96374; 99284; 99285-25; A9270-GY; J1940; J7620

== ENCOUNTER 2024-04-03 13:51 | Emergency (ER) | payer MEDICARE, BC, OTHER ==
[2024-04-03 14:34] VITALS: PULSE 73
[2024-04-03 18:04] VITALS: BP 116/90
== END 2024-04-03 15:12 | disposition home or self-care (01) ==
LOC: LB.ED 13:51
DX: S83.411A Sprain of medial collateral ligament of right knee, initial encounter (principal); S80.01XA Contusion of right knee, initial encounter; J44.89 Other specified chronic obstructive pulmonary disease; E03.9 Hypothyroidism, unspecified; Z90.710 Acquired absence of both cervix and uterus; Z79.899 Other long term (current) drug therapy; Z79.890 Hormone replacement therapy; Z88.0 Allergy status to penicillin; Z88.8 Allergy status to other drugs, medicaments and biological substances; Z91.048 Other nonmedicinal substance allergy status; W01.0XXA Fall on same level from slipping, tripping and stumbling without subsequent striking against object, initial encounter
CPT/HCPCS: 73560-RT; 99283; 99284; A0425; A0428

== ENCOUNTER 2024-08-04 19:15 | Emergency (ER) | payer MEDICARE, BC, OTHER ==
[2024-08-04] MEDS ORDERED: Sodium Chloride 0.9% 10 ML Syringe FLUSH PRN (19:29)
[2024-08-04] MEDS: Aspirin 81 MG Tab.Chew PO ONE (19:54)
[2024-08-04 20:27] LABS: HEMATOCRIT 47.6 % (37.0-47.0); HEMOGLOBIN 16.7 g/dL (11.5-16.5); MEAN CORPUSCULAR HEMOGLOBIN 34.6 pg (27.0-32.0); MEAN CORPUSCULAR HGB CONC 35.1 g/dL (31.0-35.0); MEAN PLATELET VOLUME 8.4 fL (6.0-10.0); RED BLOOD CELL COUNT 4.82 M/uL (3.80-5.80); RED CELL DISTRIBUTION WIDTH 14.6 % (11.0-16.0); WHITE BLOOD CELL COUNT,WBC 6.9 K/uL (4.0-11.0)
[2024-08-04] MEDS ORDERED: Lactated Ringers 1,000 ML IV SCH (20:45)
[2024-08-04 20:53] LABS: ALBUMIN 3.7 g/dL (3.4-5.0); ANION GAP 21.1 mmol/L (5.0-15.0); BILIRUBIN TOTAL 0.6 mg/dL (0.0-1.0); BUN/CREATININE RATIO 10.4 (6-25); CALCIUM 9.5 mg/dL (8.5-10.1); CARBON DIOXIDE,CO2 19.5 mmol/L (21.0-32.0); CREATININE 1.34 mg/dL (0.55-1.02); EST CRCL DRUG DOSING (CG) 35.85 mL/min; POTASSIUM,K 3.6 mmol/L (3.5-5.1); PROTEIN TOTAL,TP 7.5 g/dL (6.4-8.2)
[2024-08-04] MEDS: Dextrose 5% in Water 1,000 ML IV SCH (21:11)
[2024-08-04 21:19] LABS: INR 1.3 (1.0-3.5)
[2024-08-04 21:21] LABS: PROTHROMBIN TIME 13.3 sec (9.0-11.5)
[2024-08-04 22:46] VITALS: BP 157/95; PULSE 108
== END 2024-08-04 21:48 ==
LOC: LB.ED 19:15
DX: G45.9 Transient cerebral ischemic attack, unspecified (principal); E03.9 Hypothyroidism, unspecified; K21.9 Gastro-esophageal reflux disease without esophagitis; J44.9 Chronic obstructive pulmonary disease, unspecified; Z91.048 Other nonmedicinal substance allergy status; Z88.0 Allergy status to penicillin; Z88.1 Allergy status to other antibiotic agents; Z88.8 Allergy status to other drugs, medicaments and biological substances; Z79.899 Other long term (current) drug therapy; Z90.710 Acquired absence of both cervix and uterus
CPT/HCPCS: 36415; 70450; 80053; 80307; 82947; 83735; 85027; 85610; 93005; 93010; 96360; 99285; A9270; J7070